=== PATIENT | female | born 1960 | race Caucasian/White ===

== ENCOUNTER 2017-07-04 14:28 | Emergency (ER) | payer BC, SELFPAY ==
[2017-07-04 14:28] VITALS: BP 122/91; PULSE 66; RESP 18; TEMP 36.6; O2SAT 97; BMI 48.4
--- NOTE | 2017-07-04 14:33 | RAD_ITS ---
STUDY: X-RAY - RIGHT SHOULDER REASON FOR EXAM: Female, 56 years old. Pain. No known injury. TECHNIQUE: 4 view(s) of the shoulder. COMPARISON: None. FINDINGS: Normal glenohumeral articulation. There is hypertrophic osteoarthrosis of the acromioclavicular joint with inferior osseous spur formation. Normal acromion. Normal humeral head and visualized proximal humerus. The soft tissue structures are unremarkable. Normal visualized pulmonary apex. RAD/Shoulder min 2 Views IMPRESSION: Degenerative changes of the acromioclavicular joint. Electronically Signed: Mars Negrete MD at 15:58 EDT Tel [phone], Service support ,
--- NOTE | 2017-07-04 15:38 | ED.VISSUMM ---
- ER Visit Summary Date of Service: 07/04/17 Chief Complaint: Right shoulder pain History of Present Illness: The patient is a [address] Clement Mccray. She reports she has right shoulder pain began approximately 1 month ago. Is worsened over the course the past 1-2 weeks. It is a constant stabbing pain that is 9 out of 10 at worst and a 10 currently. Is worsened by laying on it or abduction. She relieved by rest and Tylenol. She reports that she has paresthesias in her right deltoid that are constant. She reports that all of the finger on her right hand go numb at times. This last approximately 2 minutes. She denies any neck pain. She is right-hand dominant. No recent trauma. No fall, MVA, or change in activity. Physical Examination: Vitals: Stable. Afebrile. General: Well-nourished and well-developed. Head: Normocephalic atraumatic. Neck: Supple, no lymphadenopathy. No JVD. Nontender. Cardiovascular: Regular rate and rhythm. No murmurs. Respiratory: No respiratory distress. Clear to auscultation bilaterally. Abdominal: Soft, nontender, nondistended, normal bowel sounds. No guarding, rebound, or peritoneal signs. Back: Nontender. Extremities: Mild sinus palpation is diffuse over her deltoid. Moderate tenderness palpation the right trapezius muscle. Mild tenderness palpation in the right rhomboid muscles. She has normal median/ulnar/radial nerve function and motor distributions. She reports that she has paresthesias in her left hand and the C5-T1 distribution. This includes all fingers and her forearm. She has a 2+ radial pulse. She has 2+ biceps and triceps reflexes.. Skin: Normal color, no rash. Neurologic: Alert and oriented ?3. Cranial nerves II through XII are intact. Normal strength and sensation. Psych: Normal affect. Test Results: X-ray is negative. Emergency Department Course and Treatment: An [facility] report was obtained which shows had 12 prescriptions for opiates in the past year. She is treated with oxycodone here. Pain is reproducible. She has no overlying erythema to suggest a septic joint. I do not think that this is an aortic dissection. She has had pain for 1 month. Treatment Plan: She will be discharged with a short course of oxycodone instructed to follow-up with Dr. Clement Mccray in 1 week if not improving. Disposition: To home in improved and stable condition. Impression: 1. Right shoulder pain, acute. This note was generated with [employer] dictation software. It may contain incorrect words, spelling, and punctuation that were not noted in review of the chart prior to signing ED Disposition - Plan for ED Patient: Disposition: Home or Assisted Living Chief Complaint: Upper Extremity Injury Instructions: ED Shoulder Pain [facility] Prescriptions: Oxycodone HCl/Acetaminophen [Percocet 5/325] 1 tablet PO Q6H PRN PRN 5 Days #20 tablet PRN Reason: Pain Referrals: Clement Mccray MD [Primary Care Provider] - 3-5 Days if not improving
[2017-07-04] MEDS: oxyCODONE 5 MG Tablet 10 MG PO (16:07)
== END 2017-07-04 16:09 | disposition home or self-care (01) ==
PROVIDERS: Emergency Provider Emergency Medicine; Family Provider Family Medicine; PCP Family Medicine
DX: M25.511 Pain in right shoulder (principal); R20.2 Paresthesia of skin; J45.909 Unspecified asthma, uncomplicated; I10 Essential (primary) hypertension; M19.90 Unspecified osteoarthritis, unspecified site; Z79.899 Other long term (current) drug therapy
CPT/HCPCS: 73030; 99283

== ENCOUNTER 2017-08-16 20:20 | Emergency (ER) | payer BC, SELFPAY ==
[2017-08-16 20:22] VITALS: BP 157/80; PULSE 71; RESP 22; TEMP 36.6; O2SAT 96; BMI 50.1
--- NOTE | 2017-08-16 21:10 | US_ITS ---
STUDY: VENOUS DOPPLER ULTRASOUND - BILATERAL LOWER EXTREMITIES REASON FOR EXAM: Female, 56 years old. Bilateral swelling lower extremities TECHNIQUE: Ultrasound evaluation of the deep vein system to include moreira-scale imaging and compression was performed. Moreira-scale imaging and Doppler sonographic evaluation, including duplex spectral analysis and qualitative color flow sonography, was performed. COMPARISON: None. FINDINGS: RIGHT LEG Common Femoral Vein: Normal compression, spontaneity and augmentation. Normal color Doppler. Common Femoral Vein/Greater Saphenous Junction: Normal compression, spontaneity and augmentation. Normal color Doppler. Deep Femoral Vein: Normal compression, spontaneity and augmentation. Normal color Doppler. Femoral Proximal: Normal compression, spontaneity and augmentation. Normal color Doppler. Femoral Middle: Normal compression, spontaneity and augmentation. Normal color Doppler. Femoral Distal: Normal compression, spontaneity and augmentation. Normal color Doppler. Popliteal Vein: Normal compression, spontaneity and augmentation. Normal color Doppler. Posterior Tibial Vein: Normal compression, spontaneity and augmentation. Normal color Doppler. Peroneal Vein: Normal compression, spontaneity and augmentation. Normal color Doppler. LEFT LEG Common Femoral Vein: Normal compression, spontaneity and augmentation. Normal color Doppler. Common Femoral Vein/Greater Saphenous Junction: Normal compression, spontaneity and augmentation. Normal color Doppler. Deep Femoral Vein: Normal compression, spontaneity and augmentation. Normal color Doppler. Femoral Proximal: Normal compression, spontaneity and augmentation. Normal color Doppler. Femoral Middle: Normal compression, spontaneity and augmentation. Normal color Doppler. Femoral Distal: Normal compression, spontaneity and augmentation. Normal color Doppler. Popliteal Vein: Normal compression, spontaneity and augmentation. Normal color Doppler. Posterior Tibial Vein: Normal compression, spontaneity and augmentation. Normal color Doppler. Peroneal Vein: Normal compression, spontaneity and augmentation. Normal color Doppler. US/Venous Duplex Imag/Servando Extrem IMPRESSION: Normal venous Doppler ultrasound of the bilateral lower extremities. Electronically Signed: Jorge Iverson MD at 22:15 EDT , Service support ,
[2017-08-16 21:31] LABS: Absolute Lymphocyte Count 2.29 X10^3/ul (0.83-4.51); Absolute Neutrophil Count 3.7 X10^3/uL (2.0-7.7); Basophil# 0.02 X10^3/uL; Basophil% 0.3 % (0-1); Eosinophil# 0.32 X10^3/uL; Eosinophils% 4.5 % (0-5); Hematocrit 33.2 % (37-47); Hemoglobin 10.6 g/dl (12.0-15.0); Lymphocyte # 2.29 X10^3/ul (4.0); Lymphocyte % 32.5 % (19-41); Mean Corp Hgb Conc 31.9 g/gl (32-36); Mean Corpuscular Hgb 30.8 pg (27.0-32.0); Mean Corpuscular Volume 96.5 fL (81-99); Monocyte# 0.71 X10^3/uL; Monocyte% 10.1 % (0-10); Neutrophil # 3.66 X10^3/uL (2.7-7.7); Platelet Count 208 K/mm3 (150-450); RBC Distribution Width CV 14.6 % (11.6-14.6); RBC Distribution Width SD 49.3 fl (35.1-43.9); Red Blood Count 3.44 M/mm3 (4.2-5.4)
[2017-08-16 21:32] LABS: POSITIVE COUNT NO; POSITIVE DIFFERENTIAL NO; POSITIVE MORPHOLOGY NO
[2017-08-16 21:52] LABS: Anion Gap 6 (5-15); BUN 17 mg/dL (7-18); BUN/Creat Ratio 14.9 RATIO (10-20); Calcium,Total 8.5 mg/dL (8.5-10.1); Chloride 107 mmol/L (98-107); Creatinine, Serum 1.14 mg/dL (0.55-1.02); EST Glomerular Filtration Rate 52 mL/min (>60); Est Glom Filt Rate - Afr Amer 64 mL/min (>60); Estimated Creatinine Clearance 56.25 ml/min; Glucose 101 mg/dL (74-106); Potassium 3.8 mmol/L (3.5-5.1); Sodium Level 143 mmol/L (136-145)
--- NOTE | 2017-08-16 22:30 | ED.DCSUM_ITS ---
- ER Visit Summary Date of Service: 08/16/17 Chief Complaint: [Leg swelling and redness] History of Present Illness: The patient is a 56 F [presents the emergency department with complaint of 2 day history of swelling in her legs and redness. Patient states that typically she gets swelling in her legs that usually resolves at night and then gets worse again throughout the day. Patient states over last 2 days the swelling is has not been going away. Patient is noticed some redness to both lower extremities as well. Patient states that it is possible she may have bumped the right leg on something but she does not recall any direct trauma. Patient has no history of congestive heart failure or kidney disease. She does have a history of hypertension. No travel history or recent surgery. Patient's last surgery was in February of this year. Patient denies any chest pain or shortness of breath.] Physical Examination: [HEENT-PERRLA, EOMI. Cranial nerves II through XII grossly intact. TMs clear. Mucous membranes moist. No adenopathy. Cardiovascular-regular rate and rhythm without murmur or ectopy Lungs-clear to auscultation, chest wall stable without crepitus or subcu emphysema Abdomen-normoactive bowel sounds, soft, nontender, no rebound or rigidity, no peritoneal signs. Extremities-intact ?4, normal range of motion, normal pulses. Patient has +3 edema both lower extremities from below the knee to the feet. Patient has faint erythema and cellulitis of both lower extremities noted. No ropes or cords palpated. Patient has normal dorsal pedal and posterior tibial pulses bilaterally. Patient has normal popliteal and femoral pulses bilaterally. Test Results: [Venous Dopplers of both lower extremities were obtained and were negative for DVT. CBC with differential obtained showed a white blood cell count of 7.0, hemoglobin 10.6, hematocrit 33, platelets 208. Chemistries unremarkable. BUN was 17 and creatinine was 1.14.] Emergency Department Course and Treatment: [Patient was given 3 g of Unasyn IV] Treatment Plan: [Patient will be started on Keflex and will be discharged home with instructions to follow-up with her primary care physician within next 3-5 days. Patient to return if increased redness, fever, chills, or condition should worsen in any way.] Disposition: [Discharged home in stable condition] Impression: [Bilateral lower extremity cellulitis Bilateral lower extremity edema] This note was generated with [employer] dictation software. It may contain incorrect words, spelling, and punctuation that were not noted in review of the chart prior to signing ED Disposition - Plan for ED Patient: Chief Complaint: Edema Referrals: Clement Mccray MD [Primary Care Provider] -
--- NOTE | 2017-08-16 22:30 | ED.DEP ---
ED Disposition - Plan for ED Patient: Chief Complaint: Edema Instructions: ED Leg Swelling Bilateral, ED Infec Skin Cellulitis Prescriptions: Cephalexin [Keflex] 500 mg PO Q6 #40 cap Referrals: Clement Mccray MD [Primary Care Provider] - 3-5 Days
[2017-08-16] MEDS: HYDROcodone Bitartrate/Apap 5/325 Tablet PO (22:50)
[2017-08-16 22:52] VITALS: BP 150/68; PULSE 79; RESP 18; O2SAT 96
== END 2017-08-16 22:53 | disposition home or self-care (01) ==
LOC: ED 21:59
PROVIDERS: Emergency Provider Emergency Medicine; Family Provider Family Medicine; PCP Family Medicine
DX: L03.116 Cellulitis of left lower limb (principal); L03.115 Cellulitis of right lower limb; R60.0 Localized edema; I10 Essential (primary) hypertension; Z96.653 Presence of artificial knee joint, bilateral
CPT/HCPCS: 80048; 85025; 93970; 96365; 99284; J0295

== ENCOUNTER → 2017-09-13 12:38 | Outpatient (CLI) | payer BC, SELFPAY ==
--- NOTE | 2017-09-13 12:42 | ECHOD_ITS ---
Reason For Study: SOB Procedure This was a 2D Doppler, Color Flow transthoracic echocardiogram. The exam was of poor technical quality due to body habitus. The study was technically difficult. Contrast injection was performed. Exam performed in department. Left Ventricle Normal LV size. Left ventricular systolic function is normal. The estimated ejection fraction is 55 %. Normal diastology for age. No regional wall motion abnormalities noted. Right Ventricle Normal RV size. Normal systolic function. Atria The left atrium is mildly enlarged. Normal right atrium. No doppler evidence for ASD. Mitral Valve There is no mitral annular calcification. Normal mitral valve. Mild (1+) mitral valve insufficiency. Tricuspid Valve Normal tricuspid valve. Trivial tricuspid valve insufficiency. Right ventricular systolic pressure estimated to be 27 mmHg. Aortic Valve The aortic valve is not well visualized. Pulmonic Valve The pulmonic valve is not well visualized. Great Vessels Normal sized aortic root. Pericardium/Pleural No pericardial effusion. Medication 22 gauge I.V. with prn adaptor inserted into right arm. Diluted definity 7.0ml given slow IV push to enhance endocardial definition. MMode/2D Measurements & Calculations LVIDd: 4.2 cm IVSd: 1.4 cm Ao root diam: 3.0 cm LVIDs: 3.0 cm LVPWd: 1.4 cm LA dimension: 4.8 cm RVDd: 2.9 cm FS: 28.9 % LAV(MOD-bp): 69.3 ml LA A4 area: 20.7 cm2 RA A4 area: 14.4 cm2 LAV(MOD-bp) Indexed: 27.9 ml/m2 LAV(MOD-sp2): 72.5 ml LAV(MOD-sp4): 62.8 ml Doppler Measurements & Calculations MV E max agustin: 102.7 cm/sec Lat Peak E' Agustin: 12.1 cm/sec Med Peak E' Agustin: 7.2 cm/sec MV A max agustin: 72.3 cm/sec E/E' lat: 8.5 E/E' med: 14.2 MV E/A: 1.4 Ao V2 max: 141.4 cm/sec LV V1 max: 114.7 cm/sec PA V2 max: 86.8 cm/sec Ao max P.0 mmHg LV V1 max P.3 mmHg TR max agustin: 240.7 cm/sec TR max P.5 mmHg Interpretation Summary The study was technically difficult. Contrast injection was performed. Left ventricular systolic function is normal. The estimated ejection fraction is 55 %. The left atrium is mildly enlarged. Mild (1+) mitral valve insufficiency. Trivial tricuspid valve insufficiency. Right ventricular systolic pressure estimated to be 27 mmHg. Normal diastology for age. Ordering Physician: Clement Mccray Referring Physician: Clement Mccray Performed By: Brianda De La Cruz RDCS, RVT
== END ==
LOC: CVS 12:39
PROVIDERS: Family Provider Family Medicine; PCP Family Medicine; Visit Provider Family Medicine
DX: R06.02 Shortness of breath (principal); R60.9 Edema, unspecified
CPT/HCPCS: 93306; Q9957; A4216; C8929

== ENCOUNTER → 2017-10-31 11:18 | Outpatient (CLI) | payer BC, SELFPAY ==
[2017-10-31 15:52] LABS: Anion Gap 6 (5-15); BUN 21 mg/dL (7-18); BUN/Creat Ratio 16.9 RATIO (10-20); Calcium,Total 8.7 mg/dL (8.5-10.1); Chloride 104 mmol/L (98-107); Creatinine, Serum 1.24 mg/dL (0.55-1.02); EST Glomerular Filtration Rate 48 mL/min (>60); Est Glom Filt Rate - Afr Amer 58 mL/min (>60); Glucose 107 mg/dL (74-106); Potassium 4.1 mmol/L (3.5-5.1); Sodium Level 139 mmol/L (136-145)
== END ==
PROVIDERS: Family Provider Family Medicine; PCP Family Medicine; Visit Provider Family Medicine
DX: R60.9 Edema, unspecified (principal)
CPT/HCPCS: 36415; 80048

== ENCOUNTER → 2019-11-13 | Outpatient (CLI) | payer BC, SELFPAY ==
[2019-11-13 14:16] VITALS: BMI 50.1
== END | disposition home or self-care (01) ==
LOC: LABSPEC 15:59
PROVIDERS: PCP Family Medicine; Referring Provider Surgery; Visit Provider Surgery
DX: L02.11 Cutaneous abscess of neck (principal)
CPT/HCPCS: 87070; 87075; 87077; 87186; 87205

== ENCOUNTER 2019-12-18 11:52 | Day surgery (SDC) | payer BC, SELFPAY ==
--- NOTE | 2019-12-18 08:43 | HP_ITS ---
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 And Finishing Required: No Is patient in pain?: No Allergies No Known Allergies Allergy (Verified 11/27/19 13:15) Medications Atenolol 50 mg PO BID 09/15/16 [History Confirmed 11/27/19] Ibuprofen [Motrin] 800 mg PO TID PRN PRN #20 tab 09/15/16 [Rx Confirmed 11/27/19] Ropinirole HCl [Requip] 0.5 mg PO QHS 09/15/16 [History Confirmed 11/27/19] Meloxicam [Mobic] 15 mg PO DAILY 08/16/17 [History Confirmed 11/27/19] Multivitamin [Daily Multiple Vitamin] 1 ea PO DAILY 08/16/17 [History Confirmed 11/27/19] gabapentin 300 mg capsule ea PO 06/18/19 [History Confirmed 11/27/19] albuterol sulfate 90 mcg/actuation aerosol inhaler g INHALATION 11/13/19 [History Confirmed 11/27/19] Is last menstrual period known: No Post menopausal: Yes Patient : No PFSH Medical History Anemia (Acute) Asthma (Acute) Back pain (Acute) Depression (Acute) Morbid obesity (Acute) Restless leg (Acute) Arthritis (Chronic) HTN (hypertension) (Chronic) Surgical History History of section (Acute) History of total hip replacement (Acute) History of total knee replacement (TKR) (Acute) History of carpal tunnel release (Resolved) Family History Mother Asthma Father Kidney disease Sleep apnea Heart disease Brother Hypertension Cancer brain Sleep apnea Social History (Updated 11/27/19 @ 13:[address] Lg Gunn MD) Smoking Status: Former smoker HPI HPI HPI: COLT CLANCY, is a 59 F who presents to the office today for HPI HPI Surgical H&P: Yes HPI: COLT CLANCY, is a 59 F who presents to the office today for Excision of neck cyst ROS General General: No weight change or fatigue Cardio Cardiovascular: No murmur, pacemaker, heart disease, atrial fibrillation, high blood pressure, heart attack, heart stent, palpitations, shortness of breat with exertion or chest pain Psych Psychiatric: No depression or anxiety Resp Respiratory: No shortness of breath, No sleep apnea, No cough, No COPD, No asthma, No emphysema, No wheezing Gastro Gastrointestinal: No abdominal pain, No nausea or vomiting, No diarrhea, No constipation, No blood in stool, No acid reflux, No hemorrhoids, No ulcers, No gallbladder problem, No black,tarry stools Ottoniel Hematologic: No blood thinners Exam Const General: cooperative Orientation: alert, oriented x3 Resp Effort & Inspection: normal respiratory effort Auscultation: clear to auscultation bilaterally Cardio Rate: regular rate Rhythm: regular rhythm Heart Sounds: no murmurs GI Inspection: non-distended Palpation: soft, nontender Skin Other: Erythematous area over the posterior neck Office Procedures Incision and Drainage Provider Documentation Provider Documentation: The posterior neck was prepped and draped in usual sterile fashion. An area of the skin was anesthetized and a skin incision was made over the prior incision. This was deepened to the cavity of the sebaceous cyst. The patient still had purulent material as well as sebaceous material in the cyst. This was cleaned out and irrigated. The tissue surrounding the cyst was still very inflamed. At this time I was unable to remove the cyst wall. The cyst was packed with half-inch gauze. Alert Sherri Alert Billing: Yes Incision and Drainage 89542 Complex/Multiple Assessment & Plan Problems 1. Infected sebaceous cyst L72.3; L08.9 Plan The patient had I&D of infected sebaceous cyst of the posterior neck about a week ago. She was doing well after drainage and came in today for excision of the cyst. The cyst was still inflamed with purulent material. It was drained more extensively and all of the sebaceous material was removed from the cyst. It was irrigated and packed with half-inch gauze. Due to the inflammation around the cyst I was unable to remove the cyst wall. I will have her follow-up in 2 to 3 weeks for excision of the posterior neck cyst in the operating room. I discussed with her the risks of bleeding and infection and the patient would like to proceed with that plan. Lg Gunn MD Pager: [facility] [address] [place] [address], [address] [place] [id number] Office: Orders Orders: Incision and Drainage Today L08.9, L72.3 Coding Level of Care Code Attention Sherri Diagnoses Infected sebaceous cyst L72.3; L08.9 Additional Codes Incision and Drainage - I&D: 57270 Complex/Multiple (43430) I have re-examined the patient. There are no clinical changes since date of exam.
[2019-12-18 12:22] VITALS: BP 144/90; PULSE 55; RESP 16; TEMP 36.6; O2SAT 96; BMI 50.9
[2019-12-18] MEDS: Lactated Ringers 1,000 ML 100 ML IV (12:48)
[2019-12-18] MEDS: Cefazolin 2 GM in 0.9% Normal Saline 100 ML IV (13:14)
[2019-12-18 13:50] VITALS: BP 136/113; BP 144/90; PULSE 56; RESP 16; TEMP 36.3; O2SAT 99
[2019-12-18 13:55] VITALS: BP 144/90; BP 152/73; PULSE 55; RESP 16; O2SAT 96
--- NOTE | 2019-12-18 13:57 | PCM.OPRPT ---
Problem List (1) Infected sebaceous cyst Status: Acute Report of Operation Date of Procedure: 12/18/19 Pre-Operative Diagnosis: Infected sebaceous cyst of the posterior neck Post-Operative Diagnosis: Same Surgery/Procedure Performed:: Excision of infected sebaceous cyst, posterior neck Description of Procedure: Patient was brought back to the operating room and placed in a left lateral decubitus position. The posterior neck was prepped and draped in usual sterile fashion and MAC anesthesia was induced. The area surrounding the cyst was injected with local anesthetic and an elliptical incision was made and the skin was excised overlying the cyst. The deeper tissue was sharply excised as well and the cyst was fully removed. Electrocautery was used to maintain hemostasis. The cyst cavity was approximately 1.5 cm. The skin was closed with 3 interrupted 3-0 nylon sutures very loosely and bandage. Patient tolerated the procedure well. - Admit VTE Documentation VTE Mechan Device Prophylaxis: SCD's
[2019-12-18 14:00] VITALS: BP 144/90; BP 160/75; PULSE 53; RESP 16; O2SAT 97
--- NOTE | 2019-12-18 14:04 | DCINST_ITS ---
- Discharge Diagnoses Current Active Problems: Current Active and Chronic Problems (Last Reviewed 11/27/19 @ 13:15 by Anisa Guillermo) Infected sebaceous cyst (Acute) You will use the following diet at home:: Regular Discharge Activity: Return to Normal Activity Call your doctor if your incision/area has: Continuous Slow Oozing, Sudden Increased Bleeding, Increased Pain/ Swelling, Increased Redness, Foul Smelling Discharge, Swelling at the incision site Call your doctor if you observe: Fever of 101 or Higher Remove Dressing in (days):: 1 Cleanse incision/area with: Soap & Water Allergies/Adverse Reactions: Allergies No Known Allergies Allergy (Verified 12/11/19 08:40) Medications to take at Discharge Atenolol 50 mg PO BID 09/15/16 Ropinirole HCl [Requip] 0.5 mg PO QHS 09/15/16 Meloxicam [Mobic] 15 mg PO DAILY 08/16/17 Multivitamin [Daily Multiple Vitamin] 1 ea PO DAILY 08/16/17 gabapentin 300 mg capsule 300 mg PO BID 06/18/19 albuterol sulfate 90 mcg/actuation aerosol inhaler 1 puff INHALATION PRN PRN 11/13/19 Furosemide [Lasix] 40 mg PO DAILY 12/11/19 Potassium Chloride [Klor-Con] 20 meq PO DAILY 12/11/19 Test Results: Test results from this visit will be discussed in further detail at your follow- up appointment, if applicable. Please Follow Up With: Lg Gnun MD When: Please call to schedule 1 week follow up appointment. [phone]
[2019-12-18 14:05] VITALS: BP 144/90; BP 152/73; PULSE 53; RESP 16; TEMP 36.2; O2SAT 99
[2019-12-18 14:47] VITALS: BP 144/90
== END 2019-12-18 14:54 | disposition home or self-care (01) ==
LOC: SDC 11:53 → AC 11:55
PROVIDERS: PCP Family Medicine; Referring Provider Family Medicine; Visit Provider Surgery
PROC: (CPT 11422; principal; 2019-12-18 13:15)
DX: L72.3 Sebaceous cyst (principal); L08.9 Local infection of the skin and subcutaneous tissue, unspecified; Z20.828 Contact with and (suspected) exposure to other viral communicable diseases; I10 Essential (primary) hypertension; J45.909 Unspecified asthma, uncomplicated; G25.81 Restless legs syndrome; E66.01 Morbid (severe) obesity due to excess calories; Z79.1 Long term (current) use of non-steroidal anti-inflammatories (NSAID); Z79.899 Other long term (current) drug therapy; Z78.0 Asymptomatic menopausal state; Z87.891 Personal history of nicotine dependence
CPT/HCPCS: 11422; 87426; C9803; J7120

== ENCOUNTER 2019-12-28 14:44 | Emergency (ER) | payer BC, SELFPAY ==
[2019-12-28 14:46] VITALS: BP 151/85; PULSE 61; RESP 16; TEMP 36; O2SAT 96; BMI 49.4
--- NOTE | 2019-12-28 14:58 | RAD_ITS ---
STUDY: X-RAY - LEFT FOOT CLINICAL: Female, 59 years old. Left heel pain for several weeks. TECHNIQUE: 3 view(s) of the foot. COMPARISON: None. FINDINGS: There is a plantar calcaneal spur. Degenerative narrowing with dorsal spur formation of the tarsal-metatarsal articulations. There are deformities of the second through fifth metatarsal suggesting sequela of prior healed fracture. Normal metatarsophalangeal joint of the great toe. Normal tibial and fibular sesamoid bones. Normal interphalangeal joint of the great toe. Normal phalanges of the great toe. Normal second through fifth metatarsophalangeal joints. Normal interphalangeal joints and phalanges of the lesser toes. The soft tissue structures are unremarkable. RAD/Foot min 3 Views IMPRESSION: No acute fracture. Calcaneal spur. Degenerative changes of the midfoot. Old metatarsal fractures. Electronically Signed: Bhupendra Chatman MD ([place]) at 15:19 EST , Service support ,
--- NOTE | 2019-12-28 14:58 | ED.VIS.GEN ---
History of Present Illness Chief Complaint: Lower Extremity Injury Informant: Patient Onset: Month(s) - 1 month or more Context: Gradual Onset Timing: Waxes and wanes Current Severity: Mild Maximum Severity: Moderate Narrative: She presents with left foot pain. She states is been bothering her for a month or more but seems to be getting worse and having more difficulty ambulating. She points to the plantar surface of the foot near the calcaneus as well as along the medial aspect of the first MTP joint. No open wounds or erythema. Patient states she is been taking Tylenol without significant provement. - Past Medical History (1) Asthma Status: Chronic (2) Back pain Status: Chronic (3) Depression Status: Chronic (4) Arthritis Status: Chronic (5) HTN (hypertension) Status: Chronic Past Medical History - Allergies and Home Meds Allergies/Adverse Reactions: Allergies No Known Allergies Allergy (Verified 12/28/19 14:46) Primary Care Physician: Clement Mccray MD [Primary Care Provider] - Prior records reviewed: Yes Smoking Status: Former smoker Review of Systems General: Denies: Chills, Fever Eyes: Denies: Visual changes - bilaterally ENT: Denies: Bilateral ear pain Cardiovascular: Denies: Chest pain Respiratory: Denies: Dyspnea, Cough Gastrointestinal: Denies: Abdominal pain Musculoskeletal: Reports: Extremity Pain Skin: Denies: Rash, Wounds Neurological: Denies: Headache Hematologic: Denies: Easy bruising, Easy bleeding Allergy: Denies: Uticaria Physical Exam Vital Signs/Narrative: Vital Signs Temp Pulse Resp BP Pulse Ox 12/28/19 14:46 96.8 F L 61 16 151/85 H 96 Inital Vital Signs reviewed: Yes General: Well nourished, Well developed Head: Normocephalic ENT: Moist mucous membranes Neck: Supple Cardiovascular: Regular rate, Regular rhythm Respiratory: No distress, CTA bilaterally Abdomen: Soft, Nontender Extremities: - - Tenderness palpation on the plantar surface of the foot near the calcaneus. Patient also has tenderness on the medial foot at the MTP joint. No erythema or edema. Good distal pulses. No open wounds. Neurological: Alert, Oriented x3, Normal Strength, Normal Sensation Psychological: Normal affect Diagnostic/Tx/Re-eval Left foot x-ray per my interpretation reveals arthritic changes. She does have significant calcaneal heel spur. - Medical Decision Making Patient was given naproxen. Fredis wrap was applied to the left foot and x-rays are reviewed with her. Patient will follow up with her educational consultant in [place]. I will write her work restrictions as she does state she is on her feet all day at work. ED Disposition - Plan for ED Patient: Disposition: Home or Assisted Living Diagnosis: Plantar fasciitis Instructions: ED Heel Spur, ED Plantar Fasciitis Prescriptions: Naproxen [Naprosyn] 500 mg PO BID PRN PRN #20 tab PRN Reason: Pain Score 4-10 Transmission Status: Pending to [id number] Referrals: Clement Mccray MD [Primary Care Provider] - Maico Chopra DPM [STAFF PHYSICIAN] - As soon as possible
[2019-12-28] MEDS: Naproxen 500 MG Tablet PO (15:14)
== END 2019-12-28 15:24 | disposition home or self-care (01) ==
PROVIDERS: Emergency Provider Emergency Medicine; PCP Family Medicine
DX: M72.2 Plantar fascial fibromatosis (principal); M77.32 Calcaneal spur, left foot; I10 Essential (primary) hypertension; J45.909 Unspecified asthma, uncomplicated; M19.90 Unspecified osteoarthritis, unspecified site; F32.9 Major depressive disorder, single episode, unspecified; Z79.899 Other long term (current) drug therapy; Z87.891 Personal history of nicotine dependence
CPT/HCPCS: 73630; 99282

== ENCOUNTER → 2021-10-12 | Outpatient (CLI) | payer BC, SELFPAY ==
--- NOTE | 2021-10-12 13:03 | NEURO ---
NCS and/or EMG Patient Report Ordering Doctor: Clement Mccray DATE OF SERVICE: 10/12/21 Maritza presents for electrodiagnostic testing of the left upper limb. She reports numbness and tingling in the left hand. Electrodiagnostic findings: Left median motor nerve demonstrates prolonged distal latency with normal amplitude and reduced conduction velocity. Normal left ulnar motor response. Difficult to obtain a response above the left elbow secondary to the patient's body habitus. Left median F wave is prolonged. Normal left ulnar F-wave. Prolonged left median sensory latency at the wrist. On needle EMG, all muscles tested in the left upper limb showed no evidence of denervation with normal motor unit action potentials Electrodiagnostic impression: This is an abnormal study in the left upper limb 1. Electrodiagnostic findings demonstrate left-sided median mononeuropathy. This is consistent with a moderate left carpal tunnel syndrome.
== END | disposition home or self-care (01) ==
PROVIDERS: PCP Family Medicine; Referring Provider Family Medicine; Visit Provider Family Medicine
DX: G56.02 Carpal tunnel syndrome, left upper limb (principal)
CPT/HCPCS: 95886; 95910

== ENCOUNTER → 2022-10-11 | Outpatient (CLI) | payer BC, SELFPAY | END | disposition home or self-care (01) | LOC: CVS 09:02 | PROVIDERS: PCP Family Medicine; Referring Provider Family Medicine; Visit Provider Family Medicine | DX: M79.89 Other specified soft tissue disorders (principal) | CPT/HCPCS: 93306 ==

== ENCOUNTER → 2023-01-17 | Outpatient (CLI) | payer BC, SELFPAY ==
--- NOTE | 2023-01-17 08:18 | CT_ITS ---
STUDY: CT CHEST WITHOUT CONTRAST REASON FOR EXAM: Female, 62 years old. SOB COUGH RADIATION DOSAGE (If Supplied By Facility): CTDIvol = ( 28.09 ) mGy, DLP = ( 970.02 ) mGycm TECHNIQUE: Transaxial imaging was performed without the administration of intravenous contrast material. Individualized dose optimization techniques were used for this CT. COMPARISON: No relevant priors. FINDINGS: CHEST Benign-appearing bilateral axillary lymph nodes. The lungs are normal. There is no demonstrated pleural abnormality. There are calcifications of the coronary arteries. Normal mediastinum. Calcified left hilar lymph nodes. Normal unenhanced pulmonary arteries. Normal aorta arch and descending thoracic aorta. There are degenerative changes of the thoracic spine. Scattered calcified splenic granulomas. CT/Chest without Contrast IMPRESSION: No pulmonary abnormality is seen. Electronically Signed: Mars Negrete MD at 13:23 EST ,
== END | disposition home or self-care (01) ==
LOC: CT 08:16
PROVIDERS: PCP Family Medicine; Referring Provider Internal Medicine Pulmonary Disease; Visit Provider Internal Medicine Pulmonary Disease
DX: R06.02 Shortness of breath (principal); R05.9 Cough, unspecified
CPT/HCPCS: 71250

== ENCOUNTER → 2023-03-28 | Outpatient (CLI) | payer BC, SELFPAY ==
--- OUTSIDE RECORDS SUMMARY | 2023-03-28 11:30 | XMS RPT_ITS | CCD ---
Author Name Unknown Address [address] [place] [address] Organization [facility] Care Team Providers Care Cutting Supervisor Name Role Phone LISSETH HONAG Unavailable Unavailable LISSETH HOANG Unavailable Unavailable BENITO KING Unavailable Unavailable SHELL TELLEZ ([employer]) Unavailable Unavailable SHELL TELLEZ ([facility]) Unavailable Unavailable Promise Mccray MD Primary Care Provider [phone] PROMISE MCCRAY Primary Care Unavailable FLY DELUNA Referring Unavailable PROMISE MCCRAY Primary Care Unavailable FLY DELUNA Attending Unavailable PROMISE MCCRAY Primary Care Unavailable PROMISE MCCRAY Primary Care Unavailable Medications Completed/Discontinued Medications Medication Drug Class(es) Dates Sig (Normalized) Sig (Original) acetaminophen 500 mg oral tablet (5 sources) Start: 01-23-2017 take 2 tablets by mouth every eight hours acetaminophen (TYLENOL EXTRA STRENGTH) 500 mg tablet Take 2 tablets by mouth every 8 hours. 60 tablet 3 01/23/2017 Active Problems Active Problems Problem Classification Problem Date Documented Da te Episodic/Chronic Asthma (1 source) Mild intermittent asthma, uncomplicated; Translations: [Asthma, mild intermittent, poorly controlled] Onset: 11-01-2022 Chronic Deficiency and other anemia (5 sources) Anemia; Translations: [Anemia, unspecified] 05-30-2012 Episodic Disorders of lipid metabolism (5 sources) Hyperlipidemia; Translations: [Hyperlipidemia, unspecified] Onset: 04-07-2009 2009 Chronic Essential hypertension (5 sources) Benign essential hypertension; Translations: [Essential (primary) hypertension] 2009 Chronic Osteoarthritis (16 sources) Unilateral primary osteoarthritis, left hip; Translations: [Degenerative joint disease involving multiple joints] Onset: 08-25-2011 2009 Chronic Other connective tissue disease (5 sources) History of bilateral total knee replacement; Translations: [Presence of artificial knee joint, bilateral] Onset: 10-26-2016 10-26-2016 Chronic Other connective tissue disease (5 sources) History of total hip arthroplasty; Translations: [Presence of left artificial hip joint] Onset: 10-26-2016 01-24-2017 Chronic Other hereditary and degenerative nervous system conditions (1 source) Restless legs syndrome; Translations: [Restless legs syndrome (RLS)] Onset: 11-01-2022 Chronic Other nutritional; endocrine; and metabolic disorders (5 sources) Obesity; Translations: [Obesity, unspecified] 01-04-2017 Chronic Other nutritional; endocrine; and metabolic disorders (5 sources) Body mass index 40+ - severely obese; Translations: [Morbid (severe) obesity due to excess calories] Onset: 01-22-2017 01-24-2017 Chronic Other screening for suspected conditions (not mental disorders or infectious disease) (9 sources) Patient encounter status; Translations: [Encounter for screening mammogram for malignant neoplasm of breast] Onset: 05-30-2012 08-17-2022 Episodic Spondylosis; intervertebral disc disorders; other back problems (5 sources) Lumbosacral spondylosis without myelopathy; Translations: [Spondylosis without myelopathy or radiculopathy, lumbosacral region] Onset: 08-30-2016 08-30-2016 Chronic Unclassified (1 source) Unknown / UNK(Unknown) Onset: 01-16-2017 Past or Other Problems Problem Classification Problem Date Documented Da te Episodic/Chronic Diabetes mellitus without complication (5 sources) Impaired fasting glycemia; Translations: [Impaired fasting glucose] Onset: 04-07-2009 2009 Episodic Other non-traumatic joint disorders (5 sources) Hip pain; Translations: [Pain in unspecified hip] Onset: 03-27-2011 03-27-2011 Episodic Spondylosis; intervertebral disc disorders; other back problems (10 sources) Low back pain; Translations: [Lumbago] Onset: 05-28-2008 2009 Episodic Results Test Name Value Interpretation Reference Range Facil ity Vital Signs Date Time Vital Sign Value Performing Clinician Leif velasco 09-20-2022 11:18-0400 Body height 172.7 cm Fly Deluna MD Work Phone: [facility] 09-20-2022 11:18-0400 Body weight 162.84 kg Fly Deluna MD Work Phone: [facility] 09-20-2022 11:18-0400 Diastolic blood pressure 88 mm[Hg] Fly Deluna MD Work Phone: [facility] 09-20-2022 11:18-0400 Systolic blood pressure 142 mm[Hg] Fly Deluna MD Work Phone: [facility] Encounters Encounter Date Encounter Type Care Provider Facility Start: 11-01-2022 End: 11-02-2022 ambulatory PROMISE MCCRAY Facility:[facility] Start: 09-28-2022 Documentation procedure Mammog darien Coordinator [facility] Start: 09-28-2022 Letter encounter Mammography Coordinator [facility] Department Start: 09-27-2022 End: 09-27-2022 ambulatory FLY DELUNA Facility:[facility] Start: 09-27-2022 End: 09-27-2022 Subsequent hospital visit by physician Screen Mammo [facility] Mammogram Procedures Date Procedure Procedure Detail Performing Clinician Start: 09-27-2022 End: 09-27-2022 Mammography Fly Deluna MD Work Phone: Start: 03-31-2022 Radiologic exam ches t 2 views [facility] Provider Start: 03-23-2021 Mammography Fly palmer MD Work Phone: Start: 05-29-2012 Lipid 1996 panel - Serum or Plasma Screen [facility] Start: 12-12-2007 H/O: artificial joint KNEE JOINT REP LACEMENT Fly Deluna MD Work Phone: Plan of Treatment Date Care Activity Detail Author Start: 03-23-2026 HPV TESTING HPV TESTING [facility] Start: 03-23-2026 PAP TESTING PAP TESTING [facility] Start: 09-28-2023 Mammography [facility] Start: 10-06-2022 Covid-19 Vaccine () Covid-19 Vaccine () [facility] Start: 10-06-2022 Influenza vaccination [facility] Start: 05-28-2022 DIABETES SCREEN DIABETES SCREEN [facility] Start: 05-28-2022 Diabetes Screening Diabetes Screening [facility] Start: 03-23-2022 Mammography MAMMOGRAM [facility] Start: 02-05-2022 DEPRESSION ASSESSMENT DEPRESSION ASSESSMENT [facility] Start: 2021 RSV Vaccine (1 - 1-dose 60+ series) RSV Vaccine (1 - 1-dose 60+ series) [facility] Start: 11-23-2020 COVID-19 VACCINE (3 - Pfizer series) COVID-19 VACCINE (3 - Pfizer series) [facility] Start: 05-29-2017 Lipid 1996 panel - Serum or Plasma Lipid Screening [facility] Start: 05-29-2017 LIPID SCREEN LIPID SCREEN [facility] Start: 01-20-2014 Urine microalbumin profile [facility] Start: 10-22-2011 SHINGRIX VACCINE (1 of 2) SHINGRIX VACCINE (1 of 2) [facility] Start: 2006 COLOGUARD (FIT-DNA) COLOGUARD (FIT-DNA) [facility] Start: 2006 Colonoscopy COLONOSCOPY [facility] Start: 2006 COLORECTAL CANCER SCREENING COLORECTAL CANCER SCREENING [facility] Start: [address] COLONOGRAPHY [facility] Start: 2006 FECAL OCCULT BLOOD FECAL OCCULT BLOOD [facility] Start: 2006 SIGMOIDOSCOPY SIGMOIDOSCOPY [facility] Start: 10-22-1979 ANNUAL PCP TEAM CHRONIC DISEASE VISIT ANNUAL PCP TEAM CHRONIC DISEASE VISIT [facility] Start: 10-22-1979 BP CONTROLLED (<130/80) BP CONTROLLED (<130/80) [facility] Start: 10-22-1979 HEPATITIS C SCREENING HEPATITIS C SCREENING [facility] Start: 10-22-1979 HIV SCREENING HIV SCREENING [facility] End: 09-16-2023 CARLIN SCREENING CARLIN SCREENING Radiology Routine Encounter for screening mammogram for malignant neoplasm of breast 1 Occurrences starting 08/18/2022 until 09/16/2023 [facility] Work Phone: Immunizations Immunization Date Immunization Notes Care Provider Jing moseley 01-07-2020 influenza, injectabl e, quadrivalent, contains preservative Fly Deluna MD Work Phone: [facility] 01-07-2020 influenza virus vacc ine, unspecified formulation Screen Wstr [facility] 01-23-2017 influenza, injectabl e, quadrivalent, preservative free Fly Deluna MD Work Phone: [facility] 01-23-2017 pneumococcal polysaccharide vaccine, 23 valent Fly Deluna MD Work Phone: [facility] 02-24-2011 influenza virus vacc ine, unspecified formulation Fly Deluna MD Work Phone: [facility] 02-24-2011 pneumococcal polysaccharide vaccine, 23 valent Fly Deluna MD Work Phone: [facility] 12-08-2004 influenza virus vacc ine, unspecified formulation Fly Deluna MD Work Phone: [facility] Work Phone: 01-21-2004 tetanus and diphther ia toxoids, adsorbed, preservative free, for adult use (2 Lf of tetanus toxoid and 2 Lf of diphtheria toxoid) Fly Deluna MD Work Phone: [facility] Work Phone: 02-05-2003 diphtheria, tetanus toxoids and acellular pertussis vaccine, unspecified formulation Fly Deluna MD Work Phone: [facility] Work Phone: Payers Date Payer Category Payer Unknown [employer] PPO OOS [id number] 2012-Present [phone] [address] [place] [address] PPO [id number] 2012 Unknown [id number] Social History Date Type Detail Facility Start: 05-22-2012 End: 09-20-2022 Tobacco smoking status NHIS Ex-smoker [facility] Work Phone: End: 12-07-1994 History of tobacco use Current smoker [facility] Work Phone: End: 12-07-1994 History of tobacco use Cigarette Smoker [facility] Work Phone: Start: 05-22-2012 End: 01-13-2020 Cigarettes smoked current (pack per day) - Reported 1 [facility] Start: 05-22-2012 End: 09-20-2022 Tobacco use and exposure Smokeless tobacco non-user [facility] Work Phone: Start: 03-23-2021 End: 09-20-2022 Alcohol intake Current non-drinker of alcohol (finding) [facility] Start: 01-13-2020 End: 03-23-2021 Tobacco use panel [facility] National Score (1-10 0), lower number is lower risk Not on file [facility] Start: 05-22-2012 Alcohol Comment rarely [facility] Start: 1960 Sex Assigned At Not on file C [facility] Medical Equipment Procedure Code Equipment Code Equipment Origin al Text Equipment Identifier Dates Head Fem -2mm 36mm Hip M - [id number] Start: 02-23-2011 Head Articul/Andreas 36mm +5mm 01/18 Metal Femoral M-Spec Hip - [id number] Start: 01-23-2017 Clinical Notes 01-23-2017 to 09-28-2022 Letter - Coordinator, Mammography - 09/28/2022 4:41 PM Fly Dawn MD - 09/20/2022 11:09 AM EDTTelephone Encounter - Kari Hanks LPN - 08/18/2022 10:35 AM EDT Note Date & Type Note Facility 09-28-2022 Miscellaneous Notes September 29, 2022 PID: [id number] Maritza Mir [address] [place] [address] Dear Ms. Mir, We are pleased to inform you that the results of your recent breast imaging exam on 09/27/2022 are normal. Early detection of cancer is very important. We also understand recommendations regarding breast cancer screening are controversial. Please discuss with your primary care provider which strategy is best for you and whether a mammogram is right for you. Your imaging studies and report will be kept on file at [facility] as part of your permanent medical record and are available for your continuing care. Thank you for allowing us to help in meeting your health care needs. Sincerely, Dr. Teague Interpreting Radiologist [facility] (Normal over 40) documented in this encounter [facility] 09-20-2022 Note HNO ID: [id number] Author: Fly Deluna MD Service: ? Author Type: Physician Type: Progress Notes Filed: 09/20/2022 11:49 AM Note Text: Maritza is a 61 year old who presents for an annual gynecologic exam with c/o urinary leaking. Urgency at times. Leaks when she stands up at times. Doesn't usually get up at night. Drinks water and iced tea throughout the day. Postmenopausal: yes HRT use: No. Last Pap: 03/29/2021 normal HPV: 03/25/2021 negative History of abnormal pap: No Last mammogram: 2022 normal History of abnormal mammogram: No Sexually active: not often OB History T0 L3 SAB0 IAB0 Ectopic0 Multiple0 Live Births4 Docket Clerk History LMP: 11/17/2009, Ablation Age at Menarche: Age at First : Age at Menopause: Docket Clerk History Comments: Sexual Activity: Yes; Male Contraception: Tubal Ligation PAST MEDICAL HISTORY Diagnosis Date Anemia Asthma Back pain Depression Essential hypertension, benign Generalized osteoarthrosis, unspecified site Dr Hoang-davis Headache(784.0) Hyperlipidemia Impaired fasting glucose Nocturnal leg cramps spasms controlled with requip Obesity, unspecified Snoring PAST SURGICAL HISTORY Procedure Laterality Date ARTHRP ACETBLR/PROX FEM PROSTC AGRFT/ALGRFT 02/24/2011 right hip ARTHRP ACETBLR/PROX FEM PROSTC AGRFT/ALGRFT Left 01/2017 ARTHRP KNE CONDYLEANDPLATU MEDIALANDLAT COMPARTMENTS 11/12 left knee replacement ARTHRP KNE CONDYLEANDPLATU MEDIALANDLAT COMPARTMENTS 03/17/09 right [facility], [facility] , low cervical CYST/MOLE REMOVAL 12/2019 LIG/TRNSXJ FLP TUBE ABDL/VAG APPR UNI/BI 1998 Tubal ligation NEUROPLASTY AND/TRANSPOS MEDIAN NRV CARPAL TUNNE 2004 Carpal tunnel decomp RIGHT PAST SURGICAL HISTORY OF December 14, 2009 Diagnostic Hysteroscopy, Uterine Dilation and Curettage PAST SURGICAL HISTORY OF December 14, 2009 Novasure Endometrial Ablation UNSPECIFIED ORAL SURGERY PROCEDURE, BY REPORT 1980 jaw reconstruction FAMILY HISTORY Problem Relation Age of Onset Asthma Mother other (Fibromyalgia) Mother Emphysema Father Hypertension Father Coronary Artery Disease Father stent placement (late in life) other (sleep apnea) Father Hypertension Brother other (sleep apnea) Brother Cancer Son brain Colon Cancer No Family History SOCIAL HISTORY Social History Tobacco Use Smoking status: Former Packs/day: 1.00 Years: 15.00 Additional pack years: 0.00 Total pack years: 15.00 Types: Cigarettes Quit date: 12/07/1994 Years since quittin.8 Smokeless tobacco: Never Vaping Use Vaping Use: Never used Substance Use Topics Alcohol use: No Comment: rarely Drug use: No REVIEW OF SYSTEMS Abdomen: No abdominal pain, nausea, vomiting, diarrhea, or constipation. No bloating, early satiety, indigestion, or increased flatulence. Bladder: No dysuria, gross hematuria, urinary frequency, urinary urgency, or incontinence Breast: No breast lumps, nipple d/c, overlying skin changes, redness or skin retraction Allergies and current medication updated:Yes EXAM: BP 142/88 Ht 5' 8 (1.73m) Wt 359 lb (162.8kg) LMP 11/17/2009 BMI 54.60 kg/(m2). GENERAL: pleasant, female in no apparent distress HEENT: Normocephalic, atraumatic, mucus membranes moist, and no lesions NECK: Supple, full range of motion, no adenopathy, and thyroid normal DERMATOLOGY: Normal, without lesions, non-icteric, and non-hirsute BREAST: soft, non-tender, symmetric, no dominant mass, normal nipple-areolar complex, no lymphadenopathy, and no nipple discharge CHEST: Normal inspiratory effort ABDOMEN: soft, non-tender, and no masses, large pannus PELVIC: external genitalia normal, normal Bartholin's glands, urethra, [place]'s glands, no vulvar lesions, no cervical lesions, good vaginal support, physiologic discharge present, normal appearing perineal body and perianal region BIMANUAL: uterus normal size, shape and consistency, no adnexal masses, and non-tender RECTOVAGINAL: deferred. NEURO: alert and oriented x3,exam grossly non-focal EXTREMITIES: normal ASSESSMENT/PLAN: 1) Health maintenance: Pap/HPV up to date. Mammogram ordered mixed incontinence, d/w her would likely benefit from wt loss offered wt management appointment, has struggeled w/ wt usp 2) Follow up one year or sooner as needed Fly Deluna MD [facility] 09-20-2022 History of Present illness Narrative Maritza is a 61 year old who presents for an annual gynecologic exam with c/o urinary leaking. Urgency at times. Leaks when she stands up at times. Doesn't usually get up at night. Drinks water and iced tea throughout the day. Postmenopausal: yes HRT use: No. Last Pap: 03/29/2021 normal HPV: 03/25/2021 negative History of abnormal pap: No Last mammogram: 2022 normal History of abnormal mammogram: No Sexually active: not often OB History T0 L3 SAB0 IAB0 Ectopic0 Multiple0 Live Births4 Docket Clerk History LMP: 11/17/2009, Ablation Age at Menarche: Age at First : Age at Menopause: Docket Clerk History Comments: Sexual Activity: Yes; Male Contraception: Tubal Ligation PAST MEDICAL HISTORY Diagnosis Date Anemia Asthma Back pain Depression Essential hypertension, benign Generalized osteoarthrosis, unspecified site Dr Hoang-davis Headache(784.0) Hyperlipidemia Impaired fasting glucose Nocturnal leg cramps spasms controlled with requip Obesity, unspecified Snoring PAST SURGICAL HISTORY Procedure Laterality Date ARTHRP ACETBLR/PROX FEM PROSTC AGRFT/ALGRFT 02/24/2011 right hip ARTHRP ACETBLR/PROX FEM PROSTC AGRFT/ALGRFT Left 01/2017 ARTHRP KNE CONDYLE&PLATU MEDIAL&LAT COMPARTMENTS 11/12 left knee replacement ARTHRP KNE CONDYLE&PLATU MEDIAL&LAT COMPARTMENTS 03/17/09 right Knee replacement[facility] 1998,1994 , low cervical CYST/MOLE REMOVAL 12/2019 LIG/TRNSXJ FLP TUBE ABDL/VAG APPR UNI/BI 1998 Tubal ligation NEUROPLASTY &/TRANSPOS MEDIAN NRV CARPAL TUNNE 2004 Carpal tunnel decomp RIGHT PAST SURGICAL HISTORY OF December 14, 2009 Diagnostic Hysteroscopy, Uterine Dilation and Curettage PAST SURGICAL HISTORY OF December 14, 2009 Novasure Endometrial Ablation UNSPECIFIED ORAL SURGERY PROCEDURE, BY REPORT 1979 jaw reconstruction FAMILY HISTORY Problem Relation Age of Onset Asthma Mother other (Fibromyalgia) Mother Emphysema Father Hypertension Father Coronary Artery Disease Father stent placement (late in life) other (sleep apnea) Father Hypertension Brother other (sleep apnea) Brother Cancer Son brain Colon Cancer No Family History SOCIAL HISTORY Social History Tobacco Use Smoking status: Former Packs/day: 1.00 Years: 15.00 Additional pack years: 0.00 Total pack years: 15.00 Types: Cigarettes Quit date: 12/07/1994 Years since quittin.8 Smokeless tobacco: Never Vaping Use Vaping Use: Never used Substance Use Topics Alcohol use: No Comment: rarely Drug use: No REVIEW OF SYSTEMS Abdomen: No abdominal pain, nausea, vomiting, diarrhea, or constipation. No bloating, early satiety, indigestion, or increased flatulence. Bladder: No dysuria, gross hematuria, urinary frequency, urinary urgency, or incontinence Breast: No breast lumps, nipple d/c, overlying skin changes, redness or skin retraction Allergies and current medication updated:Yes EXAM: BP 142/88 Ht 5' 8 (1.73m) Wt 359 lb (162.8kg) LMP 11/17/2009 BMI 54.60 kg/(m^2). GENERAL: pleasant, female in no apparent distress HEENT: Normocephalic, atraumatic, mucus membranes moist, and no lesions NECK: Supple, full range of motion, no adenopathy, and thyroid normal DERMATOLOGY: Normal, without lesions, non-icteric, and non-hirsute BREAST: soft, non-tender, symmetric, no dominant mass, normal nipple-areolar complex, no lymphadenopathy, and no nipple discharge CHEST: Normal inspiratory effort ABDOMEN: soft, non-tender, and no masses, large pannus PELVIC: external genitalia normal, normal Bartholin's glands, urethra, [place]'s glands, no vulvar lesions, no cervical lesions, good vaginal support, physiologic discharge present, normal appearing perineal body and perianal region BIMANUAL: uterus normal size, shape and consistency, no adnexal masses, and non-tender RECTOVAGINAL: deferred. NEURO: alert and oriented x3,exam grossly non-focal EXTREMITIES: normal ASSESSMENT/PLAN: 1) Health maintenance: Pap/HPV up to date. 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 Kari Hanks LPN Please schedule. Fly Deluna MD See pended order below and pt will then be assisted to schedule appointment. Kari Hanks LPN Patient called requesting a carlin screening to be placed,can be reached at [phone] Marta Us documented in this encounter [facility] 03-31-2022 Note HNO ID: [id number] Author: RT Memo(R) Service: ? Author Type: Technologist Type: Progress Notes Filed: 03/31/2022 11:07 AM Note Text: Radiology Service Progress Note PATIENT NAME: Maritza Mir DATE OF SERVICE: March 31, 2022 TIME: 11:07 AM PATIENT IDENTITY VERIFICATION COMPLETED USING TWO (2) IDENTIFIERS: Name and Date of confirmed by patient verbally. FALL SCREENING: Has the patient had 2 falls in the last year or 1 fall with injury or currently using an Ambulatory Assistive Device (Walker, Cane, Wheelchair, Crutches, etc.)? No PATIENT GENDER DATA: Female. status: : No status: NO. PATIENT RELEVANT IMPLANT DATA REVIEWED: Not Applicable RADIOLOGY DEPARTMENT: General X-ray: Exam(s) Completed: Chest X-Ray PERIPHERAL IV DATA: Not applicable SIGNED BY: RT Memo(R) March 31, 2022 11:[address] [facility] 03-31-2022 History of Present illness Narrative Radiology Service Progress Note PATIENT NAME: Maritza Mir DATE OF SERVICE: March 31, 2022 TIME: 11:07 AM PATIENT IDENTITY VERIFICATION COMPLETED USING TWO (2) IDENTIFIERS: Name and Date of confirmed by patient verbally. FALL SCREENING: Has the patient had 2 falls in the last year or 1 fall with injury or currently using an Ambulatory Assistive Device (Walker, Cane, Wheelchair, Crutches, etc.)? No PATIENT GENDER DATA: Female. status: : No status: NO. PATIENT RELEVANT IMPLANT DATA REVIEWED: Not Applicable RADIOLOGY DEPARTMENT: General X-ray: Exam(s) Completed: Chest X-Ray PERIPHERAL IV DATA: Not applicable SIGNED BY: RT Memo(R) March 31, 2022 11:07 AM documented in this encounter [facility] documented as of this encounter (statuses as of 08/18/2022) [facility]12-19-2017 History of Past illness Narrative* Problem Noted Date Diagnosed Date Resolved Date OA (osteoarthritis) 01/23/2017 01/25/20 17 Osteoarthritis of hip 01/23/20172016 Overview: S/p LTHR 01/23/17 documented as of this encounter (statuses as of 09/21/2022) [facility]12-19-2017 History of Past illness Narrative* Problem Noted Date Diagnosed Date Resolved Date OA (osteoarthritis) 01/23/2017 01/25/20 17 Osteoarthritis of hip 01/23/20172016 Overview: S/p LTHR 01/23/17 documented as of this encounter (statuses as of 09/30/2022) [facility] History of Past illness Narrative* Problem Noted Date Diagnosed Date Resolved Date OA (osteoarthritis) 01/23/2017 01/25/20 17 Osteoarthritis of hip 01/23/20172016 Overview: S/p LTHR 01/23/17 documented as of this encounter (statuses as of 12/10/2022) [facility] History of Past illness Narrative* Problem Noted Date Diagnosed Date Resolved Date OA (osteoarthritis) 01/23/2017 01/25/20 Osteoarthritis of hip 01/23/20172016 Overview: S/p LTHR 01/23/17 documented as of this encounter (statuses as of 12/10/2022) [facility] Diagnosis Encounter for screening mammogram for malignant neoplasm of breast- Primary Other screening mammogram documented in this encounter [facility] note* Diagnosis Encounter for gynecological examination (general) (routine) without abnormal findings- Primary Encounter for screening mammogram for breast cancer documented in this encounter [facility] note* Diagnosis Encounter for screening mammogram for malignant neoplasm of breast Other screening mammogram documented in this encounter [facility] for referral (narrative)* Diagnostic Procedure Only (Routine) - Pending Review Specialty Diagnoses / Procedures Referred By Nathalie bojorquez Referred To Contact [facility] Diagnoses Encounter for screening mammogram for malignant neoplasm of breast Procedures CARLIN SCREENING SCREENING MAMMOGRAPHY BI 2-VIEW BREAST INC Fly Damon MD [address] [place] [address] [facility] [address] [place] [address] Referral ID Status Reason Start Date Expiration Date Visits Requested Visits Authorized [id number] Pending Review Auto-Generat ed Referral 08/18/2022 09/16/2023 1 1 [facility] for referral (narrative)* Diagnostic Procedure Only (Routine) - Pending Review Specialty Diagnoses / Procedures Referred By Nathalie bojorquez Referred To Contact [facility] Diagnoses Encounter for gynecological examination (general) (routine) without abnormal findings Encounter for screening mammogram for breast cancer Procedures CARLIN SCREENING SCREENING MAMMOGRAPHY BI 2-VIEW BREAST INC Fly Damon MD [address] [place] [address] [facility] [address] [place] [address] Referral ID Status Reason Start Date Expiration Date Visits Requested Visits Authorized [id number] Pending Review Auto-Generat ed Referral 09/20/2022 10/20/2023 1 1 T [facility] for referral (narrative)* Diagnostic Procedure Only (Routine) - Closed Specialty Diagnoses / Procedures Referred By Contac t Referred To Contact [facility] Diagnoses Encounter for screening mammogram for malignant neoplasm of breast Procedures CARLIN SCREENING SCREENING MAMMOGRAPHY BI 2-VIEW BREAST INC Fly Damon MD [address] [place] [address] [facility] [address] [place] [address] Referral ID Status Reason Start Date Expiration Date V isits Requested Visits Authorized [id number] Closed Auto-Generate d Referral 08/18/2022 09/16/2023 1 1 [facility] for visit Narrative* Diagnostic Procedure Only (Routine) - Closed Specialty Diagnoses / Procedures Referred By Nathalie bojorquez Referred To Contact [facility] Diagnoses Encounter for screening mammogram for malignant neoplasm of breast Procedures CARLIN SCREENING SCREENING MAMMOGRAPHY BI 2-VIEW BREAST INC Fly Damon MD [address] [place] [address] [facility] [address] [place] [id number] Referral ID Status Reason Start Date Expiration Date V isits Requested Visits Authorized [id number] Closed Auto-Generate d Referral 08/18/2022 09/16/2023 1 1 [facility] Summary Purpose Family History No Family History Records FoundNo Family History Records Found Advance Directives No Advanced Directives Records FoundNo Advanced Directives Records Found Additional Source Comments INFORMATION SOURCE (unrecogn ized section and content) DATE CREATED AUTHOR AUTHOR'S ORGANIZ ATION 11/09/2022 [facility] Source Comments (unrecognize d section and content) In the event this informatio n is protected by the Federal Confidentiality of Alcohol and Drug Abuse Patient Records regulations: The Federal rules restrict any use of the information to criminally investigate or prosecute any alcohol or drug abuse patient.[facility] the event this information is protected by the Federal Confidentiality of Alcohol and Drug Abuse Patient Records regulations: The Federal rules restrict any use of the information to criminally investigate or prosecute any alcohol or drug abuse patient.[facility] the event this information is protected by the Federal Confidentiality of Alcohol and Drug Abuse Patient Records regulations: The Federal rules restrict any use of the information to criminally investigate or prosecute any alcohol or drug abuse patient.[facility] the event this information is protected by the Federal Confidentiality of Alcohol and Drug Abuse Patient Records regulations: The Federal rules restrict any use of the information to criminally investigate or prosecute any alcohol or drug abuse patient.[facility] the event this information is protected by the Federal Confidentiality of Alcohol and Drug Abuse Patient Records regulations: The Federal rules restrict any use of the information to criminally investigate or prosecute any alcohol or drug abuse patient.[facility] Reason for Visit (unrecogniz ed section and content) Reason Comments Yearly Exam Care Teams (unrecognized sec tion and content) Cutting Supervisor Relationship Specialty Start Date End Date Promise Mccray MD PCP - General Family Medicine 09/08/16 Cutting Supervisor Relationship Specialty Start Date End Date Promise Mccray MD PCP - General Family Medicine 09/08/16 Cutting Supervisor Relationship Specialty Start Date End Date Promise Mccray MD PCP - General Family Medicine 09/08/16 FOR RECORDS PERTAINING TO PATIENTS WHO ARE OR HAVE BEEN ENROLLED IN A CHEMICAL DEPENDENCY/SUBSTANCEABUSE PROGRAM, SOME INFORMATION MAY BE OMITTED. This clinical summary was aggregated from multiple sources. Caution should be exercised in using it in the provision of clinical care. This summary normalizes information from multiple sources, and as a consequence, information in this document may materially change the coding, format and clinical context of patient data. In addition, data may be omitted in some cases. CLINICAL DECISIONS SHOULD BE BASED ON THE PRIMARY CLINICAL RECORDS. [facility]. provides no warranty or guarantee of the accuracy or completeness of information in this document.
[2023-03-28 12:38] LABS: Hematocrit 31.4 % (37-47); Hemoglobin 9.5 g/dL (12.0-15.0); Mean Corp Hgb Conc 30.3 g/dL (32-36); Mean Corpuscular Hgb 26.6 pg (27.0-32.0); Mean Platelet Vol. 11.2 fl (6.2-12.0); Platelet Count 217 K/mm3 (150-450); RBC Distribution Width CV 15.2 % (11.6-14.6); RBC Distribution Width SD 48.9 fl (35.1-43.9); Red Blood Count 3.57 M/mm3 (4.2-5.4); White Blood Count 5.1 K/mm3 (4.4-11.0)
[2023-03-28 13:01] LABS: Hemoglobin A1c 6.5 % (3.8-5.6)
[2023-03-28 13:43] LABS: ALB/GLOB Ratio 1.1 RATIO (0.9-2.4); AST(SGOT) 17 U/L (15-37); Alanine Aminotransfer ALT/SGPT 17 U/L (13-56); Albumin, Serum 3.7 g/dL (3.2-5.0); Alkaline Phosphatase 68 U/L (45-117); Anion Gap 3 (5-15); BUN 26 mg/dL (7-18); BUN/Creat Ratio 16.7 RATIO (10-20); Chloride 106 mmol/L (98-107); Cholesterol 207 mg/dL (200); Creatinine, Serum 1.56 mg/dL (0.55-1.02); EST Glomerular Filtration Rate 36 mL/min (>60); Est Glom Filt Rate - Afr Amer 43 mL/min (>60); Globulin 3.5 g/dL (2.2-4.2); Glucose 105 mg/dL (74-106); High Density Lipoprotein 63 mg/dL; Potassium 4.3 mmol/L (3.5-5.1); Protein, Total 7.2 g/dL (6.4-8.2); Sodium Level 138 mmol/L (136-145); Triglycerides 94 mg/dL; Very Low Density Lipoprotein 19 mg/dL (5-40)
== END | disposition home or self-care (01) ==
LOC: MFPLAB 11:07
PROVIDERS: Nurse Practitioner Family; PCP Family Medicine; Visit Provider Family Medicine
DX: I10 Essential (primary) hypertension (principal); R73.01 Impaired fasting glucose
CPT/HCPCS: 36415; 80053; 80061; 83036; 85027

== ENCOUNTER → 2023-04-06 | Outpatient (CLI) | payer BC, SELFPAY ==
[2023-04-06 17:44] LABS: Absolute Neutrophil Count 5.5 X10^3/uL (2.0-7.7); Basophil# 0.05 X10^3/uL; Basophil% 0.6 % (0-1); Eosinophil# 0.25 X10^3/uL; Eosinophils% 2.9 % (0-5); Hematocrit 32.3 % (37-47); Lymphocyte % 22.9 % (19-41); Mean Corpuscular Hgb 27.2 pg (27.0-32.0); Mean Platelet Vol. 10.8 fl (6.2-12.0); Monocyte% 10.3 % (0-10); NRBC Flagged by Analyzer 0 % (0-5); Neutrophil # 5.47 X10^3/uL (2.7-7.7); Neutrophil % 62.7 % (47-70); Platelet Count 262 K/mm3 (150-450); RBC Distribution Width CV 15.4 % (11.6-14.6); RBC Distribution Width SD 49.7 fl (35.1-43.9); Red Blood Count 3.67 M/mm3 (4.2-5.4); White Blood Count 8.7 K/mm3 (4.4-11.0)
[2023-04-06 17:56] LABS: Vitamin B12 409 pg/mL (211-911)
[2023-04-06 18:02] LABS: Hemoglobin A1c 6.2 % (3.8-5.6)
[2023-04-06 18:12] LABS: AST(SGOT) 16 U/L (15-37); Alanine Aminotransfer ALT/SGPT 21 U/L (13-56); Albumin, Serum 3.8 g/dL (3.2-5.0); Alkaline Phosphatase 73 U/L (45-117); Anion Gap 5 (5-15); BUN 26 mg/dL (7-18); Calcium,Total 9.3 mg/dL (8.5-10.1); Chloride 104 mmol/L (98-107); Cholesterol 219 mg/dL (200); Creatinine, Serum 1.53 mg/dL (0.55-1.02); EST Glomerular Filtration Rate 37 mL/min (>60); Est Glom Filt Rate - Afr Amer 44 mL/min (>60); Ferritin 90 ng/mL (8-252); Globulin 3.7 g/dL (2.2-4.2); Glucose 91 mg/dL (74-106); High Density Lipoprotein 62 mg/dL; Iron 56 ug/dL (50-170); Iron Binding Capacity,Total 283 ug/dL (250-450); PERCENT IRON SATURATION 19.8 % (15.0-55.0); Potassium 4.7 mmol/L (3.5-5.1); Protein, Total 7.5 g/dL (6.4-8.2); Sodium Level 138 mmol/L (136-145); Thyroid Stim Hormone (TSH) 3.81 uIU/mL (0.358-3.74); Triglycerides 240 mg/dL; Very Low Density Lipoprotein 48 mg/dL (5-40)
[2023-04-06 18:24] LABS: Microalbumin,Random Urine 22.7 mg/L (NO RANGE EST.); Microalbumin:Creatinine Ratio 23.6 mg/g CRE (<30 mg/g CRE)
== END | disposition home or self-care (01) ==
LOC: MTLAB 16:27
PROVIDERS: PCP Family Medicine; Referring Provider Family Medicine; Visit Provider Family Medicine
DX: M79.89 Other specified soft tissue disorders (principal); D64.9 Anemia, unspecified; R73.01 Impaired fasting glucose; I10 Essential (primary) hypertension
CPT/HCPCS: 36415; 80053; 80061; 82043; 82570; 82607; 82728; 83036; 83540; 83550; 84443; 85025

== ENCOUNTER → 2023-05-09 | Outpatient (CLI) | payer BC, SELFPAY ==
[2023-05-09 16:05] LABS: Albumin, Serum 3.8 g/dL (3.2-5.0); BUN 24 mg/dL (7-18); BUN/Creat Ratio 17.4 RATIO (10-20); Calcium,Total 9.2 mg/dL (8.5-10.1); Chloride 108 mmol/L (98-107); Creatinine, Serum 1.38 mg/dL (0.55-1.02); EST Glomerular Filtration Rate 41 mL/min (>60); Est Glom Filt Rate - Afr Amer 50 mL/min (>60); Free T3 2.5 pg/mL (2.18-3.98); Glucose 91 mg/dL (74-106); Phosphorus 3.9 mg/dL (2.5-4.9); Potassium 4.7 mmol/L (3.5-5.1); Sodium Level 139 mmol/L (136-145)
[2023-05-13 04:07] LABS: Thyroglobulin Antibody 23.7 IU/mL (0.0-0.9); Thyroid Peroxidase AB < 9 IU/mL (0-34); Thyroid Stim Immunoglob <0.10 IU/L (0.00-0.55)
== END | disposition home or self-care (01) ==
LOC: MFPLAB 12:20
PROVIDERS: PCP Family Medicine; Visit Provider Family Medicine
DX: R79.89 Other specified abnormal findings of blood chemistry (principal); N18.30 Chronic kidney disease, stage 3 unspecified
CPT/HCPCS: 36415; 80069; 84439; 84445; 84481; 86376; 86800

== ENCOUNTER → 2023-07-16 | Outpatient (CLI) | payer BC, SELFPAY ==
--- NOTE | 2023-07-16 14:40 | RAD_ITS ---
STUDY: X-RAY - ABDOMEN/PELVIS REASON FOR EXAM: Female, 62 years old. Flank pain TECHNIQUE: 4 AP views COMPARISON: None. FINDINGS: Normal visualized lung bases. There is an abundance of fecal material throughout the colon. There is no demonstrated free abdominal air. The visualized liver, spleen and kidneys are grossly normal in size and morphology. Normal soft tissue structures. Bilateral hip replacements demonstrate anatomic alignment RAD/Abdomen Single View IMPRESSION: No acute abnormalities, retained stool Electronically Signed: Javy Mancini MD at 23:12 EDT ,
== END | disposition home or self-care (01) ==
PROVIDERS: PCP Family Medicine; Referring Provider Family Medicine; Visit Provider Family Medicine
DX: N23 Unspecified renal colic (principal)
CPT/HCPCS: 74018

== ENCOUNTER 2023-07-26 18:37 | Inpatient (IN) | payer BC, SELFPAY ==
[2023-07-26] VITALS (9 sets, daily range): BP systolic 125–161; BP diastolic 53–109; PULSE 62–87; RESP 16–20; TEMP 36.3–36.9; O2SAT 94–100; BMI 50.0; BMI 53.1
--- NOTE | 2023-07-26 18:54 | EX.ED.DYSGE1 ---
HPI <RAFFY Sanchez - Last Filed: 07/26/23 19:36> History of Present Illness Chief Complaint: Abd Pain Narrative Narrative: Patient's 62-year-old female with history of morbid obesity, asthma, arthritis, hypertension hyperlipidemia diabetes who presents to the emergency department with greater than 1 week of intermittent abdominal pain. She seen her PCP twice for this. At first they did a KUB which showed some constipation, she then went back and got a CAT scan today, heard of an emergent finding and then was told to come to the emergency department. Patient's primary care group called the emergency department to let the staff know that she is coming. Patient is complaining of abdominal pain, chills, nausea as well as decreased gas and bowel movement. PFS <RAFFY Sanchez - Last Filed: 07/26/23 19:36> [facility] Medical History (Updated 07/26/23 @ 19:[address] Dylan Juarez MD) Influenza A Morbid obesity Depression Restless leg Anemia Back pain Asthma Arthritis HTN (hypertension) Home Medications ?Medication ?Instructions ?Recorded ?Last Taken ?Type atenolol 50 mg tablet 50 mg PO BID 09/15/16 07/26/23 07:00 History ropinirole 0.5 mg tablet 0.5 mg PO QHS 09/15/16 Unknown History meloxicam 15 mg tablet 15 mg PO DAILY 08/16/17 Unknown History multivitamin 1 ea PO DAILY 08/16/17 Unknown History gabapentin 300 mg capsule 300 mg PO BID 06/18/19 Unknown History albuterol sulfate 90 mcg/actuation 1 puff inhalation PRN PRN Sob &/Or 11/13/19 Unknown History aerosol inhaler Wheezing furosemide 40 mg tablet 40 mg PO DAILY 12/11/19 Unknown History potassium chloride 20 mEq oral 20 meq PO DAILY 12/11/19 Unknown History packet dextromethorphan-guaifenesin 10 10 ml PO Q4H PRN cough #500 mL 03/02/23 Unknown Rx mg-100 mg/5 mL oral liquid brimonidine 0.2 % eye drops 1 drp RIGHT EYE BID 07/26/23 Unknown History dapagliflozin propanediol 5 mg 5 mg PO DAILY 07/26/23 Unknown History tablet (Farxiga) fluticasone furoate 200 1 ea inhalation DAILY 07/26/23 Unknown History mcg-vilanterol 25 mcg/dose inhalation powder (Breo Ellipta) latanoprost 0.005 % eye drops 1 drp ophthalmic (eye) DAILY 07/26/23 Unknown History levothyroxine 25 mcg tablet 25 mcg PO DAILY 07/26/23 Unknown History ondansetron HCl 4 mg tablet 4 mg PO TID PRN 07/26/23 Unknown History rosuvastatin 10 mg tablet 10 mg PO DAILY 07/26/23 Unknown History Allergy/AdvReac Type Severity Reaction Status Date / Time No Known Allergies Allergy Verified 07/26/23 18:38 Family History Mother Asthma Father Kidney disease Sleep apnea Heart disease Brother Hypertension Cancer brain Sleep apnea Surgical History Hx of excision of dermoid cyst History of section History of total hip replacement History of total knee replacement (TKR) History of carpal tunnel release Social History Smoking Status: Former smoker ROS <RAFFY Sanchez - Last Filed: 07/26/23 19:36> ROS ED ROS Narrative Constitutional: Negative for fever, chills, weight loss, weakness Eyes: Negative for vision loss, vision change, double vision ENT: Negative for any sore throat, ear pain, congestion Cardiovascular: Negative for any chest pain, tightness, palpitations Respiratory: Negative for any cough, sputum production, hemoptysis, dyspnea, dyspnea on exertion, orthopnea Gastrointestinal: Negative for any vomiting, diarrhea, blood in stool, blood in vomit. Positive for abdominal pain, nausea, constipation : Negative for any urinary frequency, dysuria, retention, blood in urine Muscle skeletal: Negative for any neck pain, back pain Neurological: Negative for any headache, syncope, dizziness Skin: Negative for any rashes, itching, abrasions, lacerations Psychiatric: Negative for any depression, anxiety, stress, suicidal ideation, homicidal ideation Hematologic: Negative for any excessive bruising, easy bleeding EXAM <RAFFY Sanchez - Last Filed: 07/26/23 19:36> Physical Exam Narrative Exam Narrative: Vital signs reviewed. HEET: Head normocephalic atraumatic, TMs clear bilaterally. Posterior pharynx is clear, moist mucous membranes. Nares clear bilaterally. Neck: Supple with no lymphadenopathy or tenderness. No signs of meningismus. Cardiac: Regular rate and rhythm no murmurs gallops or rubs, equal peripheral pulses bilaterally. Respiratory: Lungs clear to auscultation bilaterally. No chest tenderness. Abdomen: Soft,nondistended. No abdominal bruit or pulsatile masses. No hepatosplenomegaly. Patient does have some tenderness to the lower abdomen worse on the left lower abdomen. Hypoactive bowel sounds. No peritoneal signs. Extremities: No peripheral edema, no signs of gross trauma or deformity. Active full range of motion of all extremities. Neuro: Cranial nerves II through XII intact, no focal neurological deficits. Skin: Clean dry and intact with no rash, purpura, petechiae, vesicles or pustules. Backs/flank: No CVA tenderness, no midline spinal tenderness, no deformity. Psych: Normal mood and affect. No SI, HI or acute psychosis. Const Vital Signs: 07/26/23 18:39 07/26/23 19:39 Temperature 98.3 F 98.4 F Temperature Source Temporal Pulse Rate 75 87 Respiratory Rate 20 H 16 Blood Pressure 161/53 H 125/109 H Blood Pressure Mean 89 114 Pulse Ox 97 97 Oxygen Delivery Method Room Air <Dr. Dylan Juarez MD - Last Filed: 07/26/23 19:51> Physical Exam Const Vital Signs: 07/26/23 18:39 07/26/23 19:39 Temperature 98.3 F 98.4 F Temperature Source Temporal Pulse Rate 75 87 Respiratory Rate 20 H 16 Blood Pressure 161/53 H 125/109 H Blood Pressure Mean 89 114 Pulse Ox 97 97 Oxygen Delivery Method Room Air [facility] <RAFFY Sanchez - Last Filed: 07/26/23 19:36> [facility] Lab Data Labs: Laboratory Results - last 24 hr 07/26/23 19:00 WBC 14.2 H RBC 3.87 L Hgb 10.1 L Hct 33.3 L MCV 86.0 MCH 26.1 L MCHC 30.3 L RDW Std Deviation 44.8 H RDW Coeff of Michael 14.4 Plt Count 223 MPV 10.6 Immature Gran % (Auto) 0.400 Neut % (Auto) 80.7 H Lymph % (Auto) 7.9 L [place] % (Auto) 10.1 H Eos % (Auto) 0.6 Baso % (Auto) 0.3 Absolute Neuts (auto) 11.4 H Absolute Lymphs (auto) 1.12 Nucleated RBC % 0 Sodium 135 L Potassium 3.7 Chloride 105 Carbon Dioxide 27.0 Anion Gap 3 L BUN 16 Creatinine 1.29 H Estim Creat Clear Calc 71.01 Est GFR (MDRD) Af Amer 54 L Est GFR (MDRD) Non-Af 45 L BUN/Creatinine Ratio 12.4 Glucose 114 H Calcium 9.0 Total Bilirubin 0.60 AST 16 ALT 13 Alkaline Phosphatase 73 Total Protein 7.4 Albumin 3.5 Globulin 3.9 Albumin/Globulin Ratio 0.9 Lipase 21 Treatment and Re-Evaluation :: Differential diagnosis includes however is not limited to: Bowel obstruction, gastroenteritis, diverticulitis, appendicitis, Patient appears to be in mild discomfort secondary to lower abdominal pain. Patient has a low grade temp, does not look overly toxic. Presenting to the emergency department for abdominal pain for 1 week, with a report of abdominal CT today. The CT scan from today showed that the findings were consistent with a colonic obstruction proximal to the herniation and a large anterior pelvic wall hernia. There is stranding of the fat and fluid in the pelvic cavity raising question of incarceration and early ischemic changes. Cholelithiasis without evidence of cholecystitis. Secondary to this finding, I provided the patient with IV fluids, Zofran, morphine. Laboratory values with CBC CMP lipase as well as lactic acid. I will reach out to surgery to make them aware that the patient is here and for further instruction. Spoke with surgery, patient will go to surgery at this time. Patient's CBC shows a leukocytosis with a white blood count of 14, chemistry shows slight elevation creatinine 1.29 however this is baseline for the patient. Glucose 114, lipase was negative. Patient be started IV Zosyn, spoke with surgery who will take the patient. <Dr. Dylan Juarez MD - Last Filed: 07/26/23 19:51> [facility] Narrative Medical decision making narrative: I have personally performed a face to face assessment of the patient and have reviewed the WILL Note. I performed a substantive portion of the visit including all aspects of the following. My tate findings include: History is progressively worsening pain for couple weeks, nausea but no vomiting, decreased flatus and bowel movements over the course of the day and outpatient CT showing what appears to be a large ventral hernia with some incarcerated large bowel, also sent to ER emergently for surgical evaluation Exam is NAD. Abdominal obesity with tenderness in the pannus, normal bowel sounds present. Medical Decison Making area of tenderness correlates with the incarcerated hernia on CT. Discussed with surgery, taking 2 OR emergently. Other additions or changes: [None] Lab Data Labs: Laboratory Results - last 24 hr 07/26/23 19:00 WBC 14.2 H RBC 3.87 L Hgb 10.1 L Hct 33.3 L MCV 86.0 MCH 26.1 L MCHC 30.3 L RDW Std Deviation 44.8 H RDW Coeff of Michael 14.4 Plt Count 223 MPV 10.6 Immature Gran % (Auto) 0.400 Neut % (Auto) 80.7 H Lymph % (Auto) 7.9 L [place] % (Auto) 10.1 H Eos % (Auto) 0.6 Baso % (Auto) 0.3 Absolute Neuts (auto) 11.4 H Absolute Lymphs (auto) 1.12 Nucleated RBC % 0 Sodium 135 L Potassium 3.7 Chloride 105 Carbon Dioxide 27.0 Anion Gap 3 L BUN 16 Creatinine 1.29 H Estim Creat Clear Calc 71.01 Est GFR (MDRD) Af Amer 54 L Est GFR (MDRD) Non-Af 45 L BUN/Creatinine Ratio 12.4 Glucose 114 H Calcium 9.0 Total Bilirubin 0.60 AST 16 ALT 13 Alkaline Phosphatase 73 Total Protein 7.4 Albumin 3.5 Globulin 3.9 Albumin/Globulin Ratio 0.9 Lipase 21 Management Discussion w/another healthcare provider: Embedded Case Manager (Dr. Gunn surgery) and PCP Discharge Plan Dx/Rx/DC Orders Clinical Impression: Incarcerated hernia, Abdominal pain, Large bowel obstruction Disposition Disposition: Acute Care Hospital [facility] Discharge Date/Time: 07/26/23 19:40
[2023-07-26] MEDS: 0.9% Normal Saline (1000mL) 1,000 ML 999 ML IV (18:57)
[2023-07-26] MEDS: Ondansetron 4 MG/2 ML Vial IV ×2 (18:57→23:28)
[2023-07-26] MEDS: Morphine 4 MG/ML Syringe IV (18:58)
[2023-07-26 19:19] LABS: Absolute Lymphocyte Count 1.12 X10^3/uL (0.83-4.51); Absolute Neutrophil Count 11.4 X10^3/uL (2.0-7.7); Basophil# 0.04 X10^3/uL; Basophil% 0.3 % (0-1); Eosinophil# 0.09 X10^3/uL; Eosinophils% 0.6 % (0-5); Hematocrit 33.3 % (37-47); Hemoglobin 10.1 g/dL (12.0-15.0); Lymphocyte # 1.12 X10^3/ul (0.83-4.51); Lymphocyte % 7.9 % (19-41); Mean Corp Hgb Conc 30.3 g/dL (32-36); Mean Corpuscular Hgb 26.1 pg (27.0-32.0); Mean Platelet Vol. 10.6 fl (6.2-12.0); Monocyte# 1.43 X10^3/uL; Monocyte% 10.1 % (0-10); NRBC Flagged by Analyzer 0 % (0-5); Neutrophil # 11.43 X10^3/uL (2.7-7.7); Neutrophil % 80.7 % (47-70); Platelet Count 223 K/mm3 (150-450); RBC Distribution Width CV 14.4 % (11.6-14.6); RBC Distribution Width SD 44.8 fl (35.1-43.9); Red Blood Count 3.87 M/mm3 (4.2-5.4); White Blood Count 14.2 K/mm3 (4.4-11.0)
--- NOTE | 2023-07-26 19:25 | EKG12_ITS ---
Test Reason : PRE-OP Blood Pressure : / mmHG Vent. Rate : 071 BPM Atrial Rate : 071 BPM P-R Int : 150 ms QRS Dur : 092 ms QT Int : 384 ms P-R-T Axes : 066 061 031 degrees QTc Int : 417 ms Normal sinus rhythm Normal ECG Confirmed by Kiran High ([id number]), publication editor MAY JUNIOR ([id number]) on 07/30/2023 9:00:12 AM Referred By: Confirmed By:Kiran High
[2023-07-26 19:26] LABS: ALB/GLOB Ratio 0.9 RATIO (0.9-2.4); AST(SGOT) 16 U/L (15-37); Alanine Aminotransfer ALT/SGPT 13 U/L (13-56); Albumin, Serum 3.5 g/dL (3.2-5.0); Alkaline Phosphatase 73 U/L (45-117); Anion Gap 3 (5-15); BUN 16 mg/dL (7-18); BUN/Creat Ratio 12.4 RATIO (10-20); Chloride 105 mmol/L (98-107); Creatinine, Serum 1.29 mg/dL (0.55-1.02); EST Glomerular Filtration Rate 45 mL/min (>60); Est Glom Filt Rate - Afr Amer 54 mL/min (>60); Estimated Creatinine Clearance 71.01 ml/min; Globulin 3.9 g/dL (2.2-4.2); Glucose 114 mg/dL (74-106); Lipase 21 U/L (13-75); Potassium 3.7 mmol/L (3.5-5.1); Protein, Total 7.4 g/dL (6.4-8.2); Sodium Level 135 mmol/L (136-145)
[2023-07-26] MEDS: Piperacil/Tazobactam 3.375 GM in 0.9% Normal Saline (50mL MB+) 50 ML IV (19:36)
--- NOTE | 2023-07-26 19:46 | HP.PCM.SX_ITS ---
HPI - General HPI Narrative COLT CLANCY, is a 62 F who presents With worsening abdominal pain. Patient denies nausea or vomiting. Pain is in her lower abdomen. Patient reports that the pain has been especially worse in the last 2 days with more cramping. She has a history of . [facility] Medical History (Updated 07/26/23 @ 19:[address] Dylan Juarez MD) Influenza A Morbid obesity Depression Restless leg Anemia Back pain Asthma Arthritis HTN (hypertension) Home Medications ?Medication ?Instructions ?Recorded ?Last Taken ?Type atenolol 50 mg tablet 50 mg PO BID 09/15/16 07/26/23 07:00 History ropinirole 0.5 mg tablet 0.5 mg PO QHS 09/15/16 Unknown History meloxicam 15 mg tablet 15 mg PO DAILY 08/16/17 Unknown History multivitamin 1 ea PO DAILY 08/16/17 Unknown History gabapentin 300 mg capsule 300 mg PO BID 06/18/19 Unknown History albuterol sulfate 90 mcg/actuation 1 puff inhalation PRN PRN Sob &/Or 11/13/19 Unknown History aerosol inhaler Wheezing furosemide 40 mg tablet 40 mg PO DAILY 12/11/19 Unknown History potassium chloride 20 mEq oral 20 meq PO DAILY 12/11/19 Unknown History packet dextromethorphan-guaifenesin 10 10 ml PO Q4H PRN cough #500 mL 03/02/23 Unknown Rx mg-100 mg/5 mL oral liquid brimonidine 0.2 % eye drops 1 drp RIGHT EYE BID 07/26/23 Unknown History budesonide 0.5 mg/2 mL suspension 1 inhalation BID 07/26/23 Unknown History for nebulization dapagliflozin propanediol 5 mg 5 mg PO DAILY 07/26/23 Unknown History tablet (Farxiga) fluticasone furoate 200 1 ea inhalation DAILY 07/26/23 Unknown History mcg-vilanterol 25 mcg/dose inhalation powder (Breo Ellipta) latanoprost 0.005 % eye drops 1 drp ophthalmic (eye) DAILY 07/26/23 Unknown History levothyroxine 25 mcg tablet 25 mcg PO DAILY 07/26/23 Unknown History ondansetron HCl 4 mg tablet 4 mg PO TID PRN 07/26/23 Unknown History rosuvastatin 10 mg tablet 10 mg PO DAILY 06/20/24 Unknown History Allergy/AdvReac Type Severity Reaction Status Date / Time No Known Allergies Allergy Verified 07/26/23 18:38 Family History Mother Asthma Father Kidney disease Sleep apnea Heart disease Brother Hypertension Cancer brain Sleep apnea Surgical History Hx of excision of dermoid cyst History of section History of total hip replacement History of total knee replacement (TKR) History of carpal tunnel release Social History Smoking Status: Former smoker ROS Constitutional Constitutional: Reports anorexia and fever(s); Denies chills or fatigue Eyes Eyes: Denies blurry vision ENT HEENT: Denies abnormal hearing Cardiovascular Cardiovascular: Denies chest pain Respiratory/Chest Respiratory/Chest: Denies cough or dyspnea Gastrointestinal Gastrointestinal: Reports abdominal pain; Denies constipation, diarrhea, nausea or vomiting Genitourinary Genitourinary: Denies change in urinary stream Musculoskeletal Musculoskeletal: Denies abnormal gait Neurologic Neurologic: Denies abnormal gait Psychiatric Psychiatric: Denies anxiety Endocrine Endocrinology: Denies flushing or heat intolerance Hematologic/Lymphatic Hematologic/Lymphatic: Denies easy bleeding Vital Signs Vital Signs Vital Signs: 07/26/23 18:39 07/26/23 19:39 Temperature 98.3 F 98.4 F Temperature Source Temporal Pulse Rate 75 87 Respiratory Rate 20 H 16 Blood Pressure 161/53 H 125/109 H Blood Pressure Mean 89 114 Pulse Ox 97 97 Oxygen Delivery Method Room Air Weight Weight: 330 lb Body Mass Index (BMI) 50.0 Physical Exam Const oriented x3 and no apparent distress Resp normal respiratory effort Cardio regular rate and regular rhythm GI soft to palpation GI Narrative: Hernia not reducible Palpation: tender periumbilical and suprapubic Extremity normal to inspection Results Lab / Micro Data 07/26/23 19:00 07/26/23 19:00 Labs: Laboratory Results - last 24 hr 07/26/23 19:00: WBC 14.2 H, RBC 3.87 L, Hgb 10.1 L, Hct 33.3 L, MCV 86.0, MCH 26.1 L, MCHC 30.3 L, RDW Std Deviation 44.8 H, RDW Coeff of Michael 14.4, Plt Count 223, MPV 10.6, Immature Gran % (Auto) 0.400, Neut % (Auto) 80.7 H, Lymph % (Auto) 7.9 L, [place] % (Auto) 10.1 H, Eos % (Auto) 0.6, Baso % (Auto) 0.3, A bsolute Neuts (auto) 11.4 H, Absolute Lymphs (auto) 1.12, Nucleated RBC % 0, S odium 135 L, Potassium 3.7, Chloride 105, Carbon Dioxide 27.0, Anion Gap 3 L, BUN 16, Creatinine 1.29 H, Estim Creat Clear Calc 71.01, Est GFR (MDRD) Af Amer 54 L, Est GFR (MDRD) Non-Af 45 L, BUN/Creatinine Ratio 12.4, Glucose 114 H, Calcium 9.0, Total Bilirubin 0.60, AST 16, ALT 13, Alkaline Phosphatase 73, Total Protein 7.4, Albumin 3.5, Globulin 3.9, Albumin/Globulin Ratio 0.9, Lipase 21 Assessment & Plan Assessment/Plan (1) Large bowel obstruction: (2) Incarcerated hernia: PLAN: Plan The patient has been having abdominal pain and outpatient CT was ordered which showed colonic obstruction from a ventral hernia. I discussed the patient's CAT scan with her.I discussed surgery. There is some stranding around the sigmoid colon concerning for ischemia and that she does have obstruction. I discussed that there was concern for ischemia of the colon. I recommended exploratory laparoscopy to evaluate the colon for ischemia and then to try to reduce the contents and close the hernia with suture. I discussed the possibility of converting to open if necessary as well as performing resection if there is ischemia with end colostomy. I discussed the risks of the surgery such as bleeding, infection, injury to other organs, need for further surgery or transfer, need for colostomy. Patient is at high risk due to her weight and BMI. Lg Gunn MD Pager: [facility] [address] [place] [address] [address] [place] [address] Office:
[2023-07-26] MEDS: 0.9% Normal Saline (1000mL) 1,000 ML 15 ML IV (19:55)
--- NOTE | 2023-07-26 19:58 | PCM.PRE.AN2 ---
ASA Classification* ASA Classification ASA Classification: 3 and E Assessment & Plan Anesthesia* Anesthesia Assessment Anesthesia Assessment: Discussed sedation and/or anesthesia options, risks, benefits, and alternatives with patient/parents/legal guardian/POA. Questions invited. The patient/parents/legal guardian/POA seems to understand and agrees to proceed with anesthesia plan. Reviewed the physical assessment, medical history, allergy history and patient home medications list prior to surgery/procedure/anesthetic and documented any changes. Performed airway and anesthesia risk assessments. Anesthesia Type Anesthesia Type: General (see written pre anesthesia record for complete assessment) Pre-Assessment Diagnosis/Proposed Procedure Planned Operative Procedure(s): exp lap Anesthesia History Anesthesia History - testing manager: Anesthesia History - testing manager Hx Hospitalization Yes 12/11/19 08:44 Any Problems With Anesthesia No 12/11/19 08:44 Cholinesterase deficiency No 12/11/19 08:44 You/Your Family Experience No 12/11/19 08:44 fever (hyperthermia) with Relationship Recent Exposure to Contagious No 12/18/19 12:20 Disease Does patient have nerve No 12/11/19 08:44 stimulator Patient instructed to have device shut off --Does patient have Pacemaker or ICD? When Was Last Pacemaker Check QUESTION #4 FULL TEXT: You/Your Family Experience fever (hyperthermia) with Anesthesia Last Oral Intake Last Oral intake: Last Oral Intake NPO since Meds taken in AM with sips of water? Meds patient instructed to take am of surgery PONV PONV - testing manager: PONV - testing manager Female HX of Motion Sickness HX of N/V After Surgery Non-Smoker Duration of Surgery greater than 60 minutes Number of Risk Factors PONV Score Height & Weight Height & Weight: Anesthesia: Height & Weight Height 5 ft 8.11 in 07/26/23 18:39 Weight: 149.685 kg 07/26/23 18:39 Body Mass Index (BMI) 50.0 07/26/23 18:39 Respiratory Assessment Respiratory Assessment - testing manager: Respiratory Tract Infection Hx - testing manager Hx Respiratory Tract Infection No 12/11/19 08:44 STOP Sleep Apnea STOP Sleep Apnea - testing manager: STOP Sleep Apnea - testing manager Hx Hypertension Yes: controlled with med 12/28/19 14:47 Hx Sleep Apnea No 12/28/19 14:47 CPAP BIPAP Do you snore loudly (louder than talking or can be heard Do you often feel tired/ fatigued/ sleepy during daytime? Has anyone observed you stop breathing during sleep? STOP Results QUESTION #5 FULL TEXT : Do you snore loudly (louder than talking or can be heard through closed doors)? 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 Specify any problems Hx of Preganancy in last 3 Months Nurse Filling Out Transfusion & Questions: Date: Time: Patient unable to answer at this time (ie. confused, unrespo /Reproduction History /Reproductive History - testing manager: /Reproductive Hx- testing manager Hx Now Gestational Age (in weeks): EDC: Hx Hx Para Hx Section SAB Active Medications Active Medications: Current Medications Generic Name Dose Route Start Last Admin Trade Name Freq PRN Reason Stop Dose Admin Sodium Chloride 1,000 mls @ 15 mls/hr 07/26/23 19:55 07/26/23 19:55 IV 15 mls/hr .Q48H VEGA Administration Anesthesia Focused Assessment* Temperature: 98.4 F Pulse Rate: 87 Blood Pressure: 125/109 Respiratory Rate: 16 Pulse Ox: 97 Airway Assessment Mouth opens: >3 cm Mallampati Score: III Focused Labs Anesthesia Preop lab: CBC WBC 14.2 K/mm3 (4.4-11.0) H 07/26/23 19:00 RBC 3.87 M/mm3 (4.2-5.4) L 07/26/23 19:00 Hgb 10.1 g/dL (12.0-15.0) L 07/26/23 19:00 Hct 33.3 % (37-47) L 07/26/23 19:00 Plt Count 223 K/mm3 (150-450) 07/26/23 19:00 CHEMISTRY Potassium 3.7 mmol/L (3.5-5.1) 07/26/23 19:00 Sodium 135 mmol/L (136-145) L 07/26/23 19:00 Phosphorus 3.9 mg/dL (2.5-4.9) 05/09/23 12:21 BUN 16 mg/dL (7-18) 07/26/23 19:00 Creatinine 1.29 mg/dL (0.55-1.02) H 07/26/23 19:00 Glucose 114 mg/dL (74-106) H 07/26/23 19:00 TSH 3.81 uIU/mL (0.358-3.74) H 04/06/23 16:30 COAG Review of Systems (Anesthesia) ROS Narrative System reviewed and no additional complaints, except as documented. [facility] Medical History Influenza A Morbid obesity Depression Restless leg Anemia Back pain Asthma Arthritis HTN (hypertension) Home Medications ?Medication ?Instructions ?Recorded ?Last Taken ?Type atenolol 50 mg tablet 50 mg PO BID 09/15/16 07/26/23 07:00 History ropinirole 0.5 mg tablet 0.5 mg PO QHS 09/15/16 Unknown History meloxicam 15 mg tablet 15 mg PO DAILY 08/16/17 Unknown History multivitamin 1 ea PO DAILY 08/16/17 Unknown History gabapentin 300 mg capsule 300 mg PO BID 06/18/19 Unknown History albuterol sulfate 90 mcg/actuation 1 puff inhalation PRN PRN Sob &/Or 11/13/19 Unknown History aerosol inhaler Wheezing furosemide 40 mg tablet 40 mg PO DAILY 12/11/19 Unknown History potassium chloride 20 mEq oral 20 meq PO DAILY 12/11/19 Unknown History packet dextromethorphan-guaifenesin 10 10 ml PO Q4H PRN cough #500 mL 03/02/23 Unknown Rx mg-100 mg/5 mL oral liquid brimonidine 0.2 % eye drops 1 drp RIGHT EYE BID 07/26/23 Unknown History budesonide 0.5 mg/2 mL suspension 1 inhalation BID 07/26/23 Unknown History for nebulization dapagliflozin propanediol 5 mg 5 mg PO DAILY 07/26/23 Unknown History tablet (Farxiga) fluticasone furoate 200 1 ea inhalation DAILY 07/26/23 Unknown History mcg-vilanterol 25 mcg/dose inhalation powder (Breo Ellipta) latanoprost 0.005 % eye drops 1 drp ophthalmic (eye) DAILY 07/26/23 Unknown History levothyroxine 25 mcg tablet 25 mcg PO DAILY 07/26/23 Unknown History ondansetron HCl 4 mg tablet 4 mg PO TID PRN 07/26/23 Unknown History rosuvastatin 10 mg tablet 10 mg PO DAILY 07/26/23 Unknown History Allergy/AdvReac Type Severity Reaction Status Date / Time No Known Allergies Allergy Verified 07/26/23 18:38 Family History Mother Asthma Father Kidney disease Sleep apnea Heart disease Brother Hypertension Cancer brain Sleep apnea Surgical History Hx of excision of dermoid cyst History of section History of total hip replacement History of total knee replacement (TKR) History of carpal tunnel release Social History Smoking Status: Former smoker
[2023-07-26 20:04] LABS: Lactic Acid 0.9 mmol/L (0.4-1.9)
--- NOTE | 2023-07-26 20:20 | HERN_PTH ---
PATIENT: COLT CLANCY LOC: MS3 U#:[id number] AGE/SX: 62/F ROOM: PA323 RE07/26/[address]: Dr. Lg Gunn MD : 1960 BED: 1 DIS: 07/31/2023 SPEC #: [id number] RECD: 07/27/23 08:09 STATUS: DAWNA SAMANIEGOMisty #: [id number] JEANNE: 07/26/23 20:[address]: Lg Gunn DEPT: SURGICAL PATHOLOGY RECD BY: Rossi Prince ENTERED: 07/27/23 10:55 SP TYPE: Hernia OTHR DR: Marianela Sandoval MD Tissues: HERNIA Procedures: Surgery Specimen Level II HEADER OPERATION: Exploratory, laparoscopy, ventral hernia repair PRE-OP DIAGNOSIS: Large bowel obstruction, incarcerated hernia TISSUE SUBMITTED: Hernia sac MICROSCOPIC DIAGNOSIS Hernia sac, ventral hernia repair: Pieces of fibroadipose and fibroconnective tissue, consistent with hernia sac with acute and chronic inflammation, old hemorrhage and reactive changes. / 07/30/2023 MICROSCOPIC DESCRIPTION Slides are reviewed. GROSS DESCRIPTION Received in fixative is one container labeled with the patient's name and designated Hernia sac. The specimen consists of multiple irregular fragments of yellow-ramírez fatty tissue measuring in aggregate 15.0 x 11.0 x 2.5cm. Serial sections do not reveal mass lesions. Search Optimization Analyst sections are submitted in two cassettes. JOSE/ 07/27/2023 TC:5 CPT:01142
[2023-07-26] MEDS: Bupivacaine Mpf 0.5% 30 ML VIAL (21:45)
--- NOTE | 2023-07-26 22:15 | PCM.POSTANE2 ---
Anesthesia Postop Eval I Sum Postop Eval Completion status Anesthesia document: Postop Eval 1 completed: Yes Anesthesia Postop Eval I Summary Anesthesia Postop Eval I Summary: Anesthesia Postop Eval I: Assessment Summary Airway patent y Spontaneous unlabored y respirations Mental status nausea n Vomiting n Anesthesia Postop Eval I: Fluid Summary Crystalloid volume administer 1000 (ml) Colloids volume administered ( ml) Blood Product volume administered (ml) Total IV fluid infused 1000 Anesthesia Postop Eval I: Summary Notes Anesthesia Complication n Anesthesia Complication n Comment: Post-operative progress note Anesthesia: Postop Eval II Evaluation Mental status: Awake Pain Level: 0 nausea: No Vomiting: No
--- NOTE | 2023-07-26 22:17 | PCM.OPRPT ---
Report of Operation Date of Procedure: 07/26/23 Pre-Operative Diagnosis: Incarcerated ventral hernia over 3 cm Post-Operative Diagnosis: Same Surgery/Procedure Performed:: Exploratory laparoscopy converted to open with repair of ventral hernia Type of Anesthesia: General/Regional Specimen's removed: None Estimated Blood Loss (mL): 50 Description of Procedure: Patient was brought back to the operating room and general anesthesia was induced. A Posadas catheter was placed. The abdomen was then prepped and draped in usual sterile fashion. Next an incision was made in the right upper quadrant and Visiport technique was used to enter the abdomen and then it was insufflated to 15 mmHg. The abdomen was then inspected and it appeared to be that the colon was incarcerated and not able to be reduced. Next a midline incision was marked over the hernia in the lower abdomen and then incised. The hernia sac was dissected from the surrounding attachments using electrocautery dissection. I was still unable to manually reduce the hernia. The hernia sac was then opened sharply which revealed some ascites and a viable appearing sigmoid colon. After opening the fascia superiorly I was able to reduce the contents. Next the hernia sac was resected circumferentially. Next the hernia was reapproximated with interrupted 0 Prolene sutures in [id number] fashion. Once the hernia was closed the abdomen was reinsufflated and the camera was placed. In the right lower quadrant a 5 mm port was placed. The bowel was then run and the proximal sigmoid colon was inspected. It appeared to be edematous but there was no sign of ischemia or necrosis. There appeared to be a lot of stool backed up. There was no bleeding and there was good hemostasis. The abdomen was irrigated and suctioned dry. The camera and the ports were removed and the abdomen was allowed to desufflate. Next a 15 [place] round drain was placed through the right lower quadrant port site and into the subcutaneous tissue and into the hernia cavity. It was sutured to the skin using 3-0 nylon suture. Next the subcutaneous cavity was irrigated and suctioned dry. After the drain was in place the dermis was closed with interrupted 3-0 Vicryl sutures. Next the skin was stapled closed. Dressings were applied and the drain was placed to bulb suction. Patient was awoken and taken to PACU in stable condition. Grafts/Implants Used: No mesh used Admit VTE Documentation VTE Mechan Device Prophylaxis: SCD's
--- NOTE | 2023-07-26 22:17 | PCM.POST.ANE ---
Anesthesia: Postop Eval I Current Vital Signs Temperature: 98 F Pulse Rate: 68 Blood Pressure: 139/54 Respiratory Rate: 17 Pulse Ox: 100 Oxygen Delivery Method: Simple Mask (8sfm) Assessment Airway patent: Yes Spontaneous unlabored respirations: Yes Mental status: Awake nausea: No Vomiting: No Anesthesia Complication: No Fluid Hydration Crystalloid volume administer (ml): 1,000 Total IV fluid infused: 1,000 Progress Note Anesthesia document: Postop Eval 1 completed: Yes
[2023-07-26] MEDS: 0.9% Normal Saline (1000mL) 1,000 ML 100 ML IV (22:57)
--- NOTE | 2023-07-26 23:08 | POSTOPAN2_ITS ---
Anesthesia Postop Eval I Sum Postop Eval Completion status Anesthesia document: Postop Eval 1 completed: Yes Anesthesia Postop Eval I Summary Anesthesia Postop Eval I Summary: Anesthesia Postop Eval I: Assessment Summary Airway patent Yes 07/26/23 22:19 THERMOSTAT MACHINE TENDER.[email or web address] Spontaneous unlabored Yes 07/26/23 22:19 THERMOSTAT MACHINE TENDER.[email or web address] respirations Mental status Awake 07/26/23 22:19 THERMOSTAT MACHINE TENDER.[email or web address] nausea No 07/26/23 22:19 THERMOSTAT MACHINE TENDER.JCOTE Vomiting No 07/26/23 22:19 THERMOSTAT MACHINE TENDER.[email or web address] Anesthesia Postop Eval I: Fluid Summary Crystalloid volume administer 1,000 07/26/23 22:19 THERMOSTAT MACHINE TENDER.JCOTE (ml) Colloids volume administered ( ml) Blood Product volume administered (ml) Total IV fluid infused 1,000 07/26/23 22:19 THERMOSTAT MACHINE TENDER.[email or web address] Anesthesia Postop Eval I: Summary Notes Anesthesia Complication No 07/26/23 22:19 THERMOSTAT MACHINE TENDER.JCOTE Anesthesia Complication Comment: Post-operative progress note Anesthesia: Postop Eval II Evaluation Mental status: Awake Pain Level: 0 nausea: No Vomiting: No Complications Anesthesia Complication: No
--- NOTE | 2023-07-26 23:08 | PCM.POSTANE2 ---
Anesthesia Postop Eval I Sum Postop Eval Completion status Anesthesia document: Postop Eval 1 completed: Yes Anesthesia Postop Eval I Summary Anesthesia Postop Eval I Summary: Anesthesia Postop Eval I: Assessment Summary Airway patent Yes 07/26/23 22:19 REFRIGERATOR [email or web address] Spontaneous unlabored Yes 07/26/23 22:19 REFRIGERATOR GLAZIER.[email or web address] respirations Mental status Awake 07/26/23 22:19 REFRIGERATOR [email or web address].[email or web address] nausea No 07/26/23 22:19 REFRIGERATOR GLAZIER.JCOTE Vomiting No 07/26/23 22:19 REFRIGERATOR GLAZIER.[email or web address] Anesthesia Postop Eval I: Fluid Summary Crystalloid volume administer 1,000 07/26/23 22:19 REFRIGERATOR GLAZIER.[email or web address] (ml) Colloids volume administered ( ml) Blood Product volume administered (ml) Total IV fluid infused 1,000 07/26/23 22:19 REFRIGERATOR GLAZIER.JCOTE Anesthesia Postop Eval I: Summary Notes Anesthesia Complication No 07/26/23 22:19 REFRIGERATOR [email or web address].[email or web address] Anesthesia Complication Comment: Post-operative progress note Anesthesia: Postop Eval II Evaluation Mental status: Awake Pain Level: 0 nausea: No Vomiting: No Complications Anesthesia Complication: No
[2023-07-26] MEDS: Morphine 2 MG/ML Syringe IV (23:28)
[2023-07-27] VITALS (14 sets, daily range): BP systolic 117–145; BP diastolic 58–74; PULSE 65–85; RESP 16–20; TEMP 36.6–37.9; O2SAT 88–100
[2023-07-27] MEDS: oxyCODONE 5 MG Tablet PO ×4 (03:06→19:56)
[2023-07-27] MEDS: Levothyroxine 25 MCG TABLET PO (06:35)
[2023-07-27] MEDS: Piperacil/Tazobactam 3.375 GM in 0.9% Normal Saline (50mL MB+) 50 ML IV ×3 (06:35→21:59)
[2023-07-27] MEDS: Albuterol 2.5 MG/3 ML VIAL.NEB. INHALATION ×3 (07:14→19:15)
[2023-07-27] MEDS: Budesonide Respules 0.5 MG/2 ML AMPUL.NEB. INHALATION ×2 (07:14→19:15)
[2023-07-27 07:40] LABS: Absolute Neutrophil Count 10.3 X10^3/uL (2.0-7.7); Basophil# 0.03 X10^3/uL; Basophil% 0.2 % (0-1); Eosinophil# 0.01 X10^3/uL; Eosinophils% 0.1 % (0-5); Hematocrit 29.9 % (37-47); Hemoglobin 9.1 g/dL (12.0-15.0); Lymphocyte % 11.3 % (19-41); Mean Corp Hgb Conc 30.4 g/dL (32-36); Mean Corpuscular Hgb 26.7 pg (27.0-32.0); Mean Corpuscular Volume 87.7 fL (81-99); Mean Platelet Vol. 10.8 fl (6.2-12.0); Monocyte# 1.41 X10^3/uL; Monocyte% 10.6 % (0-10); NRBC Flagged by Analyzer 0 % (0-5); Neutrophil # 10.32 X10^3/uL (2.7-7.7); Neutrophil % 77.4 % (47-70); Platelet Count 215 K/mm3 (150-450); RBC Distribution Width CV 14.5 % (11.6-14.6); RBC Distribution Width SD 45.8 fl (35.1-43.9); Red Blood Count 3.41 M/mm3 (4.2-5.4); White Blood Count 13.3 K/mm3 (4.4-11.0)
[2023-07-27 07:58] LABS: Anion Gap 6 (5-15); BUN 15 mg/dL (7-18); BUN/Creat Ratio 10.9 RATIO (10-20); Calcium,Total 8.2 mg/dL (8.5-10.1); Chloride 106 mmol/L (98-107); Creatinine, Serum 1.37 mg/dL (0.55-1.02); EST Glomerular Filtration Rate 42 mL/min (>60); Est Glom Filt Rate - Afr Amer 50 mL/min (>60); Estimated Creatinine Clearance 69.29 ml/min; Glucose 107 mg/dL (74-106); Sodium Level 137 mmol/L (136-145)
--- NOTE | 2023-07-27 08:55 | PN.SURG_ITS ---
Subjective Subjective Patient reports she is comfortable this morning. She is not passing flatus yet. Objective Data Objective Data Vital Signs: Vital Signs Temp Pulse Resp BP Pulse Ox O2 Del Method O2 Flow Rate 99.5 F H 81 16 145/65 H 98 Room Air 2 07/27/23 08:16 07/27/23 08:16 07/27/23 08:16 07/27/23 08:16 07/27/23 08:16 07/27/23 08:16 07/27/23 06:31 Oxygen Flow Rate (L/min) 2 Oxygen Delivery Method Room Air Weight: 349 lb 10.45 oz Body Mass Index (BMI) 53.1 Intake & Output: Intake and Output for Last 24 Hours 07/25/23 07/26/23 07/27/23 23:59 23:59 23:59 Intake Total 1098.75 / 1098.75 100 / 100 Output Total 358 / 358 490 / 490 Balance 740.75 / 740.75 -390 / -390 Lab / Micro Data 07/27/23 07:16 07/27/23 07:16 Labs: Laboratory Results - last 24 hr 07/26/23 19:00: WBC 14.2 H, RBC 3.87 L, Hgb 10.1 L, Hct 33.3 L, MCV 86.0, MCH 26.1 L, MCHC 30.3 L, RDW Std Deviation 44.8 H, RDW Coeff of Michael 14.4, Plt Count 223, MPV 10.6, Immature Gran % (Auto) 0.400, Neut % (Auto) 80.7 H, Lymph % (Auto) 7.9 L, [place] % (Auto) 10.1 H, Eos % (Auto) 0.6, Baso % (Auto) 0.3, A bsolute Neuts (auto) 11.4 H, Absolute Lymphs (auto) 1.12, Nucleated RBC % 0, S odium 135 L, Potassium 3.7, Chloride 105, Carbon Dioxide 27.0, Anion Gap 3 L, BUN 16, Creatinine 1.29 H, Estim Creat Clear Calc 71.01, Est GFR (MDRD) Af Amer 54 L, Est GFR (MDRD) Non-Af 45 L, BUN/Creatinine Ratio 12.4, Glucose 114 H, Lactic Acid 0.9, Calcium 9.0, Total Bilirubin 0.60, AST 16, ALT 13, Alkaline Phosphatase 73, Total Protein 7.4, Albumin 3.5, Globulin 3.9, Albumin/Globulin Ratio 0.9, Lipase 21 07/27/23 07:16: WBC 13.3 H, RBC 3.41 L, Hgb 9.1 L, Hct 29.9 L, MCV 87.7, MCH 26.7 L, MCHC 30.4 L, RDW Std Deviation 45.8 H, RDW Coeff of Michael 14.5, Plt Count 215, MPV 10.8, Immature Gran % (Auto) 0.400, Neut % (Auto) 77.4 H, Lymph % (Auto) 11.3 L, [place] % (Auto) 10.6 H, Eos % (Auto) 0.1, Baso % (Auto) 0.2, A bsolute Neuts (auto) 10.3 H, Absolute Lymphs (auto) 1.50, Nucleated RBC % 0, Sodium 137, Potassium 4.0, Chloride 106, Carbon Dioxide 25.0, Anion Gap 6, BUN 15, Creatinine 1.37 H, Estim Creat Clear Calc 69.29, Est GFR (MDRD) Af Amer 50 L , Est GFR (MDRD) Non-Af 42 L, BUN/Creatinine Ratio 10.9, Glucose 107 H, Calcium 8.2 L Physical Exam Const oriented x3 and no apparent distress Resp normal respiratory effort GI soft to palpation Palpation: tender Extremity normal to inspection Assessment & Plan Assessment/Plan (1) Large bowel obstruction: (2) Incarcerated hernia: PLAN: Plan Patient had sigmoid obstruction due to incarcerated ventral hernia. I was able to reduce the hernia and close it and evaluate the colon. Patient still has a large fecal load that needs the past. She is not passing any gas yet. Continue IV fluids and antibiotics for now. Encouraged ambulation and incentive spirometer. Start Lovenox tomorrow. Lg Gunn MD Pager: [facility] [address] [place] [address], [address] [place] [phone] Office:
[2023-07-27] MEDS: Gabapentin 300 MG Capsule PO ×2 (08:56→21:59)
[2023-07-27] MEDS: Potassium Chloride Oral Tablet 20 MEQ PO (08:56)
[2023-07-27] MEDS: Empagliflozin 10 MG Tablet PO (08:57)
[2023-07-27] MEDS: Latanoprost 0.005% 1 Bottle 1 DRP OPHTHALMIC (08:57)
[2023-07-27] MEDS: Furosemide 40 MG Tablet PO (08:57)
[2023-07-27] MEDS: Atenolol 50 MG Tablet PO ×2 (08:57→21:59)
[2023-07-27] MEDS: BRIMONIDINE 0.2% 5ML BOTTLE 1 DRP RIGHT EYE ×2 (08:59→22:00)
[2023-07-27] MEDS: 0.9% Normal Saline (1000mL) 1,000 ML 100 ML IV ×2 (10:16→19:59)
--- NOTE | 2023-07-27 11:56 | CASEMGMT ---
ALDA STEWART Assessment Face to Face with patient for initial transition planning/care coordination assessment. ALDA STEWART introduced self and role at [facility], pt voices understanding. Pt is A&Ox4 and is resting comfortably in the chair and is calm. Care providers, pharmacy, and demographics verified. Admitting dx: Large bowel obstruction, hernia PCP: Marianela Sandoval Specialists: denies Preferred Pharmacy: [facility] Insurance: [employer] Prescription Benefit: Yes LNOK: French Mir (H), Belen Scott (Daughter) Living Arrangements: Pt lives with her and 2 kids (ages 25 & 28) in a two story home with a FFSU ADLs/IADLs: Ind Transportation: Self, DME: CPAP with no additional oxygen. Cane, BP Cuff, FWW. HHC/SNF: Denies SNF history or needs. States HHC x 6 years ago but cannot recall the name of the agency Pt?s goal: Home Plan: 6-Click is 24. No therapy ordered. Pt denies the need for HHC. Pt states that she may be interested in OP therapy if Dr. Gunn recommends this. CM to follow for potential OP Tx Rx and possible home oxygen. Michi Deleon RN, CM
[2023-07-27] MEDS: Acetaminophen 325 MG Tablet 650 MG PO ×2 (15:03→22:04)
--- NOTE | 2023-07-27 15:12 | CASEMGMT ---
Email to Dior at [employer] who states pt insurance is accepted by [employer] and pt receives her pap supplies through them.
[2023-07-27] MEDS: Atorvastatin Calcium 20 MG Tablet PO (21:59)
[2023-07-27] MEDS: Pramipexole Di-HCl 0.25 MG Tablet PO (21:59)
[2023-07-27] MEDS: Ondansetron 4 MG/2 ML Vial IV (23:29)
[2023-07-28] VITALS (7 sets, daily range): BP systolic 114–149; BP diastolic 62–73; PULSE 68–75; RESP 16–20; TEMP 36.5–36.8; O2SAT 93–98
[2023-07-28] MEDS: 0.9% Normal Saline (1000mL) 1,000 ML 100 ML IV (05:19)
[2023-07-28] MEDS: Levothyroxine 25 MCG TABLET PO (05:19)
[2023-07-28] MEDS: Piperacil/Tazobactam 3.375 GM in 0.9% Normal Saline (50mL MB+) 50 ML IV ×3 (05:19→22:31)
[2023-07-28] MEDS: oxyCODONE 5 MG Tablet PO ×3 (05:27→21:07)
[2023-07-28] MEDS: Budesonide Respules 0.5 MG/2 ML AMPUL.NEB. INHALATION ×2 (07:24→19:21)
[2023-07-28] MEDS: Albuterol 2.5 MG/3 ML VIAL.NEB. INHALATION ×3 (07:24→19:21)
--- NOTE | 2023-07-28 07:30 | PN.SURG_ITS ---
Subjective Subjective Patient seen and examined during AM rounds. She is found resting in bed. She states that she has had some ice chips but has not recovered a significant appetite. She denies any return of bowel function and states that she has been belching. She complains of some uncontrolled pain and shares that her pain remains about a 5 out of 10 in intensity. She is not ambulating much. Objective Data Objective Data Vital Signs: Vital Signs Temp Pulse Resp BP Pulse Ox O2 Del Method O2 Flow Rate 97.7 F L 69 20 H 149/73 H 98 Nasal Cannula 2 07/28/23 05:32 07/28/23 05:32 07/28/23 05:32 07/28/23 05:32 07/28/23 05:32 07/28/23 05:32 07/28/23 05:32 Oxygen Flow Rate (L/min) 2 Oxygen Delivery Method Nasal Cannula Weight: 349 lb 10.45 oz Body Mass Index (BMI) 53.1 Intake & Output: Intake and Output for Last 24 Hours 07/26/23 07/27/23 07/28/23 23:59 23:59 23:59 Intake Total 1098.75 / 1098.75 2273.34 / 2273.34 1043.33 / 1043.33 Output Total 358 / 358 850 / 850 Balance 740.75 / 740.75 1423.34 / 1423.34 1023.33 / 1023.33 Lab / Micro Data 07/28/23 07:58 07/28/23 07:58 Labs: Laboratory Results - last 24 hr 07/27/23 07:16: WBC 13.3 H, RBC 3.41 L, Hgb 9.1 L, Hct 29.9 L, MCV 87.7, MCH 26.7 L, MCHC 30.4 L, RDW Std Deviation 45.8 H, RDW Coeff of Michael 14.5, Plt Count 215, MPV 10.8, Immature Gran % (Auto) 0.400, Neut % (Auto) 77.4 H, Lymph % (Auto) 11.3 L, [place] % (Auto) 10.6 H, Eos % (Auto) 0.1, Baso % (Auto) 0.2, A bsolute Neuts (auto) 10.3 H, Absolute Lymphs (auto) 1.50, Nucleated RBC % 0, Sodium 137, Potassium 4.0, Chloride 106, Carbon Dioxide 25.0, Anion Gap 6, BUN 15, Creatinine 1.37 H, Estim Creat Clear Calc 69.29, Est GFR (MDRD) Af Amer 50 L , Est GFR (MDRD) Non-Af 42 L, BUN/Creatinine Ratio 10.9, Glucose 107 H, Calcium 8.2 L Physical Exam Const oriented x3 and no apparent distress Resp normal respiratory effort GI GI Narrative: Operative dressings intact, abdomen is distended and mildly firm. Patient denies significant tenderness with palpation Assessment & Plan Assessment/Plan (1) Large bowel obstruction: (2) Incarcerated hernia: PLAN: Plan Patient had sigmoid obstruction due to incarcerated ventral hernia. She is now postoperative day 2 from emergent ventral hernia repair. Overall she is recovering as expected but some uncontrolled pain. Will try to change up her narcotics to see if we can improve this pain control and enable her to do more walking so that hopefully this translates to return of bowel function. Additionally, we will try to obtain a abdominal binder so patient feels secure while ambulating. Will hold off the diet advancement until this time. ?Follow-up a.m. labs Kiran Lozada MD General Surgery Endocrine Surgery Pager: [facility] [address] [place] [address], [facility], [address] [place] [address] Office: [phone] Charges/Coding Visit Charges Inpatient E&M: 45489 Subs Hosp L2
[2023-07-28 08:06] LABS: Absolute Neutrophil Count 9.3 X10^3/uL (2.0-7.7); Basophil# 0.05 X10^3/uL; Basophil% 0.4 % (0-1); Eosinophil# 0.21 X10^3/uL; Eosinophils% 1.7 % (0-5); Hematocrit 29.1 % (37-47); Hemoglobin 8.9 g/dL (12.0-15.0); Lymphocyte % 11.2 % (19-41); Mean Corp Hgb Conc 30.6 g/dL (32-36); Mean Corpuscular Hgb 27.3 pg (27.0-32.0); Mean Corpuscular Volume 89.3 fL (81-99); Mean Platelet Vol. 10.2 fl (6.2-12.0); Monocyte# 1.44 X10^3/uL; Monocyte% 11.5 % (0-10); NRBC Flagged by Analyzer 0 % (0-5); Neutrophil # 9.34 X10^3/uL (2.7-7.7); Neutrophil % 74.6 % (47-70); Platelet Count 203 K/mm3 (150-450); RBC Distribution Width CV 14.4 % (11.6-14.6); RBC Distribution Width SD 46.8 fl (35.1-43.9); Red Blood Count 3.26 M/mm3 (4.2-5.4); White Blood Count 12.5 K/mm3 (4.4-11.0)
[2023-07-28 08:33] LABS: Anion Gap 6 (5-15); BUN 25 mg/dL (7-18); BUN/Creat Ratio 12.9 RATIO (10-20); Calcium,Total 7.8 mg/dL (8.5-10.1); Chloride 106 mmol/L (98-107); Creatinine, Serum 1.94 mg/dL (0.55-1.02); EST Glomerular Filtration Rate 28 mL/min (>60); Est Glom Filt Rate - Afr Amer 34 mL/min (>60); Estimated Creatinine Clearance 48.93 ml/min; Glucose 81 mg/dL (74-106); Phosphorus 3.5 mg/dL (2.5-4.9); Potassium 4.2 mmol/L (3.5-5.1); Sodium Level 136 mmol/L (136-145)
[2023-07-28 09:29] LABS: Bedside Glucose 77 mg/dL (74-106)
[2023-07-28] MEDS: Acetaminophen 325 MG Tablet 650 MG PO ×2 (09:32→16:07)
[2023-07-28] MEDS: Gabapentin 300 MG Capsule PO ×2 (09:32→21:07)
[2023-07-28] MEDS: Atenolol 50 MG Tablet PO ×2 (09:34→21:07)
[2023-07-28] MEDS: Potassium Chloride Oral Tablet 20 MEQ PO (09:34)
[2023-07-28] MEDS: Furosemide 40 MG Tablet PO (09:34)
[2023-07-28] MEDS: BRIMONIDINE 0.2% 5ML BOTTLE 1 DRP RIGHT EYE ×2 (09:35→21:08)
[2023-07-28] MEDS: Latanoprost 0.005% 1 Bottle 1 DRP OPHTHALMIC (09:35)
[2023-07-28] MEDS: 0.9% Normal Saline (1000mL) 1,000 ML 125 ML IV ×2 (14:14→22:31)
[2023-07-28] MEDS: Atorvastatin Calcium 20 MG Tablet PO (21:07)
[2023-07-28] MEDS: Pramipexole Di-HCl 0.25 MG Tablet PO (21:08)
[2023-07-28] MEDS: Heparin Injection (Vial) 5,000 UNIT/ML VIAL 5000 UNIT SC (21:09)
[2023-07-29] VITALS (9 sets, daily range): BP systolic 106–123; BP diastolic 54–69; PULSE 63–78; RESP 16–20; TEMP 36.7–37.1; O2SAT 92–98
[2023-07-29] MEDS: Albuterol 2.5 MG/3 ML VIAL.NEB. INHALATION ×4 (04:04→19:19)
[2023-07-29] MEDS: Levothyroxine 25 MCG TABLET PO (05:27)
[2023-07-29] MEDS: Heparin Injection (Vial) 5,000 UNIT/ML VIAL 5000 UNIT SC ×3 (05:27→20:59)
[2023-07-29] MEDS: Piperacil/Tazobactam 3.375 GM in 0.9% Normal Saline (50mL MB+) 50 ML IV ×3 (05:28→20:55)
[2023-07-29] MEDS: 0.9% Normal Saline (1000mL) 1,000 ML 125 ML IV ×2 (05:30→13:28)
[2023-07-29 06:32] LABS: Absolute Lymphocyte Count 0.63 X10^3/uL (0.83-4.51); Absolute Neutrophil Count 8.1 X10^3/uL (2.0-7.7); Basophil# 0.05 X10^3/uL; Basophil% 0.5 % (0-1); Eosinophil# 0.39 X10^3/uL; Eosinophils% 3.8 % (0-5); Hematocrit 27.5 % (37-47); Hemoglobin 8.2 g/dL (12.0-15.0); Lymphocyte # 0.63 X10^3/ul (0.83-4.51); Lymphocyte % 6.2 % (19-41); Mean Corp Hgb Conc 29.8 g/dL (32-36); Mean Corpuscular Hgb 26.4 pg (27.0-32.0); Mean Corpuscular Volume 88.4 fL (81-99); Mean Platelet Vol. 10.6 fl (6.2-12.0); Monocyte# 0.98 X10^3/uL; Monocyte% 9.6 % (0-10); NRBC Flagged by Analyzer 0 % (0-5); Neutrophil # 8.05 X10^3/uL (2.7-7.7); Neutrophil % 79.3 % (47-70); Platelet Count 215 K/mm3 (150-450); RBC Distribution Width CV 14.1 % (11.6-14.6); RBC Distribution Width SD 45.4 fl (35.1-43.9); Red Blood Count 3.11 M/mm3 (4.2-5.4); White Blood Count 10.2 K/mm3 (4.4-11.0)
[2023-07-29 07:02] LABS: Anion Gap 6 (5-15); BUN 22 mg/dL (7-18); BUN/Creat Ratio 12.6 RATIO (10-20); Calcium,Total 7.8 mg/dL (8.5-10.1); Chloride 104 mmol/L (98-107); Creatinine, Serum 1.74 mg/dL (0.55-1.02); EST Glomerular Filtration Rate 32 mL/min (>60); Est Glom Filt Rate - Afr Amer 38 mL/min (>60); Estimated Creatinine Clearance 54.55 ml/min; Glucose 105 mg/dL (74-106); Potassium 3.8 mmol/L (3.5-5.1); Sodium Level 133 mmol/L (136-145)
[2023-07-29] MEDS: Budesonide Respules 0.5 MG/2 ML AMPUL.NEB. INHALATION ×2 (07:15→19:19)
--- NOTE | 2023-07-29 07:32 | PN.SURG_ITS ---
Subjective Subjective Patient seen and examined during AM rounds. She is found getting up out of bed to a chair. She reports that her legs are somewhat weak this morning but overall her pain is better controlled. She also reports consistent passage of flatus and return of her appetite. Objective Data Objective Data Vital Signs: Vital Signs Temp Pulse Resp BP Pulse Ox O2 Del Method O2 Flow Rate 98.8 F 68 20 H 118/69 98 Nasal Cannula 2 07/29/23 05:30 07/29/23 05:30 07/29/23 05:30 07/29/23 05:30 07/29/23 05:30 07/29/23 05:30 07/29/23 05:30 Oxygen Flow Rate (L/min) 2 Oxygen Delivery Method Nasal Cannula Weight: 349 lb 10.45 oz Body Mass Index (BMI) 53.1 Intake & Output: Intake and Output for Last 24 Hours 07/27/23 07/28/23 07/29/23 23:59 23:59 23:59 Intake Total 2273.34 / 2273.34 2970.41 / 2970.41 922.92 / 922.92 Output Total 850 / 850 660 / 660 Balance 1423.34 / 1423.34 2310.41 / 2310.41 922.92 / 922.92 Lab / Micro Data 07/29/23 05:55 07/29/23 05:55 Labs: Laboratory Results - last 24 hr 07/28/23 07:58: WBC 12.5 H, RBC 3.26 L, Hgb 8.9 L, Hct 29.1 L, MCV 89.3, MCH 27.3, MCHC 30.6 L, RDW Std Deviation 46.8 H, RDW Coeff of Michael 14.4, Plt Count 203, MPV 10.2, Immature Gran % (Auto) 0.600, Neut % (Auto) 74.6 H, Lymph % (Auto) 11.2 L, Ellis % (Auto) 11.5 H, Eos % (Auto) 1.7, Baso % (Auto) 0.4, A bsolute Neuts (auto) 9.3 H, Absolute Lymphs (auto) 1.40, Nucleated RBC % 0, Sodium 136, Potassium 4.2, Chloride 106, Carbon Dioxide 24.0, Anion Gap 6, BUN 25 H, Creatinine 1.94 H, Estim Creat Clear Calc 48.93, Est GFR (MDRD) Af Amer 34 L, Est GFR (MDRD) Non-Af 28 L, BUN/Creatinine Ratio 12.9, Glucose 81, Calcium 7.8 L, Phosphorus 3.5, Magnesium 2.0 07/28/23 09:10: POC Glucose 77 07/29/23 05:55: WBC 10.2, RBC 3.11 L, Hgb 8.2 L, Hct 27.5 L, MCV 88.4, MCH 26.4 L, MCHC 29.8 L, RDW Std Deviation 45.4 H, RDW Coeff of Michael 14.1, Plt Count 215, MPV 10.6, Immature Gran % (Auto) 0.600, Neut % (Auto) 79.3 H, Lymph % (Auto) 6.2 L, Ellis % (Auto) 9.6, Eos % (Auto) 3.8, Baso % (Auto) 0.5, Absolute Neuts (auto) 8.1 H, Absolute Lymphs (auto) 0.63 L, Nucleated RBC % 0, Sodium 133 L, Potassium 3.8, Chloride 104, Carbon Dioxide 23.0, Anion Gap 6, BUN 22 H, Creatinine 1.74 H , Estim Creat Clear Calc 54.55, Est GFR (MDRD) Af Amer 38 L, Est GFR (MDRD) Non- Af 32 L, BUN/Creatinine Ratio 12.6, Glucose 105, Calcium 7.8 L Physical Exam Const oriented x3 and no apparent distress GI GI Narrative: Abdominal binder in place, patient's abdomen is less distended, softer, less tender to palpation Assessment & Plan Assessment/Plan (1) Large bowel obstruction: (2) Incarcerated hernia: PLAN: Plan Patient had sigmoid obstruction due to incarcerated ventral hernia. She is now postoperative day 3 from emergent ventral hernia repair. Her pain control is improved and she has had more consistent bowel function since yesterday. She also reports tolerance of her diet advancement to clear liquid yesterday so I will further advance this today. I will provide a gentle stool softener to try to assist her with a bowel movement following her surgery. Peripheral to her surgery patient had a slight elevation of her creatinine yesterday so her Lasix was held. This appears to be downtrending today with increase in her IV fluids and this hold, however, will continue to hold today and follow for tomorrow's labs before reinstituting. With patient's decreased mobility postop and stability of her hemoglobin she was also started on DVT prophylaxis with subcu heparin 3 times daily. Will continue to monitor her CBC. Kiran Lozada MD General Surgery Endocrine Surgery Pager: [facility] [address] [place] [address], [facility], [address] [place] [id number] Office: [phone] Charges/Coding Visit Charges Inpatient E&M: 41205 Subs Hosp L2
[2023-07-29] MEDS: Potassium Chloride Oral Tablet 20 MEQ PO (08:16)
[2023-07-29] MEDS: BRIMONIDINE 0.2% 5ML BOTTLE 1 DRP RIGHT EYE ×2 (08:16→20:59)
[2023-07-29] MEDS: Atenolol 50 MG Tablet PO ×2 (08:17→20:58)
[2023-07-29] MEDS: Latanoprost 0.005% 1 Bottle 1 DRP OPHTHALMIC (08:18)
[2023-07-29] MEDS: Gabapentin 300 MG Capsule PO ×2 (08:20→20:55)
[2023-07-29] MEDS: Acetaminophen 325 MG Tablet 650 MG PO ×2 (08:26→17:46)
[2023-07-29] MEDS: oxyCODONE 5 MG Tablet PO ×2 (08:27→17:46)
[2023-07-29] MEDS: Senna/Docusate Sodium 1 Tablet PO (10:00)
[2023-07-29] MEDS: Calcium Carbonate 500 MG Tablet PO ×2 (16:58→20:55)
[2023-07-29] MEDS: Atorvastatin Calcium 20 MG Tablet PO (20:59)
[2023-07-29] MEDS: Pramipexole Di-HCl 0.25 MG Tablet PO (20:59)
[2023-07-30] VITALS (7 sets, daily range): BP systolic 115–134; BP diastolic 57–63; PULSE 59–83; RESP 14–18; TEMP 36.6–36.7; O2SAT 95–100
[2023-07-30] MEDS: 0.9% Normal Saline (1000mL) 1,000 ML 75 ML IV ×2 (00:31→13:51)
[2023-07-30] MEDS: Levothyroxine 25 MCG TABLET PO (05:57)
[2023-07-30] MEDS: oxyCODONE 5 MG Tablet PO ×3 (05:57→20:57)
[2023-07-30] MEDS: Acetaminophen 325 MG Tablet 650 MG PO ×3 (05:57→20:58)
[2023-07-30] MEDS: Piperacil/Tazobactam 3.375 GM in 0.9% Normal Saline (50mL MB+) 50 ML IV (06:01)
[2023-07-30] MEDS: Heparin Injection (Vial) 5,000 UNIT/ML VIAL 5000 UNIT SC ×3 (06:01→20:59)
[2023-07-30 06:57] LABS: Absolute Lymphocyte Count 1.25 X10^3/uL (0.83-4.51); Absolute Neutrophil Count 3.9 X10^3/uL (2.0-7.7); Basophil# 0.04 X10^3/uL; Basophil% 0.6 % (0-1); Eosinophil# 0.58 X10^3/uL; Eosinophils% 8.9 % (0-5); Hematocrit 27.2 % (37-47); Hemoglobin 8.1 g/dL (12.0-15.0); Lymphocyte # 1.25 X10^3/ul (0.83-4.51); Lymphocyte % 19.1 % (19-41); Mean Corp Hgb Conc 29.8 g/dL (32-36); Mean Corpuscular Volume 87.5 fL (81-99); Mean Platelet Vol. 9.8 fl (6.2-12.0); Monocyte# 0.71 X10^3/uL; Monocyte% 10.9 % (0-10); NRBC Flagged by Analyzer 0 % (0-5); Neutrophil # 3.91 X10^3/uL (2.7-7.7); Neutrophil % 59.9 % (47-70); Platelet Count 231 K/mm3 (150-450); RBC Distribution Width SD 44.3 fl (35.1-43.9); Red Blood Count 3.11 M/mm3 (4.2-5.4); White Blood Count 6.5 K/mm3 (4.4-11.0)
[2023-07-30] MEDS: Albuterol 2.5 MG/3 ML VIAL.NEB. INHALATION ×3 (07:19→19:22)
[2023-07-30] MEDS: Budesonide Respules 0.5 MG/2 ML AMPUL.NEB. INHALATION ×2 (07:19→19:23)
[2023-07-30 07:35] LABS: Anion Gap 5 (5-15); BUN 12 mg/dL (7-18); Calcium,Total 8.5 mg/dL (8.5-10.1); Chloride 107 mmol/L (98-107); Creatinine, Serum 1.33 mg/dL (0.55-1.02); EST Glomerular Filtration Rate 43 mL/min (>60); Est Glom Filt Rate - Afr Amer 52 mL/min (>60); Estimated Creatinine Clearance 71.37 ml/min; Glucose 112 mg/dL (74-106); Potassium 3.9 mmol/L (3.5-5.1); Sodium Level 138 mmol/L (136-145)
--- NOTE | 2023-07-30 07:38 | PN.SURG_ITS ---
Subjective Subjective Patient reports she is comfortable. She is tolerating full liquids. She is passing flatus but has not had a bowel movement since surgery. Objective Data Objective Data Vital Signs: Vital Signs Temp Pulse Resp BP Pulse Ox O2 Del Method O2 Flow Rate 97.9 F 59 L 16 122/58 H 100 Nasal Cannula 2 07/30/23 06:00 07/30/23 06:00 07/30/23 06:00 07/30/23 06:00 07/30/23 06:00 07/30/23 06:00 07/30/23 06:00 Oxygen Flow Rate (L/min) 2 Oxygen Delivery Method Nasal Cannula Weight: 349 lb 10.45 oz Body Mass Index (BMI) 53.1 Intake & Output: Intake and Output for Last 24 Hours 07/28/23 07/29/23 07/30/23 23:59 23:59 23:59 Intake Total 2970.41 / 2970.41 3206.25 / 3206.25 612.5 / 612.5 Output Total 660 / 660 80 / 80 25 / 25 Balance 2310.41 / 2310.41 3126.25 / 3126.25 587.5 / 587.5 Lab / Micro Data 07/30/23 06:44 07/30/23 06:44 Labs: Laboratory Results - last 24 hr 07/30/23 06:44: WBC 6.5, RBC 3.11 L, Hgb 8.1 L, Hct 27.2 L, MCV 87.5, MCH 26.0 L , MCHC 29.8 L, RDW Std Deviation 44.3 H, RDW Coeff of Michael 14.0, Plt Count 231, MPV 9.8, Immature Gran % (Auto) 0.600, Neut % (Auto) 59.9, Lymph % (Auto) 19.1, [place] % (Auto) 10.9 H, Eos % (Auto) 8.9 H, Baso % (Auto) 0.6, Absolute Neuts (auto) 3.9, Absolute Lymphs (auto) 1.25, Nucleated RBC % 0, Sodium 138, Potassium 3.9, Chloride 107, Carbon Dioxide 26.0, Anion Gap 5, BUN 12, C reatinine 1.33 H, Estim Creat Clear Calc 71.37, Est GFR (MDRD) Af Amer 52 L, Est GFR (MDRD) Non-Af 43 L, BUN/Creatinine Ratio 9.0 L, Glucose 112 H, Calcium 8.5 Physical Exam Const oriented x3 and no apparent distress Resp normal respiratory effort GI soft to palpation and non-tender Assessment & Plan Assessment/Plan (1) Large bowel obstruction: (2) Incarcerated hernia: PLAN: Plan The patient has still not had a bowel movement and there was stool proximal to the obstruction. She is passing flatus. I will order MiraLAX today and she is on stool softeners. If this does not produce results I will try an enema. Drain is serosanguineous. Incision is clean dry and intact. Lg Gunn MD Pager: [facility] [address] [place] [address], [address] [place] [address] Office:
[2023-07-30] MEDS: Potassium Chloride Oral Tablet 20 MEQ PO (07:42)
[2023-07-30] MEDS: Senna/Docusate Sodium 1 Tablet PO (07:43)
[2023-07-30] MEDS: Atenolol 50 MG Tablet PO ×2 (07:43→21:00)
[2023-07-30] MEDS: Empagliflozin 10 MG Tablet PO (07:43)
[2023-07-30] MEDS: Gabapentin 300 MG Capsule PO ×2 (07:43→20:57)
[2023-07-30] MEDS: Latanoprost 0.005% 1 Bottle 1 DRP OPHTHALMIC (07:43)
[2023-07-30] MEDS: BRIMONIDINE 0.2% 5ML BOTTLE 1 DRP RIGHT EYE ×2 (07:44→20:59)
[2023-07-30] MEDS: Polyethylene Glycol 3350 17 GM PACKET 34 GM PO (07:48)
[2023-07-30] MEDS: Pantoprazole Sodium 40 MG in 0.9% Normal Saline (100mL MB+) 100 ML 330 MG IV (09:42)
[2023-07-30] MEDS: Calcium Carbonate 500 MG Tablet PO (09:42)
--- NOTE | 2023-07-30 19:24 | NURSING ---
1700-fleets not given as pt wanted to wait and see if she could have a bm on her own
[2023-07-30] MEDS: Atorvastatin Calcium 20 MG Tablet PO (20:59)
[2023-07-30] MEDS: Pramipexole Di-HCl 0.25 MG Tablet PO (21:00)
[2023-07-31 03:00] VITALS: BP 136/65; PULSE 59; RESP 18; TEMP 36.5; O2SAT 100
[2023-07-31] MEDS: 0.9% Normal Saline (1000mL) 1,000 ML 75 ML IV (03:12)
[2023-07-31] MEDS: Levothyroxine 25 MCG TABLET PO (05:50)
[2023-07-31] MEDS: Heparin Injection (Vial) 5,000 UNIT/ML VIAL 5000 UNIT SC ×2 (05:50→14:05)
[2023-07-31 06:55] VITALS: PULSE 55; RESP 14; O2SAT 94
[2023-07-31] MEDS: Budesonide Respules 0.5 MG/2 ML AMPUL.NEB. INHALATION (06:55)
[2023-07-31] MEDS: Albuterol 2.5 MG/3 ML VIAL.NEB. INHALATION (06:55)
--- NOTE | 2023-07-31 07:14 | CT_ITS ---
STUDY: CT ABDOMEN AND PELVIS WITH CONTRAST REASON FOR EXAM: Female, 62 years old. Large bowel obstruction -- PO and IV contrast RADIATION DOSAGE (If Supplied By Facility): CTDIvol = ( 21.87 ) mGy, DLP = ( 1874.06 ) mGycm TECHNIQUE: Transaxial images were obtained from the dome of the diaphragm to the symphysis pubis with oral contrast. Oral and amp; IV Gastrografin and amp; 100mL Isovue-300 was administered. Sagittal and coronal images were reconstructed. Individualized dose optimization techniques were used for this CT. COMPARISON: Comparison is made with prior study dated July 26, 2023. FINDINGS: Mild degree of bibasilar atelectasis. The visualized portions of the heart are within normal limits. Normal liver. There are multiple small gallstones. There are multiple benign calcified granulomata of the spleen. Normal pancreas. Normal bilateral adrenal glands. Normal right kidney. Normal left kidney. Normal visualized stomach. Normal small intestine. Normal colon. The appendix is visualized and appears normal. There is scattered atherosclerotic calcification of the abdominal aorta, without a demonstrated aneurysm. Normal inferior vena cava. There is evidence of increased soft tissue density within the mesenteric fat in the right lower quadrant most likely at the site of the prior bowel obstruction and postoperative changes. No evidence of abscess or fluid collection is seen. Normal urinary bladder. The previously seen lower anterior abnormal hernia as been repaired. A drainage catheter is seen within the subcutaneous tissue. Mild residual increased markings are seen in the subcutaneous fat most likely postsurgical in nature. Status post bilateral hip replacement. Grade 1 spondylolisthesis of L4 on L5. CT/Abdomen/Pelvis WITH Contrast IMPRESSION: There is been repair of the lower anterior abdominal wall hernia with postoperative changes in the subcutaneous fat. A drainage catheter seen within it. Stranding in the peritoneal fat in the right lower quadrant. Electronically Signed: Mars Negrete MD at 10:05 EDT ,
--- NOTE | 2023-07-31 07:48 | PN.SURG_ITS ---
Subjective Subjective Patient had 2 scoops of MiraLAX yesterday. She refused fleets enema. She still has not had a bowel movement she is passing gas. She reports she is not in any pain. Objective Data Objective Data Vital Signs: Vital Signs Temp Pulse Resp BP Pulse Ox O2 Del Method O2 Flow Rate 98.0 F 66 18 115/61 97 Room Air 2 07/30/23 21:26 07/30/23 21:26 07/30/23 21:26 07/30/23 21:26 07/30/23 21:26 07/30/23 21:26 07/30/23 06:00 Oxygen Flow Rate (L/min) 2 Oxygen Delivery Method Room Air Weight: 349 lb 10.45 oz Body Mass Index (BMI) 53.1 Intake & Output: Intake and Output for Last 24 Hours 07/29/23 07/30/23 07/31/23 23:59 23:59 23:59 Intake Total 3206.25 / 3206.25 1772.5 / 1772.5 1000 / 1000 Output Total 80 / 80 45 / 45 Balance 3126.25 / 3126.25 1727.5 / 1727.5 1000 / 1000 Lab / Micro Data 07/30/23 06:44 07/30/23 06:44 Physical Exam Const oriented x3 and no apparent distress Resp normal respiratory effort GI soft to palpation and non-tender Assessment & Plan Assessment/Plan (1) Large bowel obstruction: PLAN: The patient's abdomen is soft and nontender but she is still only passing flatus with no bowel movement since a week ago. I am ordering a CT scan with oral and IV contrast to evaluate the colon. It is possible that the area became ischemic and stenotic and she may still require resection. Drain is serous and incision is clean dry and intact with no sign of infection. Lg Gunn MD Pager: [facility] [address] [place] [address], [address] [place] [address] Office:
[2023-07-31 08:00] VITALS: BP 138/64; PULSE 57; RESP 16; TEMP 36.3; O2SAT 100
--- NOTE | 2023-07-31 10:12 | PCM.DC.SUM ---
Providers Date of Admission: 07/26/23 Primary Care Physician: Marianela Sandoval MD Reason For Visit: LARGE BOWEL OBSTRUCTION, HRNIA Diagnosis Discharge Diagnosis (1) Large bowel obstruction: Status: Acute Code(s): K56.609 - Unspecified intestinal obstruction, unspecified as to partial versus complete obstruction Plan: The patient's abdomen is soft and nontender but she is still only passing flatus with no bowel movement since a week ago. I am ordering a CT scan with oral and IV contrast to evaluate the colon. It is possible that the area became ischemic and stenotic and she may still require resection. Drain is serous and incision is clean dry and intact with no sign of infection. Lg Gunn MD Pager: [facility] [address] [place] [address], [address] [place] [phone] Office: Medications at Discharge Home Medications atenolol 50 mg tablet 50 mg PO BID 09/15/16 ropinirole 0.5 mg tablet 0.5 mg PO QHS 09/15/16 meloxicam 15 mg tablet 15 mg PO DAILY 08/16/17 multivitamin 1 ea PO DAILY 08/16/17 gabapentin 300 mg capsule 300 mg PO BID 06/18/19 albuterol sulfate 90 mcg/actuation aerosol inhaler 1 puff inhalation PRN PRN Sob &/Or Wheezing 11/13/19 furosemide 40 mg tablet 40 mg PO DAILY 12/11/19 potassium chloride 20 mEq oral packet 20 meq PO DAILY 12/11/19 brimonidine 0.2 % eye drops 1 drp RIGHT EYE BID 07/26/23 budesonide 0.5 mg/2 mL suspension for nebulization 0.5 mg inhalation BID sob 07/26/23 dapagliflozin propanediol 5 mg tablet (Farxiga) 5 mg PO DAILY 07/26/23 fluticasone furoate 200 mcg-vilanterol 25 mcg/dose inhalation powder (Breo Ellipta) 1 ea inhalation DAILY 07/26/23 latanoprost 0.005 % eye drops 1 drp ophthalmic (eye) DAILY 07/26/23 levothyroxine 25 mcg tablet 25 mcg PO DAILY 07/26/23 ondansetron HCl 4 mg tablet 4 mg PO TID PRN 07/26/23 rosuvastatin 10 mg tablet 10 mg PO DAILY 07/26/23 acetaminophen 325 mg tablet 650 mg (2 x 325 mg) PO Q6H PRN PRN Pain 1-10 Or Fever #0 tabs 07/31/23 oxycodone 5 mg tablet 5 - 10 mg (1 - 2 x 5 mg) PO Q4H PRN PRN Pain Score 4-10 5 days #20 tabs 07/31/23 Hospital Course Operations herniorrhaphy Summary of Care Provided Hospital Course: Patient presented to the emergency room with incarcerated sigmoid colon and a ventral hernia causing bowel obstruction. The patient was taken immediately to surgery and the bowel was reduced and the hernia was repaired with a drain in the subcutaneous tissue. This morning she was still not having bowel movements. Postoperatively the patient had ileus and it took her several days to have a bowel movement. She had a CT scan done that did not show any obstruction and she is given an enema. When she has a bowel movement she will be discharged home. She will keep the drain in place until next week and I will remove it. Weight / BMI Weight Weight: 349 lb 10.45 oz Body Mass Index (BMI) 53.1 ABG / Lab / Microbiology Data 07/30/23 06:44 07/30/23 06:44 Radiography Diagnostic Testing: Radiology Impression Abdomen/Pelvis CT 07/31/23 07:14 IMPRESSION: There is been repair of the lower anterior abdominal wall hernia with postoperative changes in the subcutaneous fat. A drainage catheter seen within it. Stranding in the peritoneal fat in the right lower quadrant. Electronically Signed: Mars Negrete MD at 10:05 EDT , D/C Instructions Discharge Diet: No restrictions Discharge Activity: May Shower Lifting Restrictions: No lifting over 15 pounds for 6 weeks Additional Activity Instructions: Alternate ibuprofen and Tylenol for pain, oxycodone for breakthrough pain. Call your doctor if your incision/area has: Continuous Slow Oozing, Sudden Increased Bleeding, Increased Pain/ Swelling, Increased Redness, Foul Smelling Discharge and Swelling at the incision site Call your doctor if you observe: Fever of 101 or Higher Cleanse incision/area with: Soap & Water Drain: Suction Additional Dressing/Incision Instructions: Keep drain to suction and record daily output Please Follow Up With: Lg Gunn MD When: Please call to schedule 1 week follow up appointment. [phone] Meaningful Use Info Meaningful Use Meaningful Use Diagnoses (Choose all that apply): None applicable Ischemic Stroke Statin Dosing Therapy Reference: STATIN DOSE THERAPY REFERENCE: * Patients > 75 years receive moderate or high dose statin therapy. * Patients 75 years or YOUNGER should receive HIGH intensity statin dose unless contraindicated. You will be required to document reason for non-treatment if statin daily dose does not meet guidelines. HIGH DOSE STATIN THERAPY DAILY Atorvastatin > than or = to 40 mg Rosuvastatin > than or = to 20 mg Amlodipine + Atorvastatin > than or = to 2.5/40 mg Ezetimibe + Simvastatin 10/80 mg Simvastatin 80mg Discharge Plan Admission Admit Date/Time: 07/26/23 22:20 Attending Provider: Lg Gunn Primary Care Provider: Marianela Sandoval Discharge Orders/Prescriptions Prescriptions: New acetaminophen 325 mg Tablet 650 mg PO Q6H PRN PRN (Reason: Pain 1-10 Or Fever) Qty: 0 0RF oxycodone 5 mg Tablet 5 - 10 mg PO Q4H PRN PRN (Reason: Pain Score 4-10) 5 Days Qty: 20 0RF Continued gabapentin 300 mg capsule 300 mg PO BID Patient Comments: TAKE 1 CAPSULE BY MOUTH TWICE DAILY albuterol sulfate 90 mcg/actuation HFA aerosol inhaler 1 puff INHALATION PRN PRN (Reason: Sob &/Or Wheezing) Patient Comments: INHALE 1 TO 2 PUFFS BY MOUTH EVERY 4 TO 6 HOURS NEEDED ropinirole 0.5 MG tablet 0.5 mg PO QHS atenolol 50 MG tablet 50 mg PO BID multivitamin 1 EACH tablet 1 ea PO DAILY meloxicam 15 MG tablet 15 mg PO DAILY furosemide 40 MG tablet 40 mg PO DAILY potassium chloride 20 MEQ packet 20 meq PO DAILY latanoprost 0.005 % drops 1 drp ophthalmic (eye) DAILY ondansetron HCl 4 mg tablet 4 mg PO TID PRN levothyroxine 25 mcg tablet 25 mcg PO DAILY brimonidine 0.2 % drops 1 drp RIGHT EYE BID dapagliflozin propanediol [Farxiga] 5 mg tablet 5 mg PO DAILY fluticasone furoate-vilanterol [Breo Ellipta] 200-25 mcg/dose blister with device 1 ea INHALATION DAILY rosuvastatin 10 mg tablet 10 mg PO DAILY budesonide 0.5 mg/2 mL suspension for nebulization 0.5 mg inhalation BID Referrals / Follow Up: Marianela Sandoval MD [Primary Care Provider] - Disposition Disposition (needs filled in before D/C Order can be placed): Home, Self Care
[2023-07-31] MEDS: Gabapentin 300 MG Capsule PO (10:49)
[2023-07-31] MEDS: Senna/Docusate Sodium 1 Tablet PO (10:49)
[2023-07-31] MEDS: Acetaminophen 325 MG Tablet 650 MG PO (10:49)
[2023-07-31] MEDS: oxyCODONE 5 MG Tablet PO ×2 (10:49→15:26)
[2023-07-31] MEDS: Potassium Chloride Oral Tablet 20 MEQ PO (10:50)
[2023-07-31] MEDS: Latanoprost 0.005% 1 Bottle 1 DRP OPHTHALMIC (10:50)
[2023-07-31] MEDS: Empagliflozin 10 MG Tablet PO (10:50)
[2023-07-31] MEDS: Fleet Enema 133 ML RC (10:51)
[2023-07-31] MEDS: BRIMONIDINE 0.2% 5ML BOTTLE 1 DRP RIGHT EYE (10:51)
[2023-07-31 15:20] VITALS: BP 146/74; PULSE 63; RESP 14; TEMP 36.4; O2SAT 97
--- NOTE | 2023-07-31 16:07 | CASEMGMT ---
RN CM into pt room, pt states she has been educated on the MARCOS drain and feels comfortable to go home. Pt denies any further homegoing needs at this time. Per nurse, pt does not need oxygen at home. Pt up indep in room.
== END 2023-07-31 16:13 | disposition home or self-care (01) | DRG 354 ==
LOC: ED 18:52 → SDC 19:34 → MS3 19:52 → SDC 22:59 → MS3 22:59
PROVIDERS: Nurse Practitioner; Surgery; Admitting Provider Surgery; Emergency Provider Emergency Medicine; PCP Family Medicine; Visit Provider Surgery
PROC: 0WQF0ZZ Repair Abdominal Wall, Open Approach (ICD-10-PCS; CPT 44202; principal; 2023-07-26 20:00)
DX: K43.6 Other and unspecified ventral hernia with obstruction, without gangrene (principal); K56.609 Unspecified intestinal obstruction, unspecified as to partial versus complete obstruction; N17.9 Acute kidney failure, unspecified; Z68.43 Body mass index [BMI] 50.0-59.9, adult; E66.01 Morbid (severe) obesity due to excess calories; I10 Essential (primary) hypertension; J45.909 Unspecified asthma, uncomplicated; Z53.39 Other specified procedure converted to open procedure; Z79.51 Long term (current) use of inhaled steroids; Z79.890 Hormone replacement therapy; Z79.899 Other long term (current) drug therapy; Z87.891 Personal history of nicotine dependence
CPT/HCPCS: 36415; 74177; 80048; 80053; 82962; 83605; 83690; 83735; 84100; 85025; 88302; 93005; 94640; 94668; 99283; A4648; J7030; Q9967; A4216; J2405

== ENCOUNTER → 2023-07-26 | Outpatient (CLI) | payer BC, SELFPAY ==
--- NOTE | 2023-07-26 16:44 | CT_ITS ---
We are attempting to reach an attending provider to discuss findings. An addendum with communication details will be sent when the communication is complete. STUDY: CT ABDOMEN AND PELVIS WITH CONTRAST REASON FOR EXAM: Female, 62 years old. KIDNEY PAIN RADIATION DOSAGE (If Supplied By Facility): CTDIvol = ( 16.40 ) mGy, DLP = ( 1507.51 ) mGycm TECHNIQUE: Transaxial images were obtained from the dome of the diaphragm to the symphysis pubis without oral contrast. IV 100mL Isovue-300 was administered. Sagittal and coronal images were reconstructed. Individualized dose optimization techniques were used for this CT. COMPARISON: None. FINDINGS: The visualized lung bases are unremarkable. The visualized portions of the heart are within normal limits. Normal liver. Outside gallstones are noted without pericholecystic edema.. Normal spleen. Normal pancreas. Normal bilateral adrenal glands. Normal right kidney. Normal left kidney. Normal visualized stomach. Normal small intestine. There is diffusely distended fecal filled ascending, transverse and descending colon proximal to the herniated portion of the colon extending into a large anterior pelvic wall hernia. The colon decreases in size within and distal to the hernia consistent with obstruction. There is associated stranding in the pericolonic fat proximal to the herniated segment as well as a small amount of fluid in the pelvis.. No evidence for acute appendicitis. Minor atherosclerotic changes of the aorta without evidence for aneurysm. Normal inferior vena cava. Normal retroperitoneum. Normal urinary bladder. Lumbar spine demonstrates degenerative changes. Grade 1 spondylolisthesis at L4-5 Bilateral hip prostheses are observed. CT/Abdomen/Pelvis WITH Contrast IMPRESSION: Findings consistent with colonic obstruction proximal to herniation into a large anterior pelvic wall hernia There is stranding in the fat and fluid in the pelvic cavity raising question of incarceration and early ischemic changes. Clinical correlation recommended Cholelithiasis without evidence for acute cholecystitis Electronically Signed: Jp Rodrigues MD at 17:41 EDT ,
[2023-07-26 17:12] LABS: CREATININE FINGERSTICK 1.1 mg/dL (0.55-1.02)
== END | disposition home or self-care (01) ==
PROVIDERS: PCP Family Medicine; Referring Provider Family Medicine; Visit Provider Family Medicine
DX: N23 Unspecified renal colic (principal)
CPT/HCPCS: 74177; Q9967

== ENCOUNTER → 2023-08-20 | Outpatient (CLI) | payer BC, SELFPAY | END | disposition home or self-care (01) | LOC: LABSPEC 11:30 | PROVIDERS: PCP Family Medicine; Referring Provider Physician Assistant; Visit Provider Physician Assistant | DX: T81.49XA Infection following a procedure, other surgical site, initial encounter (principal); X58.XXXA Exposure to other specified factors, initial encounter | CPT/HCPCS: 87070; 87075; 87186; 87205 ==

== ENCOUNTER → 2023-08-23 | Outpatient (CLI) | payer BC, SELFPAY | END | disposition home or self-care (01) | LOC: MFPLAB 10:53 | PROVIDERS: PCP Family Medicine; Visit Provider Family Medicine | DX: E03.9 Hypothyroidism, unspecified (principal) | CPT/HCPCS: 36415; 84443 ==

== ENCOUNTER → 2024-03-13 | Outpatient (CLI) | payer BC, SELFPAY | END | disposition home or self-care (01) | LOC: MFPLAB 10:04 | PROVIDERS: PCP Family Medicine; Referring Provider Family Medicine; Visit Provider Family Medicine | DX: E03.9 Hypothyroidism, unspecified (principal) | CPT/HCPCS: 36415; 84443 ==

== ENCOUNTER 2024-11-19 08:51 | Outpatient (CLI) | payer BC, SELFPAY ==
[2024-11-19 11:03] LABS: AST(SGOT) 21 U/L (<=31); Alanine Aminotransfer ALT/SGPT 9 U/L (<=34); Albumin, Serum 4.1 g/dL (3.4-4.8); Alkaline Phosphatase 71 U/L (35-104); Anion Gap 9 (5-15); BUN 21 mg/dL (4-19); BUN/Creat Ratio 16.3 RATIO (10-20); Calcium,Total 9.4 mg/dL (7.6-11.0); Carbon Dioxide 26.6 mmol/L (21.0-32.0); Chloride 102 mmol/L (98-108); Cholesterol 129 mg/dL (<=200); Globulin 3.3 g/dL (2.2-4.2); Glucose 115 mg/dL (70-99); Low Density Lipoprotein Calc. 34 mg/dL; Potassium 4.5 mmol/L (3.3-5.1); Triglycerides 127 mg/dL; Very Low Density Lipoprotein 25 mg/dL (5-40); cholesterol:hdl ratio screen 1.86
[2024-11-19 11:44] LABS: Vitamin D,25 Hydroxy 40.7 ng/mL (30-100)
== END 2024-11-19 23:59 | disposition home or self-care (01) ==
LOC: MFPLAB 08:53
PROVIDERS: PCP Family Medicine; Visit Provider Family Medicine
DX: I10 Essential (primary) hypertension (principal); E11.9 Type 2 diabetes mellitus without complications; E03.9 Hypothyroidism, unspecified; E78.00 Pure hypercholesterolemia, unspecified
CPT/HCPCS: 36415; 80053; 80061; 82306; 83036; 84443

== ENCOUNTER 2024-12-19 15:41 | Emergency (ER) | payer BC, SELFPAY ==
[2024-12-19 15:42] VITALS: BP 175/79; PULSE 61; RESP 14; TEMP 36.8; O2SAT 99
[2024-12-19 15:52] VITALS: BMI 51.9
--- NOTE | 2024-12-19 16:01 | EDS_ITS ---
HPI History of Present Illness Chief Complaint: Lower Extremity Injury Narrative Narrative: Patient is a 64-year-old female presenting to the emergency department for atraumatic right hip pain. Patient has a past medical history of hypertension, anemia, morbid obesity. Patient had a total hip replacement of the right side done in 2011. She states she intermittently has "issues" with her hip. States that it started Sunday evening. Has been taking Tylenol for pain control. Last dose was this morning. She denies any trauma or falls. Denies any pain going down her right leg. States it all stays in the lateral right hip. Denies any numbness or weakness in her leg. Denies any abdominal pain. Denies fever, chills, nausea, vomiting, otherwise feels well. [facility] Medical History Right shoulder pain Influenza A Morbid obesity Depression Restless leg Anemia Back pain Asthma Arthritis HTN (hypertension) Home Medications Medication Instructions Recorded Last Taken Type atenolol 50 mg tablet 50 mg PO BID 09/15/16 07:00 History ropinirole 0.5 mg tablet 0.5 mg PO QHS 09/15/16 Unkno wn History meloxicam 15 mg tablet 15 mg PO DAILY 08/16/17 Unkn own History multivitamin 1 ea PO DAILY 08/16/17 Unkno wn History albuterol sulfate 90 mcg/actuation 1 puff inhalation P RN PRN Sob &/Or 11/13/19 Unknown History aerosol inhaler Wheezing furosemide 40 mg tablet 40 mg PO DAILY 12/11/19 Unkn own History potassium chloride 20 mEq oral 20 meq PO DAILY 0 Unknown History packet brimonidine 0.2 % eye drops 1 drp RIGHT EYE BID Unknown History budesonide 0.5 mg/2 mL suspension 0.5 mg inhalation BI D sob 07/26/23 Unknown History for nebulization dapagliflozin propanediol 5 mg 5 mg PO DAILY 07/26/23 Unknown History tablet (Farxiga) fluticasone furoate 200 1 ea inhalation DAILY Unknown History mcg-vilanterol 25 mcg/dose inhalation powder (Breo Ellipta) latanoprost 0.005 % eye drops 1 drp ophthalmic (eye) D AILY 07/26/23 Unknown History levothyroxine 25 mcg tablet 25 mcg PO DAILY 07/26/23 U nknown History ondansetron HCl 4 mg tablet 4 mg PO TID PRN 07/26/23 U nknown History rosuvastatin 10 mg tablet 10 mg PO DAILY 07/26/23 Unkn own History nystatin 100,000 unit/gram topical 1 applic topical BI D #30 grams 08/20/23 Unknown Rx powder diclofenac sodium 1 % topical gel 2.25 inch topical TI D #100 grams 12/19/24 Unknown Rx (Voltaren Arthritis Pain) hydrocodone-acetaminophen 5-325mg 1 tab PO Q8H PRN Shaggy n 3 days #10 12/19/24 Unknown Rx 5mg-325mg TABLETS Allergy/AdvReac Type Severity Reaction Status Date / Time No Known Allergies Allergy Verified 12/19/24 15:45 Family History Mother Asthma Breast cancer Father Kidney disease Sleep apnea Heart disease Brother Hypertension Cancer brain Sleep apnea Surgical History S/P repair of ventral hernia S/P exploratory laparotomy Hx of excision of dermoid cyst History of section History of total hip replacement History of total knee replacement (TKR) History of carpal tunnel release Social History housing: house Smoking Status: Former smoker ROS ROS ED ROS Narrative see HPI EXAM Physical Exam Narrative Exam Narrative: Vital signs: Reviewed General: Alert and orientedx3. No acute distress. BMI of 51.9. HEENT: Head is normocephalic and atraumatic, sinuses nontender, pupils equal round and reactive. Nares are patent. Oropharynx and throat exams normal. Neck: Supple without lymphadenopathy nontender Cardiovascular: Regular rate and rhythm, no murmurs. No rubs or gallops. Normal S1 and S2 Respiratory: Clear to auscultation bilaterally. No wheezes, rales, rhonchi Abdominal: Soft and nontender. Normal bowel sounds. No guarding or rebound. Nonsurgical abdomen Extremities: Mild tenderness to palpation of the right lateral hip. No obvious deformity. No bruising, erythema, warmth, swelling. DP and PT pulses intact bilaterally. Sensation intact bilaterally. Patient able to flex and extend at right hip. Able to ambulate. Skin: No rash or redness. Neurological: Cranial nerves II through XII are grossly intact. Normal strength and sensation. Normal cerebellar function The rest of the physical exam is unremarkable Const Vital Signs: 12/19/24 15:42 12/19/24 19:46 Temperature 98.2 F 98 F Temperature Source Oral Pulse Rate 61 88 Respiratory Rate 14 16 Blood Pressure 175/79 H 132/70 H Blood Pressure Mean 111 90 Pulse Ox 99 99 Oxygen Delivery Method Room Air MDM MDM MDM Narrative Medical decision making narrative: Patient is a 64-year-old female presenting to the emergency department for atraumatic right hip pain. Patient was seen and examined. Vitals are stable. Patient resting in bed comfortably in no acute distress. Given toradol for s ymptomatic control. Patient is able to actively flex and extend at the hip without significant pain. She has no systemic symptoms including fever, chills, nausea or vomiting. Does not feel fatigued or unwell otherwise. I do not think the patient has a septic joint. She had a hip replacement on the right side years ago and has flare ups of pain but states it has not been this bad. Hip x-ray was reviewed by myself, no fractures or dislocations. Radiology read in agreement. Patient is able to ambulate without difficulty. On reevaluation of the patient she is sitting in the chair, states that she ambulated and is now having increased pain again. Has been taking Tylenol at home for pain control. Will prescribe the patient a Percocet here in a few days for home. She states that she has a history of gastric ulcers and cannot take NSAIDs. Will be prescribed Voltaren gel as well. Patient discharged from the Emergency Department. I do not feel that the patient's evaluation reveals any acute reason for admission at this time. I instructed them to either follow-up with their primary care physician or promptly return to the Emergency Department for reevaluation should symptoms worsen or new symptoms develop. I explained what symptoms would indicate the need to return to the emergency department. Shared decision making was used. The patient voiced understanding of the treatment plan and is agreeable with it. Clinical impression Right hip pain History & Record Review Discussion w/independent historian: Patient Radiography X-Ray: Right Hip, Read by ED Physician and No Fracture Diagnostic Testing: Clinical Impression(s) from Imaging Studies Hip/Pelvis X-Ray 12/19/24 16:05 IMPRESSION: No acute fractures. Reading Location: [facility] Discharge Plan Triage Chief Complaint: Lower Extremity Injury ED Provider: Brenna Gutierrez Dx/Rx/DC Orders Clinical Impression: Acute pain of right hip Instructions: Medicine for Pain, ED Hip Strain Prescriptions: New hydrocodone-acetaminophen 5-325 mg tablet 1 tab PO Q8H PRN (Reason: Pain) 3 Days Qty: 10 0RF diclofenac sodium [Voltaren Arthritis Pain] 1 % gel 2.25 inch topical TID Qty: 100 0RF No Action albuterol sulfate 90 mcg/actuation HFA aerosol inhaler 1 puff INHALATION PRN PRN (Reason: Sob &/Or Wheezing) Patient Comments: INHALE 1 TO 2 PUFFS BY MOUTH EVERY 4 TO 6 HOURS NEEDED nystatin 100,000 unit/gram powder 1 applic topical BID Qty: 30 1RF ropinirole 0.5 MG tablet 0.5 mg PO QHS atenolol 50 MG tablet 50 mg PO BID multivitamin 1 EACH tablet 1 ea PO DAILY meloxicam 15 MG tablet 15 mg PO DAILY furosemide 40 MG tablet 40 mg PO DAILY potassium chloride 20 MEQ packet 20 meq PO DAILY latanoprost 0.005 % drops 1 drp ophthalmic (eye) DAILY ondansetron HCl 4 mg tablet 4 mg PO TID PRN levothyroxine 25 mcg tablet 25 mcg PO DAILY brimonidine 0.2 % drops 1 drp RIGHT EYE BID dapagliflozin propanediol [Farxiga] 5 mg tablet 5 mg PO DAILY fluticasone furoate-vilanterol [Breo Ellipta] 200-25 mcg/dose blister with device 1 ea INHALATION DAILY rosuvastatin 10 mg tablet 10 mg PO DAILY budesonide 0.5 mg/2 mL suspension for nebulization 0.5 mg inhalation BID Primary Care Provider: Marianela Sandoval Referrals: Marianela Sandoval MD [Primary Care Provider, Family Practice] - As soon as possible Activity Restrictions/Additional Instructions: You can apply the Voltaren gel 3 times daily onto your right hip. Try to rest and ice your hip. You can take the Percocet if needed every 8 hours for pain control. You need to return if your pain is uncontrolled with the measures at home, you develop fever, chills, feeling unwell. Your evaluation in the Emergency Department did not reveal any acute reason for admission. However, I want to emphasize that you may be early in the course of a disease process or illness even if it is not present. For this reason you should follow-up within 24 hours for reevaluation with either your primary care physician or if n ecessary back here in the Emergency Department. You should return to the Emergency Department immediately if your symptoms worsen or new symptoms develop. Print Language: Nigerien Disposition Disposition: Home, Self Care Discharge Date/Time: 12/19/24 20:09
[2024-12-19] MEDS: Ketorolac 30 MG/ML Syringe IM (16:02)
--- NOTE | 2024-12-19 16:05 | RAD_ITS ---
PROCEDURE: HIP, UNI W/ PELVIS 2-3 VIEWS 12/19/2024 REASON FOR EXAM: PAIN, NO TRAUMA TECHNIQUE: Procedure Code: RAD Modality: DX Procedure: HIP, UNI W/ PELVIS 2-3 VIEWS Laterality: Right COMPARISON: None available. FINDINGS: Bones: No acute fractures or dislocations. Joints: Bilateral total hip arthroplasties with no periprosthetic lucency to suggest loosening or infection. Soft tissues: Soft tissues are unremarkable. Other: Extensive osseous remodeling of the right hip. RAD/HIP, UNI W/ Pelvis 2-3 Views IMPRESSION: No acute fractures. [facility]
--- OUTSIDE RECORDS SUMMARY | 2024-12-19 17:52 | XMS RPT_ITS | CCD ---
Author Organization [facility] Providers Care Sorter Lumber Straightener Name Role Phone LISSETH FULLER Unavailable Unavailable LISSETH FULLER Unavailable Unavailable BENITO SEGURA Unavailable Unavailable SHELL TELLEZ (DIRECTOR DIGITAL) Unavailable Unavailable SHELL TELLEZ (DIRECTOR DIGITAL) Unavailable Unavailable Shazia HOLLAND, Clement Sarmiento Primary Care Provider [phone] DO Jennifer Irizarry Primary Care Provider Dr. Cade Rdz Attending Provider 1([facility])-[phone] CLEMENT MCCRAY Primary Care Unavailable FLY DELUNA Referring Unavailable CLEMENT MCCRAY Primary Care Unavailable FLY DELUNA Attending Unavailable CLEMENT MCCRAY Primary Care Unavailable CLEMENT MCCRAY Primary Care Unavailable DO Jenniefr Irizarry Primary Care Provider [phone] DO Jennifer Irizarry Referring Provider [phone] RAFFY Magana Attending Provider DO Jennifer Irizarry Primary Care Provider DO Jennifer Irizarry Referring Provider [phone] RAFFY Magana Attending Provider DO Jennifer Irizarry Primary Care Provider Dr. Cade Rdz Attending Provider REFERRING, PHY Attending Unavailable REFERRING, PHY Primary Care Unavailable Clement Rendon Attending Unavailable Lori, Chalon Referring Unavailable Lori, Chalon Primary Care Unavailable Lori, Chalon Attending Unavailable Lori, Chalon Referring Unavailable Lori, Chalon Primary Care Unavailable Lori, Chalon Attending Unavailable Lori, Chalon Primary Care Unavailable Cade Rdz Attending Unavailable Lori, Chalon Primary Care Unavailable Medications Current Medications Medication Drug Class(es) Dates Sig (Normalized) Sig (Original) [id number] 200 actuat albuterol 0.09 mg/actuat metered dose inhaler (10 sources) beta2-Adrenergic Agonist Start: 11-13-2019 Albuterol Sulfate Active 1 PUFF INHALATION NEEDED November 13, 2019 12:00am Start: 11-14-2012 take 1-2 puff(s) by inhalation four times daily as needed for wheezing albuterol 90 mcg/actuation Aero Inhale 1-2 Puffs as instructed four times daily as needed (for wheezing and shortness of breath). 1 Inhaler 1 11/14/2012 Active Comment on above: Inhale 1-2 Puffs as instructed four times daily as needed (for wheezing and shortness of breath). atenolol 50 mg oral tablet (10 sources) beta-Adrenergic Milana Start: 03-18-19 13 take 50 mg by mouth twice daily Atenolol Active 50 MG PO TWICE A DAY September 14, 2016 11:00pm Comment on above: Take 1 tablet by my twice daily. azithromycin 250 mg oral tablet (11 sources) Macrolide Antimicrobial Start: 02-06-19 End: 03-02-19 24 Azithromycin (Zithromax Z-Benjamin) 250 mg tablet Active 0 PO .COMPLEX 6 April 09, 2022 1:13pm For 250 mg dose pack: take 500 mg today (day 1), then 250 mg for 4 days (days 2-5) PO dextromethorphan hydrobromide 2 mg/ml / guaiFENesin 20 mg/ml oral solution (2 sources) Uncompetitive O-altnon-P-aspartate Receptor Antagonist, Sigma-1 Agonist Start: 03-02-19 24 take 1 mL by mouth every four hours Dextromethorphan-Gu aifenesin Active 10 ML PO Q4H 500 March 02, 2023 1:00am furosemide 40 mg oral tablet (15 sources) Loop Diuretic Start: 12-11-19 take 40 mg by mouth once daily Furosemide Active 40 MG PO DAILY December 11, 2019 1:00am Start: 09-21-2017 End: 11-13-2019 Furosemide Discontinued PO 2019 11:00pm November 13, 2019 1:15pm gabapentin 300 mg oral capsule (10 sources) Anti-epileptic Agent Start: 06-18-2019 take 300 mg by mouth twice daily Gabapentin Active 300 MG PO TWICE A DAY June 18, 2019 12:00am Start: 08-12-2015 take 1 capsule by [facility] three times daily gabapentin (NEURONTIN) 300 mg capsule Take 1 capsule by mouth three times daily. 0 08/12/2015 Active Comment on above: Take 1 capsule by [facility] three times daily. meloxicam 15 mg oral tablet (10 sources) Nonsteroidal Anti-inflammatory Drug Start: 8 take 15 mg by mouth once daily Meloxicam Active 15 MG PO DAILY August 16, 2017 12:00am Multivitamin preparation (5 sources) Start: 8 Multivitamin Active 1 EACH PO DAILY August 15, 2017 11:00pm Start: 08-16-2017 Multivitamin A ctive 1 EACH PO DAILY August 16, 2017 12:00am naproxen 500 mg oral tablet (5 sources) Nonsteroidal Anti-inflammatory Drug Start: 12-28-2019 take 500 mg by mouth twice daily as needed Naproxen Active 500 MG PO TWICE DAILY NEEDED December 28, 2019 4:18pm potassium chloride 20 meq powder for oral solution (15 sources) Start: 12-11-2019 take 20 mEq by mouth once daily Potassium Chloride Active 20 MEQ PO DAILY December 11, 2019 1:00am Start: 06-18-2019 End: 11-13-2019 Potassium Chloride Discontin ued MEQ PO June 18, 2019 12:00am November 13, 2019 2:15pm Start: 09-21-2017 KLOR-CON M20 2 0 mEq tablet rOPINIRole 0.5 mg oral tablet (10 sources) Nonergot Dopamine Agonist Start: 03-04-2013 take 0.5 mg by mouth at bedtime Ropinirole Active 0.5 MG PO AT BEDTIME September 14, 2016 11:00pm Comment on above: Take 1 tablet by my . Take 2 hrs before bed for restless legs. Take 1/2 tab nightly x2 days, then can increase to 1 tab daily. Completed/Discontinued Medications Medication Drug Class(es) Dates Sig (Normalized) Sig (Original) acetaminophen 500 mg oral tablet (5 sources) Start: 01-23-2017 take 2 tablets by mouth every eight hours acetaminophen (TYLENOL EXTRA STRENGTH) 500 mg tablet Take 2 tablets by mouth every 8 hours. 60 tablet 3 01/23/2017 Active Comment on above: Take 2 tablets by [facility] every 8 hours. amoxicillin 500 mg / clavulanate 125 mg oral tablet (5 sources) Penicillin-class Antibacterial Start: 11-13-2019 End: 11-27-2019 take 1 tablet by mouth every twelve hours Amoxicillin-Pot Clavulanate (Augmentin) 500-125 mg tablet Discontinued 1 TABLET PO Q12H November 13, 2019 12:00am November 27, 2019 1:16pm benzonatate 100 mg oral capsule (4 sources) Non-narcotic Antitussive Start: 04-09-2022 End: 04-19-2022 take 100 mg by mouth twice daily Benzonatate Discontinued 100 MG PO TWICE A DAY 24 11April 09, 2022 1:00am April 19, 2022 12:04am brimonidine tartrate 2 mg/ml ophthalmic solution (3 sources) alpha-Adrenergic Agonist Start: 09-17-2022 brimonidine (ALPHAGAN) 0.2 % ophthalmic solution cephalexin 500 mg oral capsule (5 sources) Cephalosporin Antibacterial Start: 08-16-2017 End: 06-18-2019 take 500 mg by mouth every six hours Cephalexin Discontinued 500 MG PO EVERY 6 HOURS August 16, 2017 12:00am June 18, 2019 10:57am fluticasone / salmeterol (3 sources) Corticosteroid, beta2-Adrenergic Agonist Start: 09-18-2022 fluticasone-salmet cady (ADVAIR) 500-50 mcg/dose dsdv latanoprost 0.05 mg/ml ophthalmic solution (5 sources) Prostaglandin Analog Start: 03-09-2021 take 1 drop(s) into the eye(s) once daily at bedtime latanoprost (XALATAN) 0.005 % ophthalmic solution Use 1 Drop in both eyes daily at bedtime. 0 03/09/2021 Active Start: 03-09-2021 take 1 drop(s) into the eye(s) once daily at bedtime latanoprost (XALATAN) 0.005 % ophthalmic solution Use 1 Drop in both eyes daily at bedtime. 0 03/09/2021 Active Comment on above: Use 1 Drop in both e yes daily at bedtime. methocarbamol 500 mg oral tablet (5 sources) Muscle Relaxant Start: 8 methocarbamol (ROBAXIN) 500 mg tablet predniSONE 20 mg oral tablet (15 sources) Start: 4 End: take 60 mg by mouth once daily Prednisone Discontinued 60 MG PO DAILY 15 March 02, 2023 1:00am March 07, 2023 1:04am Start: 01-23-2022 End: 04-09-2022 take 10 mg by mouth twice daily Prednisone Discontinued 10 MG PO TWICE A DAY January 23, 2022 1:00am April 09, 2022 2:13pm Start: 02-06-2021 End: 03-02-2023 Prednisone Active 10 MG PO . COMPLEX April 09, 2022 1:15pm Take 4 pills for 3 days, 3 pills for 3 days, 2 pills for 3 days, take 1 pill for 3 days THERAPEUTIC MULTIVITAMIN ORAL TAB (5 sources) Start: 10-27-2004 take 1 tablet by mouth once daily THERAPEUTIC MULTIVITAMIN ORAL TAB Take one(1) tablet daily. 0 10/27/2004 Active Comment on above: Take one(1) tablet d aily. vitamin b6 100 mg oral tablet (10 sources) Start: 08-16-2017 End: 11-13-2019 take 100 mg by mouth once daily Pyridoxine (Vitamin B6) Discontinued 100 MG PO DAILY August 16, 2017 12:00am November 13, 2019 2:15pm Comment on above: DAILY Problems Active Problems Problem Classification Problem Date Documented Da te Episodic/Chronic Asthma (10 sources) Asthma; Translations: [Unspecified asthma, uncomplicated] Onset: 11-01-2022 12-28-2019 Chronic Chronic obstructive pulmonary disease and bronchiectasis (5 sources) Bronchitis; Translations: [Bronchitis, not specified as acute or chronic] 02-06-2021 Episodic Deficiency and other anemia (10 sources) Anemia; Translations: [Anemia, unspecified] 05-30-2012 Episodic Disorders of lipid metabolism (5 sources) Hyperlipidemia; Translations: [Hyperlipidemia, unspecified] Onset: 04-07-2009 2009 Chronic Essential hypertension (11 sources) Hypertensive disorder; Translations: [Essential (primary) hypertension] Onset: 12-01-2024 2009 Chronic Influenza (4 sources) Influenza due to Influenza A virus; Translations: [Influenza due to other identified influenza virus with other respiratory manifestations] 01-23-2022 Episodic Mood disorders (5 sources) Depressive disorder; Translations: [Depression] 12-28-2019 Chronic Osteoarthritis (20 sources) Unilateral primary osteoarthritis, left hip; Translations: [Arthritis] Onset: 08-25-2011 2009 Chronic Other connective tissue disease (5 sources) History of total knee arthroplasty; Translations: [Presence of unspecified artificial knee joint] 12-25-2019 Chronic Other connective tissue disease (10 sources) History of total hip arthroplasty; Translations: [Presence of unspecified artificial hip joint] Onset: 10-26-2016 01-24-2017 Chronic Other connective tissue disease (5 sources) History of bilateral total knee replacement; Translations: [Presence of artificial knee joint, bilateral] Onset: 10-26-2016 10-26-2016 Chronic Other connective tissue disease (5 sources) Plantar fasciitis; Translations: [Plantar fascial fibromatosis] 12-29-2019 Episodic Other hereditary and degenerative nervous system conditions (5 sources) Restless legs; Translations: [Restless legs syndrome] 12-25-2019 Chronic Other hereditary and degenerative nervous system conditions (1 source) Restless legs syndrome; Translations: [Restless legs syndrome (RLS)] Onset: 11-01-2022 Chronic Other non-traumatic joint disorders (1 source) Pain in right shoulder; Translations: [Pain in right shoulder] Onset: 12-08-2024 Episodic Other nutritional; endocrine; and metabolic disorders (5 sources) Morbid obesity; Translations: [Morbid (severe) obesity due to excess calories] 12-25-2019 Chronic Other nutritional; endocrine; and metabolic disorders [...] neoplasm of breast] Onset: 05-30-2012 08-17-2022 Episodic Other skin disorders (5 sources) Infection of sebaceous cyst; Translations: [Sebaceous cyst] 12-28-2019 Episodic Other upper respiratory infections (6 sources) Upper respiratory infection; Translations: [Acute upper respiratory infection, unspecified] 04-09-2022 Episodic Spondylosis; intervertebral disc disorders; other back problems (5 sources) Lumbosacral spondylosis without myelopathy; Translations: [Spondylosis without myelopathy or radiculopathy, lumbosacral region] Onset: 08-30-2016 08-30-2016 Chronic Spondylosis; intervertebral disc disorders; other back problems (15 sources) Backache; Translations: [Dorsalgia, unspecified] Onset: 05-28-2008 2009 Episodic Thyroid disorders (1 source) Hypothyroidism, unspecified; Translations: [Hypothyroidism, unspecified] Onset: 03-27-2024 Chronic Unclassified (1 source) Unknown / UNK(Unknown) Onset: 01-16-2017 Past or Other Problems Problem Classification Problem Date Documented Da te Episodic/Chronic Diabetes mellitus without complication (5 sources) Impaired fasting glycemia; Translations: [Impaired fasting glucose] Onset: 04-07-2009 2009 Episodic Other non-traumatic joint disorders (5 sources) Hip pain; Translations: [Pain in unspecified hip] Onset: 03-27-2011 03-27-2011 Episodic Results Test Name Value Interpretation Reference Range Facility Orthopedic Visit Reporton Orthopedic Visit Report [facility] [address] [place] [address] OFFICE VISIT Date of Service: 12/08/24 MR#: [id number] Acct: [id number] Name: MARITZA MIR Rep #: [id number] : 1960 Provider: Dr. Clement vanessa MD Age/Sex: 64/F Location: [facility] [place].[facility] Status: Signed with Addenda ADDENDUM by ALBERT Manning on 12/08/24 at 1118 Office Procedure Documentation entered by Kiesha Manning MA 12/08/24 11:18: Ortho Injections Injections Yes Subacromial Injection Right Is this a patient provided medication?: No Details: Obtained consent for injection. Under sterile conditions, injected the patients right shoulder with 2cc Kenalog, and 4cc Bupivacaine. The patient tolerated the injection well without any noted complication. Patient should call our office if redness develops, pain worsens or if they have any concerns. Office Meds Kenalog 40 mg/mL suspension for injection Performing Provider: Clement Rendon MD Performing Location: [facility] Administered by: Clement Rendon MD on 12/08/24 11:11 Dose Route Admin Location Dispensed Lot Number Expiration Date Package NDC NDC Relocation Manager 40 mg intra-articular right shoulder 1 mL [id number] 02/05/26 16210-487-88 [id number] [facility] Date ____ cc: * Signed Intake Vital Signs 07/27/23 11:04 12/08/24 10:30 Height 5 ft 8 in 5 ft 8 in Weight: 345 lb BMI 52.4 Intake Visit Reasons: RIGHT SHOULDER Chief Complaint: Right shoulder pain Accompanied by: Self Is patient in pain?: Yes Pain scale (1-10): 5 Allergies No Known Allergies Allergy (Verified 12/08/24 10:32) Medications ???Medication ???Instructions ???Recorded ???Confirmed ???Type atenolol 50 mg tablet 50 mg PO BID 09/15/16 12/08/24 His tory ropinirole 0.5 mg tablet 0.5 mg PO QHS 09/15/16 12/08/24 Hi story meloxicam 15 mg tablet 15 mg PO DAILY 08/16/17 12/08/24 H istory multivitamin 1 ea PO DAILY 08/16/17 12/08/24 Hi story albuterol sulfate 90 mcg/actuation 1 puff inhalation PRN PRN Sob / Or 11/13/19 12/08/24 History aerosol inhaler Wheezing furosemide 40 mg tablet 40 mg PO DAILY 12/11/19 12/08/24 H istory potassium chloride 20 mEq oral 20 meq PO DAILY 12/11/19 12/08/24 History packet brimonidine 0.2 % eye drops 1 drp RIGHT EYE BID 07/26/2312/08 History budesonide 0.5 mg/2 mL suspension 0.5 mg inhalation BID sob 2 4 12/08/24 History for nebulization dapagliflozin propanediol 5 mg 5 mg PO DAILY 07/26/23 12/08/24 Hi story tablet (Farxiga) fluticasone furoate 200 1 ea inhalation DAILY 07/26/2304/29 History mcg-vilanterol 25 mcg/dose inhalation powder (Breo Ellipta) latanoprost 0.005 % eye drops 1 drp ophthalmic (eye) DAILY 07/2512/08/24 History levothyroxine 25 mcg tablet 25 mcg PO DAILY 07/26/23 12/08/24 History ondansetron HCl 4 mg tablet 4 mg PO TID PRN 07/26/23 12/08/24 History rosuvastatin 10 mg tablet 10 mg PO DAILY 07/26/23 12/08/24 H istory nystatin 100,000 unit/gram topical 1 applic topical BID #30 grams 0 08/20/23 12/08/24 Rx powder Have you fallen in the past year?: No PFSH Medical History Right shoulder pain Influenza A Morbid obesity Depression Restless leg Anemia Back pain Asthma Arthritis HTN (hypertension) Surgical History S/P repair of ventral hernia S/P exploratory laparotomy Hx of excision of dermoid cyst History of section History of total hip replacement History of total knee replacement (TKR) History of carpal tunnel release Family History Mother Asthma Breast cancer Father Kidney disease Sleep apnea Heart disease Brother Hypertension Cancer brain Sleep apnea Social History Smoking Status: Former smoker HPI RIGHT SHOULDER Details: This documentation accurately reflects the service provided and the decisions made by me, Dr. Clement Rendon MD 12/08/24 7273. Part of today???s visit was documented by [ ], acting as scribe. MARITZA MIR is a 64 year old F here today for R shoulder pain. NEED XR. 1 year, worse in 6 months. had cortisone injection 3 years ago, helped rajindery. anterior shoulder pain. worse with lifting, worse at night. RHD. worked at [employer] 29 years, but just retired. No physical therapy. Has tried some activity modifications. Interested in a cortisone injection. no trauma. Supplemental Info R shoulder xr 4 view -moderate AC joint arthritis. Mild signs of glenohum (more content not included)... Normal [facility] Shoulder min 2 Viewson 12-08 Shoulder min 2 Views [facility] Imaging Services [address] [place], [place] [id number] Shoulder min 2 Views MR#: [id number] Acct: [id number] Name: MARITZA MIR Rep #: [id number] : 1960 F 64 From: [place] PCP: Dr. Marianela Sandoval MD Status: DEP AMB Study: Shoulder min 2 Views Date of Exam: 12/08/24 Exam# [id number] Ordering Dr: Clement Rendon MD PROCEDURE: SHOULDER MIN 2 VIEWS 12/08/2024 REASON FOR EXAM: PAIN X 6 MONTHS, NKI TECHNIQUE: Procedure Code: RADSH Modality: DX Procedure: SHOULDER MIN 2 VIEWS Laterality: Right. COMPARISON: None. RAD/Shoulder min 2 Views IMPRESSION: Moderate right acromioclavicular joint degenerative changes are seen, with inferior distal clavicular osteophytosis. Degenerative changes about the right humeral head greater tuberosity further suggest the presence of chronic rotator cuff tear.. The right glenohumeral joint demonstrates minimal degenerative changes, without associated joint narrowing. No acute fracture or dislocation is seen. Reading Location: [place] [address] CC: Dr. Marianela Sandoval MD; Dr. Clement Rendon MD Steel Box Toe Inserter: Signed Normal [facility] Comprehensive Metabolic Prof ilon 11-19-2024 Albumin [Mass/Vol] 4.1 g/dL Normal 3.4-4.8 [facility] Comment on above: Order Comment: Order Date: 11/18/24 Order Info: [id number] - CMP Order Info: [id number] - LIPID Order Info: [id number] - TSH Performed By: #### L 500.4930, L501.9520, L500.4050, L501.9987 #### [facility] [address] [place], [address] Albumin/Globulin [Mass ratio] 1.3 {ratio} Normal 0.9-2.4 [facility] Comment on above: Order Comment: Order Date: 11/18/24 Order Info: [id number] - CMP Order Info: [id number] - LIPID Order Info: 3 - TSH Performed By: #### L 500.4100, L501.9520, L500.4050, L501.9985 #### [facility] [address] [place], [address] ALK PHOS 71 U/L Normal 35-104 [facility] Comment on above: Order Comment: Order Date: 11/18/24 Order Info: [id number] - CMP Order Info: - LIPID Order Info: 3 - TSH Performed By: #### L 500.4100, L501.9520, L500.4050, L501.9985 #### [facility] [address] [place], [address] ALT [Catalytic activity/Vol] 9 U/L Normal <=34 [facility] Comment on above: Order Comment: Order Date: 11/18/24 Order Info: [id number] - CMP Order Info: [id number] - LIPID Order Info: 3 - TSH Performed By: #### L 500.4100, L501.9520, L500.4050, L501.9985 #### [facility] [address] [place], [address] AST [Catalytic activity/Vol] 21 U/L Normal <=31 [facility] Comment on above: Order Comment: Order Date: 11/18/24 Order Info: [id number] - CMP Order Info: [id number] - LIPID Order Info: 3 - TSH Performed By: #### L 500.4100, L501.9520, L500.4050, L501.9985 #### [facility] [address] [place], [address] Bilirubin [Mass/Vol] 0.28 mg/dL Normal 0.00-1.30 [facility] Comment on above: Order Comment: Order Date: 11/18/24 Order Info: [id number] - CMP Order Info: - LIPID Order Info: [id number] - TSH Performed By: #### L 500.4100, L501.9520, L500.4050, L501.9985 #### [facility] [address] [place], [address] BUN/CRE 16.3 RATIO Normal 10-20 [facility] Comment on above: Order Comment: Order Date: 11/18/24 Order Info: [id number] - CMP Order Info: - LIPID Order Info: [id number] - TSH Performed By: #### L 500.4100, L501.9520, L500.4050, L501.9985 #### [facility] [address] [place], [address] Calcium [Mass/Vol] 9.4 mg/dL Normal 7.6-11.0 [facility] Comment on above: Order Comment: Order Date: 11/18/24 Order Info: [id number] - CMP Order Info: - LIPID Order Info: [id number] - TSH Performed By: #### L 500.4100, L501.9520, L500.4050, L501.9985 #### [facility] [address] [place], [address] Chloride [Moles/Vol] 102 mmol/L Normal 98-108 [facility] Comment on above: Order Comment: Order Date: 11/18/24 Order Info: [id number] - CMP Order Info: - LIPID Order Info: [id number] - TSH Performed By: #### L 500.4100, L501.9520, L500.4050, L501.9985 #### [facility] [address] [place], [address] CO2 [Moles/Vol] 26.6 mmol/L Normal 21.0-32.0 [facility] Comment on above: Order Comment: Order Date: 11/18/24 Order Info: [id number]- - CMP Order Info: - LIPID Order Info: [id number] - TSH Performed By: #### L 500.4100, L501.9520, L500.4050, L501.9985 #### [facility] [address] [place], [address] Creatinine [Mass/Vol] 1.26 mg/dL High 0.70-1.20 [facility] Comment on above: Order Comment: Order Date: 11/18/24 Order Info: [id number] - CMP Order Info: - LIPID Order Info: [id number] - TSH Performed By: #### L 500.4100, L501.9520, L500.4050, L501.9985 #### [facility] [address] [place], [address] GAP 9 Normal 5-15 [facility] Comment on above: Order Comment: Order Date: 11/18/24 Order Info: [id number] - CMP Order Info: - LIPID Order Info: [id number] - TSH Performed By: #### L 500.4100, L501.9520, L500.4050, L501.9985 #### [facility] [address] [place], [address] GFR/1.73 sq M.predicted among non-blacks MDRD (S/P/Bld) [Vol rate/Area] 48 mL/min/{1.73_m2} Low >60 [facility] Comment on above: Order Comment: Order Date: 11/18/24 Order Info: [id number] - CMP Order Info: - LIPID Order Info: 3 - TSH Result Comment: mL/m in/1.73m2 CKD-EPI Creatinine Equation (2020) Performed By: #### L 500.4100, L501.9520, L500.4050, L501.9985 #### [facility] [address] [place], [address] Globulin (S) [Mass/Vol] 3.3 g/dL Normal 2.2-4.2 [facility] Comment on above: Order Comment: Order Date: 11/18/24 Order Info: [id number] - CMP Order Info: - LIPID Order Info: 3 - TSH Performed By: #### L 500.4100, L501.9520, L500.4050, L501.9985 #### [facility] [address] [place], [address] Glucose [Mass/Vol] 115 mg/dL High 70-99 [facility] Comment on above: Order Comment: Order Date: 11/18/24 Order Info: [id number] - CMP Order Info: - LIPID Order Info: [id number] - TSH Performed By: #### L 500.4100, L501.9520, L500.4050, L501.9985 #### [facility] [address] [place], [address] Potassium [Moles/Vol] 4.5 mmol/L Normal 3.3-5.1 [facility] Comment on above: Order Comment: Order Date: 11/18/24 Order Info: [id number] - CMP Order Info: - LIPID Order Info: 3 - TSH Performed By: #### L 500.4100, L501.9520, L500.4050, L501.9985 #### [facility] [address] [place], [address] Sodium [Moles/Vol] 138 mmol/L Normal 133-145 [facility] Comment on above: Order Comment: Order Date: 11/18/24 Order Info: 07 - CMP Order Info: - LIPID Order Info: 3 - TSH Performed By: #### L 500.4100, L501.9520, L500.4050, L501.9985 #### [facility] [address] [place], [address] T PROT 7.4 g/dL Normal 5.9-8.4 [facility] Comment on above: Order Comment: Order Date: 11/18/24 Order Info: [id number] - CMP Order Info: [id number] - LIPID Order Info: [id number] - TSH Performed By: #### L 500.4100, L501.9520, L500.4050, L501.9985 #### [facility] [address] [place], [address] Urea nitrogen [Mass/Vol] 21 mg/dL High 4-19 [facility] Comment on above: Order Comment: Order Date: 11/18/24 Order Info: [id number] - CMP Order Info: [id number] - LIPID Order Info: [id number] - TSH Performed By: #### L 500.4100, L501.9520, L500.4050, L501.9985 #### [facility] [address] [place], [address] Hemoglobin A1con 11-19-2024 HbA1c (Bld) [Mass fraction] 6.4 % High <=5.6 [facility] Comment on above: Order Comment: Order Date: 11/18/24 Order Info: [id number] - A1C Result Comment: Norm al < 5.7 % Prediabetic 5.7 - 6.4 % Diabetic >or= 6.5 % Please note range changes. Performed By: #### L 500.4100, L501.9520, L500.4050, L501.9985 #### [facility] [address] [place], [address] Lipid Profileon 11-19-2024 CHOL:HDL 1.86 Normal [facility] Comment on above: Order Comment: Order Date: 11/18/24 Order Info: [id number] - CMP Order Info: [id number] - LIPID Order Info: [id number] - TSH Performed By: #### L 500.4100, L501.9520, L500.4050, L501.9985 #### [facility] [address] [place], [address] Cholesterol [Mass/Vol] 129 mg/dL Normal <=200 [facility] Comment on above: Order Comment: Order Date: 11/18/24 Order Info: [id number] - CMP Order Info: - LIPID Order Info: [id number] - TSH Result Comment: Chol esterol level, Desirable <200 mg/dL Borderline high cholesterol 200-239 mg/dL High cholesterol >=240 mg/dL Recommendations of the NCEP Adult Treatment Panel for the following risk-cutoff thresholds for the [place] population. Performed By: #### L 500.4100, L501.9520, L500.4050, L501.9985 #### [facility] [address] [place], [address] Cholesterol in HDL [Mass/Vol] 70 mg/dL Normal [facility] Comment on above: Order Comment: Order Date: 11/18/24 Order Info: [id number] - CMP Order Info: - LIPID Order Info: [id number] - TSH Result Comment: Christine onal Cholesterol Education Program (NCEP) guidelines: <40 mg/dL: Low HDL-cholesterol (major risk factor for CHD) >= 60 mg/dL: High HDL-cholesterol (negative risk factor for CHD) HDL-cholesterol is affected by a number of factors, e.g. smoking, exercise, hormones, sex and age. Performed By: #### L 500.4100, L501.9520, L500.4050, L501.9985 #### [facility] [address] [place], [address] Cholesterol in LDL [Mass/Vol] 34 mg/dL Normal [facility] Comment on above: Order Comment: Order Date: 11/18/24 Order Info: [id number] - CMP Order Info: - LIPID Order Info: [id number] - TSH Result Comment: Bord fsxguf=572-204 mg/dL Higher Ecww=056 mg/dL or greater Friedwald Equation for LDL-C Performed By: #### L 500.4100, L501.9520, L500.4050, L501.9985 #### [facility] [address] [place], [address] Cholesterol in VLDL [Mass/Vol] 25 mg/dL Normal 5-40 [facility] Comment on above: Order Comment: Order Date: 11/18/24 Order Info: [id number] - CMP Order Info: [id number] - LIPID Order Info: 3 - TSH Performed By: #### L 500.4100, L501.9520, L500.4050, L501.9985 #### [facility] [address] [place], [address] Triglyceride [Mass/Vol] 127 mg/dL Normal [facility] Comment on above: Order Comment: Order Date: 11/18/24 Order Info: [id number] - CMP Order Info: [id number] - LIPID Order Info: [id number] - TSH Result Comment: The drugs N-Acetylcysteine and Metamizole may falsely depress this assay. Normal range: <150 mg/dL Borderline High: 150-199 mg/dL High: 200-499 mg/dL Very High: >500 mg/dL Performed By: #### L 500.4100, L501.9520, L500.4050, L501.9985 #### [facility] [address] [place], [address] Thyroid Stim Hormone (TSH)on 11-19-2024 TSH 2.720 uIU/mL Normal 0.300-4.20 0 [facility] Comment on above: Order Comment: Order Date: 11/18/24 Order Info: [id number] - CMP Order Info: [id number] - LIPID Order Info: [id number] - TSH Performed By: #### L 500.4100, L501.9520, L500.4050, L501.9985 #### [facility] [address] [place], [address] Vitamin D,25 Hydroxyon 11-19 Vitamin D 25-OH 40.7 ng/mL Normal 30-100 [facility] Comment on above: Order Comment: Order Date: 11/18/24 Order Info: [id number] - CMP Order Info: [id number] - LIPID Order Info: [id number] - TSH Result Comment: Piedad min D Status Deficiency: <20 ng/mL (50nmol/L) Insufficiency: 20-30 ng/mL (50-75 nmol/L) Sufficiency: 30-100 ng/mL (75-250 nmol/L) Toxicity: >100 ng/mL (>250 nmol/L) Performed By: #### L 506.1001 #### [facility] [address], [address] XR SPINE LUMBOSACRAL 2 OR 3 VIEWSon 05-26-2024 XR SPINE LUMBOSACRAL 2 OR 3 VIEWS ORIGINAL EXAMINATION: AP and lateral 3 XRAY VIEWS OF THE lumbosacral SPINE05/24/2024 1:36 pm COMPARISON: None HISTORY: ORDERING SYSTEM PROVIDED HISTORY: Reason for Exam: PAIN, lower back pain, arthritis FINDINGS: There are rudimentary T12 ribs. 5 lumbar-type vertebral bodies show normal height with no obvious acute fracture or compression deformity. There is about 11 mm of L4-5 anterolisthesis. Spondylolysis is not excluded at this level. There is moderate disc space narrowing at L4-5 and L5-S1 with endplate spurring and facet arthropathy. Only mild degenerative changes at other levels. No obvious sacral lesion. Symmetric SI joints. IMPRESSION: Lower lumbar degenerative changes with grade 2 L4-5 anterolisthesis. Consider oblique radiographs and flexion and extension views. Interpreted by: Hilton Marr MD Preliminary Report By: Hilton Marr MD Electronically signed By Hilton Marr MD Dictated Date: 05/26/2024 12:29:31 PM Prelim Date: 05/26/2024 12:31:03 PM Sign Date: 05/26/2024 12:31:03 PM Ordering Provider: MARLENY REFERRING Normal [facility] Thyroid Stim Hormone (TSH)on 03-13-2024 TSH 2.900 uIU/mL Normal 0.358-3.74 0 [facility] Comment on above: Performed By: #### L 501.9593 #### [facility] [address] [place], [address] Basophil percentageOrdered B y: Jennifer Irizarry on 05-09-2023 Basophil percentage 3.9 mg/dL 2.5-4.[address] [facility] Chloride [Moles/Vol] 108 mmol/L 98-107 [facility] Glucose [Mass/Vol] 91 mg/dL 74-106 [facility] Potassium [Moles/Vol] 4.7 mmol/L 3.5-5.1 [facility] Sodium [Moles/Vol] 139 mmol/L 136-145 [facility] - Chemistry and C hemistry - challengeOrdered By: Jennifer Irizarry on 05-09-2023 CO2 [Moles/Vol] 27.0 mmol/L 21.0-32.0 [facility] Urea nitrogen/Creatinine [Mass ratio] 17.4 mg/mg 10-20 [facility] No Panel InformationOrdered By: Jennifer Irizarry on 05-09-2023 Estimated GFR (MDRD) Amer 50 mL/min >60 [facility] Comment on above: GFR Calc Estimated GFR (MDRD) Non-Af Amer 41 mL/min >60 [facility] Comment on above: Non- GFR Calc Free Triiodothyronine (T3) pg/dL 2.5 pg/mL 2.18-3.98 [facility] Thyroglobulin Antibody 23.7 IU/mL 0.0-0.9 [facility] Comment on above: Thyroglobulin Antibo dy measured by Paramjit CoulterMethodologyIt should be noted that the presence of thyroglobulinantibodies may not be pathogenic nor diagnostic, especiallyat very low levels. The assay life enrichment manager has found thatfour percent of individuals without evidence of thyroiddisease or autoimmunity will have positive TgAb levels upto 4 IU/mL.Performed at: [address] [id number] Director: Dusty Parker MD, Phone: [phone] at: [facility] [id number] [place], [place] [id number] Director: Danie Conklin PhD, Phone: [phone] Serum or plasma calcium cliff urement (mass/volume)Ordered By: Jennifer Irizarry on 05-09-2023 Calcium [Mass/Vol] 9.2 mg/dL 8.5-10.1 [facility] Serum or plasma creatinine m easurement (mass/volume)Ordered By: Jennifer Irizarry on 05-09-2023 Creatinine [Mass/Vol] 1.38 mg/dL 0.55-1.02 [facility] Comment on above: The validity of the calculated GFR & GFRAA in patients over 70 years has not been determined. Clinical correlation is essential. Serum or plasma thyroperoxid ase antibody assay (units/volume)Ordered By: Jennifer Irizarry on 05-09-2023 TPO Ab Qn [IU]/mL 0-34 [facility] Serum or plasma urea nitroge n measurement (mass/volume)Ordered By: Jennifer Irizarry on 05-09-2023 Urea nitrogen [Mass/Vol] 24 mg/dL 7-18 [facility] Thin prep Papanicolaou smear with manual screeningOrdered By: Jennifer Irizarry on 05-09-2023 Thin prep Papanicolaou smear with manual screening 3.8 g/dL 3.2-5.0 [facility] Thin prep Papanicolaou smear with manual screening 1.00 ng/dL 0.76-1.46 [facility] Thyroid stimulating immunogl obulins detectionOrdered By: Jennifer Irizarry on 05-09-2023 Thyroid stimulating immunoglobulins Ql (S) <0.10 IU/L 0.00-0.55 [facility] Absolute lymphocyte countOrd ered By: Jennifer Irizarry on 04-06-2023 Lymphocytes Auto (Unsp spec) [#/Vol] 2.00 10*3/uL 0.83-4.51 [facility] Automated lymphocyte count a s percentage of total leukocytesOrdered By: Jennifer Irizarry on 04-06-2023 Lymphocytes/100 WBC Auto (Unsp spec) 22.9 % 19-41 [facility] Basophil percentageOrdered B y: Jennifer Irizarry on 04-06-2023 Basophils/100 WBC (Bld) 0.6 % 0-1 [facility] Bilirubin [Mass/Vol] 0.30 mg/dL 0.20-1.00 [facility] Comment on above: For patients on eltr ombopag therapy, use of Dim[place] TBIL is not recommended. Chloride [Moles/Vol] 104 mmol/L 98-107 [facility] Cholesterol [Mass/Vol] 219 mg/dL <200 [facility] Comment on above: <200 mg/dL Desirable 200-240 mg/dL Borderline >240 mg/dL High Risk Eosinophils/100 WBC (Bld) 2.9 % 0-5 [facility] Glucose [Mass/Vol] 91 mg/dL 74-106 [facility] Hemoglobin (Bld) [Mass/Vol] 10.0 g/dL 12.0-15.0 [facility] Monocytes/100 WBC (Bld) 10.3 % 0-10 [facility] Neutrophils (Bld) [#/Vol] 5.5 10*3/uL 2.0-7.7 [facility] Neutrophils/100 WBC (Bld) 62.7 % 47-70 [facility] Potassium [Moles/Vol] 4.7 mmol/L 3.5-5.1 [facility] Protein [Mass/Vol] 7.5 g/dL 6.4-8.2 [facility] Sodium [Moles/Vol] 138 mmol/L 136-145 [facility] Triglyceride [Mass/Vol] 240 mg/dL <199 [facility] Comment on above: The drugs N-Acetylcy steine and Metamizole may falsely depress this assay.Serum Triglycerides Reference Interval Normal <150 mg/dL Borderline high 150 - 199 mg/dL High 200 - 499 mg/dL Very High > or = 500 mg/dL WBC (Bld) [#/Vol] 8.7 10*3/uL 4.4-11.0 [facility] Determination of erythrocyte mean corpuscular volume (MCV)Ordered By: Jennifer Irizarry on 04-06-2023 MCV (RBC) [Entitic vol] 88.0 fL 81-99 [facility] Erythrocyte distribution wid th ratioOrdered By: Jennifer Irizarry on 04-06-2023 Erythrocyte distribution width (RBC) [Ratio] 15.4 % 11.6-14.6 [facility] Erythrocyte distribution wid th standard deviationOrdered By: Jennifer Irizarry on 04-06-2023 Erythrocyte distribution width (RBC) [Entitic vol] 49.7 fL 35.1-43.9 [facility] Hematocrit Auto (Bld) [Volum e fraction]Ordered By: Jennifer Irizarry on 04-06-2023 Hematocrit (Bld) [Volume fraction] 32.3 % 37-47 [facility] Immature granulocytes/100 WB C Auto (Bld)Ordered By: Jennifer Irizarry on 04-06-2023 Immature granulocytes/100 WBC (Bld) 0.600 % 0.0-0.9 [facility] Comment on above: IG% - Immature Granu locytes (promyelocytes, myelocytes and metamyelocytes) > 1% indicates that a LEFT SHIFT is Present. Iron measurement (mass/mass) Ordered By: Jennifer Irizarry on 04-06-2023 Iron (Unsp spec) [Mass/Mass] 56 ug/dL 50-170 [facility] - Chemistry and C hemistry - challengeOrdered By: Jennifer Irizarry on 04-06-2023 Albumin/Globulin [Mass ratio] 1.0 {ratio} 0.9-2.4 [facility] ALP [Catalytic activity/Vol] 73 U/L 45-117 [facility] ALT [Catalytic activity/Vol] 21 U/L 13-56 [facility] Cholesterol in HDL [Mass/Vol] 62 mg/dL >40 [facility] Comment on above: The drugs N-Acetylcy steine and Metamizole may falsely depress this assay. Reference Range HDL <40 mg/dL Low HDL Cholesterol HDL >or= 60 mg/dL High HDL Cholesterol Cholesterol in LDL [Mass/Vol] 109 mg/dL 0-130 [facility] CO2 [Moles/Vol] 29.0 mmol/L 21.0-32.0 [facility] Cobalamin (Vitamin B12) [Mass/Vol] 409 pg/mL 211-911 [facility] Ferritin [Mass/Vol] 90 ng/mL 8-[address] [facility] Globulin (S) [Mass/Vol] 3.7 g/dL 2.2-4.2 [facility] Urea nitrogen/Creatinine [Mass ratio] 17.0 mg/mg 10-20 [facility] - Hematology and Cell countsOrdered By: Jennifer Irizarry on 04-06-2023 MCH (RBC) [Entitic mass] 27.2 pg 27.0-32.0 [facility] MCHC (RBC) [Mass/Vol] 31.0 g/dL 32-36 [facility] Nucleated RBC/100 WBC (Bld) [Ratio] 0 % 0-5 [facility] Platelet mean volume (Bld) [Entitic vol] 10.8 fL 6.2-12.0 [facility] Platelets (Bld) [#/Vol] 262 10*3/uL 150-450 [facility] No Panel InformationOrdered By: Jennifer Irizarry on 04-06-2023 Estimated GFR (MDRD) Amer 44 mL/min >60 [facility] Comment on above: GFR Calc Estimated GFR (MDRD) Non-Af Amer 37 mL/min >60 [facility] Comment on above: Non- GFR Calc Total Iron Binding Capacity 283 ug/dL 250-450 [facility] Urine Microalbumin/Creati nine Ratio 23.6 mg/g CRE <30 [facility] VLDL Cholesterol 48 mg/dL 5-40 [facility] RBC Auto (Bld) [#/Vol]Ordere d By: Jennifer Irizarry on 04-06-2023 RBC (Bld) [#/Vol] 3.67 10*6/uL 4.2-5.[address] [facility] Serum or plasma calcium cliff urement (mass/volume)Ordered By: Jennifer Irizarry on 04-06-2023 Calcium [Mass/Vol] 9.3 mg/dL 8.5-10.1 [facility] Serum or plasma creatinine m easurement (mass/volume)Ordered By: Jennifer Irizarry on 04-06-2023 Creatinine [Mass/Vol] 1.53 mg/dL 0.55-1.02 [facility] Comment on above: The validity of the calculated GFR & GFRAA in patients over 70 years has not been determined. Clinical correlation is essential. Serum or plasma iron saturat ion measurement (mass fraction)Ordered By: Jennifer Irizarry on 04-06-2023 Iron saturation [Mass fraction] 19.8 % 15.0-55.0 [facility] Serum or plasma thyroid stim ulating hormone (TSH) measurement (units/volume)Ordered By: Jennifer Irizarry on 04-06-2023 TSH Qn 3.81 uIU/mL 0.358-3.74 [facility] Serum or plasma urea nitroge n measurement (mass/volume)Ordered By: Jennifer Irizarry on 04-06-2023 Urea nitrogen [Mass/Vol] 26 mg/dL 7-18 [facility] Thin prep Papanicolaou smear with manual screeningOrdered By: Jennifer Irizarry on 04-06-2023 Thin prep Papanicolaou smear with manual screening 3.8 g/dL 3.2-5.0 [facility] Thin prep Papanicolaou smear with manual screening 16 U/L 15-37 [facility] Thin prep Papanicolaou smear with manual screening 5 5-15 [facility] Thin prep Papanicolaou smear with manual screening 22.7 mg/L NO RANGE EST. [facility] Urine creatinine measurement (mass/volume)Ordered By: Jennifer Irizarry on 04-06-2023 Creatinine (U) [Mass/Vol] 96.10 mg/dL NO RANGE EST. [facility] Whole blood hemoglobin A1c/t otal hemoglobin ratio (mass fraction)Ordered By: Jennifer Irizarry on 04-06-2023 HbA1c (Bld) [Mass fraction] 6.2 % 3.8-5.6 [facility] Comment on above: Normal < 5.7 % Predi abetic 5.7 - 6.4 % Diabetic >or= 6.5 % Please note range changes. Basophil percentageOrdered B y: Ellie Stathopoulos on 03-28-2023 Bilirubin [Mass/Vol] 0.30 mg/dL 0.20-1.00 [facility] Comment on above: For patients on eltr ombopag therapy, use of Dim[place] TBIL is not recommended. Chloride [Moles/Vol] 106 mmol/L 98-107 [facility] Cholesterol [Mass/Vol] 207 mg/dL <200 [facility] Comment on above: <200 mg/dL Desirable 200-240 mg/dL Borderline >240 mg/dL High Risk Glucose [Mass/Vol] 105 mg/dL 74-106 [facility] Comment on above: Fasting Glucose resu lt from 100 to 125 mg/dL suggests IMPAIRED HOMEOSTASIS per A.D.A. criteria. Hemoglobin (Bld) [Mass/Vol] 9.5 g/dL 12.0-15.0 [facility] Potassium [Moles/Vol] 4.3 mmol/L 3.5-5.1 [facility] Protein [Mass/Vol] 7.2 g/dL 6.4-8.2 [facility] Sodium [Moles/Vol] 138 mmol/L 136-145 [facility] Triglyceride [Mass/Vol] 94 mg/dL <199 [facility] Comment on above: The drugs N-Acetylcy steine and Metamizole may falsely depress this assay.Serum Triglycerides Reference Interval Normal <150 mg/dL Borderline high 150 - 199 mg/dL High 200 - 499 mg/dL Very High > or = 500 mg/dL WBC (Bld) [#/Vol] 5.1 10*3/uL 4.4-11.0 [facility] Determination of erythrocyte mean corpuscular volume (MCV)Ordered By: Ellie Debi on 03-28-2023 MCV (RBC) [Entitic vol] 88.0 fL 81-99 [facility] Erythrocyte distribution wid th ratioOrdered By: [facility] on 03-28-2023 Erythrocyte distribution width (RBC) [Ratio] 15.2 % 11.6-14.6 [facility] Erythrocyte distribution wid th standard deviationOrdered By: [facility] on 03-28-2023 Erythrocyte distribution width (RBC) [Entitic vol] 48.9 fL 35.1-43.9 [facility] Hematocrit Auto (Bld) [Volum e fraction]Ordered By: [facility] on 03-28-2023 Hematocrit (Bld) [Volume fraction] 31.4 % 37-47 [facility] - Chemistry and C hemistry - challengeOrdered By: [facility] on 03-28-2023 Albumin/Globulin [Mass ratio] 1.1 {ratio} 0.9-2.4 [facility] ALP [Catalytic activity/Vol] 68 U/L 45-117 [facility] ALT [Catalytic activity/Vol] 17 U/L 13-56 [facility] Cholesterol in HDL [Mass/Vol] 63 mg/dL >40 [facility] Comment on above: The drugs N-Acetylcy steine and Metamizole may falsely depress this assay. Reference Range HDL <40 mg/dL Low HDL Cholesterol HDL >or= 60 mg/dL High HDL Cholesterol Cholesterol in LDL [Mass/Vol] 125 mg/dL 0-130 [facility] CO2 [Moles/Vol] 29.0 mmol/L 21.0-32.0 [facility] Globulin (S) [Mass/Vol] 3.5 g/dL 2.2-4.2 [facility] Urea nitrogen/Creatinine [Mass ratio] 16.7 mg/mg 10-20 [facility] - Hematology and Cell countsOrdered By: Ellie Carrera on 03-28-2023 MCH (RBC) [Entitic mass] 26.6 pg 27.0-32.0 [facility] MCHC (RBC) [Mass/Vol] 30.3 g/dL 32-36 [facility] Platelet mean volume (Bld) [Entitic vol] 11.2 fL 6.2-12.0 [facility] Platelets (Bld) [#/Vol] 217 10*3/uL 150-450 [facility] No Panel InformationOrdered By: Ellie Carrera on 03-28-2023 Estimated GFR (MDRD) Amer 43 mL/min >60 [facility] Comment on above: GFR Calc Estimated GFR (MDRD) Non-Af Amer 36 mL/min >60 [facility] Comment on above: Non- GFR Calc VLDL Cholesterol 19 mg/dL 5-40 [facility] RBC Auto (Bld) [#/Vol]Ordere d By: Ellie Carrera on 03-28-2023 RBC (Bld) [#/Vol] 3.57 10*6/uL 4.2-5.[address] [facility] Serum or plasma calcium cliff urement (mass/volume)Ordered By: Ellie Carrera on 03-28-2023 Calcium [Mass/Vol] 9.0 mg/dL 8.5-10.1 [facility] Serum or plasma creatinine m easurement (mass/volume)Ordered By: Ellie Carrera on 03-28-2023 Creatinine [Mass/Vol] 1.56 mg/dL 0.55-1.02 [facility] Comment on above: The validity of the calculated GFR & GFRAA in patients over 70 years has not been determined. Clinical correlation is essential. Serum or plasma urea nitroge n measurement (mass/volume)Ordered By: Ellie Carrera on 03-28-2023 Urea nitrogen [Mass/Vol] 26 mg/dL 7-18 [facility] Thin prep Papanicolaou smear with manual screeningOrdered By: Ellie Carrera on 03-28-2023 Thin prep Papanicolaou smear with manual screening 3.7 g/dL 3.2-5.0 [facility] Thin prep Papanicolaou smear with manual screening 17 U/L 15-37 [facility] Thin prep Papanicolaou smear with manual screening 3 5-15 [facility] Whole blood hemoglobin A1c/t otal hemoglobin ratio (mass fraction)Ordered By: Ellie Carrera on 03-28-2023 HbA1c (Bld) [Mass fraction] 6.5 % 3.8-5.6 [facility] Comment on above: Normal < 5.7 % Predi abetic 5.7 - 6.4 % Diabetic >or= 6.5 % Please note range changes. Ferritin SerPl-mCncon 2022 Ferritin [Mass/Vol] 333.0 ng/mL High 14.7-205.1 [facility] Comment on above: Order Comment: Silvina mendoza Type: BLOOD SPECIMEN Ordering Facility: External Submitter Address: , , Performed By: #### 3 3762-6, 2276-4 #### [facility] CLIA [id number] [address] [place] [address] [place] NT-proBNP SerPl-mCncon 11-01 Natriuretic peptide.B prohormone N-Terminal [Mass/Vol] 399 pg/mL High <125 [facility] Comment on above: Order Comment: Silvina mendoza Type: BLOOD SPECIMEN Ordering Facility: External Submitter Address: , , Performed By: #### 3 3762-6, 2276-4 #### [facility] CLIA [id number] [address] [place] [id number] [facility] CNCAliyah 09-28-2022 [facility] HNO ID: [id number] Author: Coordinator, Mammography Service: ? Author Type: Physician Type: Letter Filed: 10/02/2022 11:34 PM Note Text: September 29, 2022 PID: [id number] Maritza Mir [address] [place] [address] Dear Ms. Mir, We are pleased to [...] report will be kept on file at [facility] as part of your permanent medical record and are available for your continuing care. Thank you for allowing us to help in meeting your health care needs. Sincerely, Dr. Rey Interpreting Radiologist [facility] (Normal over 40) Normal [facility] SCREENINGon 09-27-2022 [facility] SCREENING * * *Final Report* * * DATE OF EXAM: Sep 27 2022 8:13AM [id number] - [facility] SCREENING / PROCEDURE REASON: Encounter for screening mammogram for malignant neoplasm of breast * * * * Physician Interpretation * * * * RESULT: #[id number] - [facility] SCREENING BILATERAL DIGITAL SCREENING MAMMOGRAM WITH CAD: 09/27/2022 HISTORY: Encounter For Screening Mammogram For Malignant Neoplasm Of Breast / Screening Mammogram-Patient reports NO symptoms. /priors available for comparison. RESULT: TECHNIQUE: The study was acquired using full field digital technology and interpreted from soft copy. Current study was also evaluated with a Computer Aided Detection (CAD). Comparison is made to exams dated: 03/23/2021 mammogram and 11/06/2019 mammogram - [facility]. There are scattered fibroglandular elements in both breasts. There are benign calcifications in both breasts. No significant masses, calcifications, or other findings are seen in either breast. There has been no significant interval change. IMPRESSION: BENIGN FINDING There is no mammographic evidence of malignancy. A 1 year screening mammogram is recommended. Elena lewis/karthik:09/28/2022 16:41:43 Kaiawhina(s): DEISI Davis)(M), [facility] letter sent: Normal over 40 Mammogram BI-RADS: 2 Benign finding Multiple national specialty organizations have released breast cancer screening guidelines for women at average risk for developing breast cancer - guidelines that are based on both evidence and opinion, yet differ on when to start and how often to screen for breast cancer. With representation from Breast Imaging, Internal Medicine, Women's Health, Family Medicine, and Medical/Surgical Oncology, the [facility] has carefully reviewed the data and reached the following consensus: 1) All women should engage in shared decision-making with their providers to decide when to start and how often to screen; 2) All women should have the opportunity to start screening mammography at age 40; 3) For women ages 45-55, we recommend annual screening mammograms; 4) For women ages 55 and over, we support both the transition from an annual to a biennial interval if this aligns more with patient's values and preferences, or continuation with annual screening; 5) All women should discuss with their providers when to stop screening mammograms. Steel Box Toe Inserter: Karthik Transcribe Date/Time: Sep 27 2022 7:43A Dictated by: ELENA REY MD This examination was interpreted and the report reviewed and electronically signed by: ELENA REY MD on Sep 28 2022 4:41PM EST [id number] Normal [facility] CNOVon 09-20-2022 CNOV Office Visit (OBGYWM ) MARITZA MIR ([id number]) 1960 F Date Time Provider Department 09/20/22 11:10 AM FLY DELNUA OBGYWM During your visit today, we recorded the following information about you: Blood pressure Weight Height 142/88 162.8 kg 1.727 m Fly Deluna MD 09/20/2022 11:49 AM Signed Maritza is a 61 year old who [...] L3 SAB0 IAB0 Ectopic0 Multiple0 Live Births4 Indian 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 History LMP: 11/17/2009, Ablation Age at Menarche: Age at First : Age at Menopause: Indian Nanny History Comments: Sexual Activity: Yes; Male Contraception: Tubal Ligation PAST MEDICAL HISTORY Diagnosis Date Anemia Asthma Back pain Depression Essential hypertension, benign Generalized osteoarthrosis, unspecified site Dr Fuller-davis Headache(784.0) Hyperlipidemia Impaired fasting glucose Nocturnal leg cramps spasms controlled with requip Obesity, unspecified Snoring PAST SURGICAL HISTORY Procedure Laterality Date ARTHRP ACETBLR/PROX FEM PROSTC AGRFT/ALGRFT 02/24/2011 right hip ARTHRP ACETBLR/PROX FEM PROSTC AGRFT/ALGRFT Left 01/2017 ARTHRP KNE CONDYLEANDPLATU MEDIALANDLAT COMPARTMENTS 11/12 left knee replacement ARTHRP KNE CONDYLEANDPLATU MEDIALANDLAT COMPARTMENTS 03/17/09 right Knee replacement[facility] , low cervical [...] medication updated:Yes EXAM: BP 142/88 Ht 5' 8" (1.73m) Wt 359 lb (162.8kg) LMP 11/17/2009 [...] external genitalia normal, normal Bartholin's glands, urethra, [place]'s glands, no vulvar lesions, no cervical lesions, [...] wt management appointment, has struggeled w/ wt fdc 2) Follow up one year or sooner as needed Fly Deluna MD Referring Provider: SELF [200] Allergies As of Date: 09/20/2022 (No Known Allergies) Date Reviewed: 09/20/2022 Reviewed by: Fly Deluna MD - Fully Assessed Reason for Visit: Yearly Exam [187] Primar (more content not included)... Normal [facility] 08-17-2022 [facility] Telephone (OBGYWM) MARITZA MIR ([id number]) 1960 F Date Time Provider Department 08/17/22 FLY DELUNA OBGYWM During your visit today, we recorded the following information about you: Marta Dodd [facility] 08/17/2022 10:34 AM Signed Patient called requesting a carlin screening to be placed,can be reached at [phone] [facility] 08/17/2022 10:46 AM Signed See pended order below and pt will then be assisted to schedule appointment. Kari Hanks SIDE SEAM MACHINE OPERATORRah Deluna MD 08/18/2022 9:32 AM Signed Please schedule. MD Kari Adams LPN 08/18/2022 10:35 AM Signed Message left asking pt to call the office to schedule mammogram. Kari Hanley [facility] 08/18/2022 3:57 PM Signed 1st attempt left message to return call to schedule annual mammography Roseanne Ramesh [facility] 08/19/2022 2:41 PM Signed 2nd attempt to reach patient to schedule mammogram Allergies As of Date: 08/17/2022 (No Known Allergies) Date Reviewed: 03/23/2021 Reviewed by: Fly Deluna MD - Fully Assessed Reason for Visit: Orders [681] Primary Visit Diagnosis:Encounter for screening mammogram for malignant neoplasm of breast [Z12.31] Order(s):[facility] SCREENING [4085160] Order #: [id number] FUTURE Prescriptions as of 08/19/2022 - latanoprost (XALATAN) 0.005 % ophthalmic solution Use 1 Drop in both eyes daily at bedtime. - furosemide (LASIX) 40 mg tablet - meloxicam (MOBIC) 15 mg tablet - methocarbamol (ROBAXIN) 500 mg tablet - KLOR-CON M20 20 mEq tablet - pyridoxine, vitamin B6, (VITAMIN B6) 100 mg tablet DAILY - acetaminophen (TYLENOL EXTRA STRENGTH) 500 mg tablet Take 2 tablets by mouth every 8 hours. - gabapentin (NEURONTIN) 300 mg capsule Take 1 capsule by mouth three times daily. - rOPINIRole (REQUIP) 0.5 mg tablet Take 1 tablet by mouth. Take 2 hrs before bed for restless legs. Take 1/2 tab nightly x2 days, then can increase to 1 tab daily. - albuterol 90 mcg/actuation Aero Inhale 1-2 Puffs as instructed four times daily as needed (for wheezing and shortness of breath). - atenolol 50 mg tablet Take 1 tablet by mouth twice daily. - THERAPEUTIC MULTIVITAMIN ORAL TAB Take one(1) tablet daily. Problem List As Of Date 08/17/2022 Noted Resolved Essential Hypertension, Benign [I10] Obesity [E66.9] Generalized Osteoarthrosis, Unspecified Site [M* KNEE JOINT REPLACEMENT [Z96.659] 12/12/2007 Lumbago [M54.50] 05/28/2008 Routine Gynecological Examination [Z01.419] 04/07/2009 Class: Chronic Hyperlipidemia [E78.5] 04/07/2009 Impaired Fasting Glucose [R73.01] 04/07/2009 Sciatica [M54.30] 06/29/2010 Hip pain [M25.559] 03/27/2011 Osteoarthrosis, unspecified whether generalized*08/25/2011 Special screening for malignant neoplasms, colo*05/30/2012 Anemia [D64.9] Lumbosacral spondylosis without myelopathy [M47*08/30/2016 History of total knee replacement, bilateral [Z*10/26/2016 Status post total replacement of left hip [Z96.*10/26/2016 Obesity, Class III, BMI >= 40 (morbid obesity) *01/22/2017 OA (osteoarthritis) [M19.90] 01/23/2017 01/24/2017 Osteoarthritis of hip [M16.9] 01/23/2017 01/24/2017 Primary osteoarthritis of left hip [M16.12] 02/15/2017 Encounter Status:Closed by FLY DELUNA on 08/18/22 Normal [facility] XR CHEST 2V FRONTAL/LATon XR CHEST 2V FRONTAL/LAT * * *Final Report* * * DATE OF EXAM: Mar 31 2022 11:06AM WRX 5291 - XR CHEST 2V FRONTAL/LAT / PROCEDURE REASON: sob, asthma * * * * Physician Interpretation * * * * EXAMINATION: CHEST RADIOGRAPH (2 VIEW FRONTAL and LATERAL) CLINICAL HISTORY: Short of breath. Asthma MQ: XC2_6 EXAM DATE/TIME: 03/31/2022 11:06 AM COMPARISON: 12/17/2017 RESULT: Lines, tubes, and devices: None. Lungs and pleura: A few calcifications in the lateral left lung likely granulomas. No effusion is seen. No definite signs of pneumonia. Mild interstitial prominence Cardiomediastinal silhouette: Normal cardiomediastinal silhouette. Bones and soft tissues: Unremarkable. IMPRESSION: Slight interstitial prominence likely related to emphysema and/or chronic change Steel Box Toe Inserter: NEENA Transcribe Date/Time: Mar 31 2022 11:40A Dictated by : GIO MAS MD This examination was interpreted and the report reviewed and electronically signed by: GIO MAS MD on Mar 31 2022 11:40AM EST [id number] Normal [facility] Basic Metabolic Panlon 01-24 Anion gap 10 mmol/L Normal 10-23 [facility] Comment on above: Performed By: #### C BCDIF, IRON, CMP ####[facility] [phone]#### FERR ####[facility] [address] [place], [place] [phone] Calcium 8.7 mg/dL Normal 8.5-10.2 [facility] Comment on above: Performed By: #### C BCDIF, IRON, CMP ####[place] [phone]#### FERR ####[place] [address] Chloride 101 mmol/L Normal 97-105 [facility] Comment on above: Performed By: #### C BCDIF, IRON, CMP ####[place] [phone]#### FERR ####[place] [address] CO2 30 mmol/L Normal 22-30 [facility] Comment on above: Performed By: #### C BCDIF, IRON, CMP ####[place] [phone]#### FERR ####[place] [address] Creatinine 1.00 mg/dL High 0.58-0.96 [facility] Comment on above: Performed By: #### C BCDIF, IRON, CMP ####[place] [phone]#### FERR ####[place] [phone] eGFR (non-black) mL/min/{1.73_m2} Normal >60 [facility] Comment on above: Performed By: #### C BCDIF, IRON, CMP ####[place] [phone]#### FERR ####[address] eGFR (non-black) 58 . Low >60 [facility] Comment on above: Performed By: #### C BCDIF, IRON, CMP ####[place] [phone]#### FERR ####[place] [phone] Glucose mass conc 109 mg/dL High 74-99 [facility] Comment on above: Performed By: #### C BCDIF, IRON, CMP ####[place] [phone]#### FERR ####[place] [phone] Potassium molar conc 4.1 mmol/L Normal 3.7-5.1 [facility] Comment on above: Performed By: #### C BCDIF, IRON, CMP ####[place] [phone]#### FERR ####[place] [phone] Sodium 141 mmol/L Normal 136-144 [facility] Comment on above: Performed By: #### C BCDIF, IRON, CMP ####[place] [phone]#### FERR ####[place] [address] Urea nitrogen 17 mg/dL Normal 7-21 [facility] Comment on above: Performed By: #### C BCDIF, IRON, CMP ####[place] [phone]#### FERR ####[place] [phone] CASE MANAGEMon 01-24-2017 CASE MANAGEM HNO ID: [id number] thor: Courtney Cohn) HouseService: Care ManagementAuthor Type: Social WorkerType: Care Mgt Progress NoteFiled: 01/25/2017 10:24 AMNote Text:CARE MANAGEMENT DISCHARGE NOTESERVICE DATE: 01/25/2017SERVICE TIME: delayed entry LOS: 1 dayAdmission Date: 01/23/2017DISCHARGE ARRANGEMENT (list agency and phone number)Home and Home careProvider: Efraín [facility] cAREGIVER ASSESSMENT:Caregiver is ready, willing and able to meet the patient's needs asrecommended by the inter-professional team? No Caregiver NeededPatient's transition needs and plan for meeting these needs:Does the patient have an acute stroke diagnosis, or has the patient had astroke during this admission? NoHANDOFF COMMUNICATION:[facility] soc date 01/25/17TRANSPORTATION ARRANGEMENTS:ADDITIONAL CONTACT RESOURCES:SIGNATURE: DILIA Bragg PATIENT NAME: Maritza MirDATE: January 25, 2017 : 10:19 AM PAGER/CONTACT #: [facility] [id number] thor: Courtney Stevens) HouseService: Care ManagementAuthor Type: Social WorkerType: Care Mgt Initial AssessmentFiled: 01/24/2017 11:44 AMNote Text:CARE MANAGEMENT: ASSESSMENT AND DISCHARGE PLANSERVICE DATE: 01/24/2017SERVICE TIME: 10;00amPRIQUAIL RUN BE[facility] PHYSICIAN:GENTRY Olivohone: [phone] STATUS: InpatientPOTENTIAL DISCHARGE PLANSHomeHjamaica plain va medical center CareBelchertown State [facility] OT/PTPatient/Wood Furniture Assembler Stated Goals: Ms. Mir tells me her goal is toreturn home at d/c.Needs Prior to Discharge: Discharge Prescriptions;DischargeTranspor tation;Pharmacy Bedside DeliveryHealth Insurance: AnthemLiving Arrangement: HomeLives With: SpouseFinancial Resources: Employed: yesPrimary Contact:Extended Emergency Contact InformationPrimary Emergency Contact: French MirAddress: [address], [place] [address]Phff Klroutcv: SpouseSupportive: YesOther Important Patient Contacts: NoneCAREGIVER ASSESSMENT:Caregiver is ready, willing and able to meet the patient's needs asrecommended by the inter-professional team? No Caregiver NeededPatient's transition needs and plan for meeting these needs: TBD pendingPT/OTDoes the patient have an acute stroke diagnosis, or has the patient had astroke during this admission? NoADVANCE DIRECTIVES:Does Patient Have Advance Directives? No, copies givenDoes Patient Have Concerns About Advance Directives? NoPRIOR TO ADMISSION:Baseline Mental Status: Alert AND Oriented, Person, Place , Time andSituationFunctional Status: IndependentDoes Patient Currently Receive Any Community Services or Home Care? NoneEquipment Prior to Admission: Cane - StraightElevated toilet seatWalkerHEALTH:Health Issues Impacting Discharge Plan: s/p left total hip replacement.Health Literacy Issues: NoPSYCHOSOCIAL:Is the Patient Psychosocially Complex? NoFamily/Patient Understanding of Illness/Diagnosis: Patient voicedunderstanding of surgery and d/c planning needs.Medication Adherence:Do you forget to take your medications? Once per weekHave you ever stopped taking medications because you felt worse? None ofthe timeHave you ever taken less of your medication than what was prescribed byyour doctor? None of the timeIn the past 3 months, have you had issues obtaining one or more of yourmedications? None of the timeAre you interested in bedside delivery of your medications? NoFood Concerns:In the Last Month, Have You had Trouble Getting Food? No trouble gettingfoodDuring the Last Month, Have You Worried Whether Your Food Would Run OutBefore You Had Enough Money to Buy More? NoPsychosocial Needs: NoneUTILIZATION:Last Admission Date: Previous admit date: 02/23/2011Is this Within the Past 30 days? NoHas the Patient Been in a Prison Facility in the Past 30 days? NoFREEDOM OF CHOICE EXPLAINED:Yes Maritza ClarkeFincristianaial Disclosure ProvidedThe patient and/or family has been given the Provider List: YesProvider List: Home CarePreference: [facility].HANDOFF COMMUNICATION:[facility]IGN[facility] DILIA Bragg PATIENT NAME: Maritza MirDATE: January 24, 2017 : 11:32 AM PAGER/CONTACT #: [facility] 01-24-2017 Erythrocyte distribution width Auto Ratio (RBC) 14.1 % Normal 11.5-15.0 [facility] Comment on above: Performed By: #### C BCDIF, IRON, CMP ####[place] [phone]#### FERR ####[address] Av[address] [place] [phone] Erythrocytes (RBC) 3.65 10*6/uL Low 3.90-5.20 [facility] Comment on above: Performed By: #### C BCDIF, IRON, CMP ####[place] [phone]#### FERR ####[place] [phone] Hematocrit (HCT) 34.5 % Low 36.0-46.0 [facility] Comment on above: Performed By: #### C BCDIF, IRON, CMP ####[address] #### FERR ####[place] [phone] Hemoglobin mass conc (Bld) 10.6 g/dL Low 11.5-15.5 [facility] Comment on above: Performed By: #### C BCDIF, IRON, CMP ####[place] [phone]#### FERR ####[place] [phone] MCH 29.0 pG Normal 26.0-34.0 [facility] Comment on above: Performed By: #### C BCDIF, IRON, CMP ####[address] #### FERR ####[place] [phone] MCHC mass conc (RBC) 30.7 g/dL Normal 30.5-36.0 [facility] Comment on above: Performed By: #### C BCDIF, IRON, CMP ####[place] [phone]#### FERR ####[address] [place] [phone] MCV 94.5 fL Normal 80.0-100.0 [facility] Comment on above: Performed By: #### C BCDIF, IRON, CMP ####[place] [phone]#### FERR ####[phone] Platelet mean volume (PMV) 11.5 fL Normal 9.0-12.7 [facility] Comment on above: Performed By: #### C BCDIF, IRON, CMP ####[place] [phone]#### FERR ####[phone] Platelets 189 10*3/uL Normal 150-400 [facility] Comment on above: Performed By: #### C BCDIF, IRON, CMP ####[address] #### FERR ####[place] [phone] WBC (Leukocytes) 7.83 10*3/uL Normal 3.70-11.00 [facility] Comment on above: Performed By: #### C BCDIF, IRON, CMP ####[place] [phone]#### FERR ####[place] [phone] NURSING PROGon 01-24-2017 NURSING PROG HNO ID: [id number] thor: Jona Gay (RnNeal Kirby, RNService: NursingAuthor Type: Registered NurseType: Nursing Progress NoteFiled: 01/24/2017 6:21 PMNote Text: Nursing Progress NotePatient Name: Maritza MirMRN: [id number] Location: [facility]/[id number] D aily Note:DC instructions reviewed with pt and with opportunityfor questions. Verbailzed understatnding of expectations. HL removed.VSS. NO s/s of distress. Scripts and DC instructions handed to patient.This note was completed by: Jona Kirby, RN [facility] NURSING PROG HNO ID: [id number] thor: Elsie ([facility]) Prince, RNService: (none)Author Type: Advance Clinical NurseType: Nursing Progress NoteFiled: 01/24/2017 12:49 PMNote Text: Nursing Progress NotePatient Name: Maritza MirMRN: [id number] Location: [facility]/[id number] D aily Note:Patient attended discharge instruction class for total joints , wheredischarge instructions were reviewed.Education/Teaching points reviewed:Wound care for Silverlon/Mepilex AG - any drainage upon removal notifysurgeonShoweringNutrition Use of ice, no heatNo pillow under the kneeWearing protocol for irene hose/barbara wrapsSwelling (abnormal vs. Normal)Exercises , positioning restrictions for total hipsLevel of activity patient should have daily to decrease post opcomplicationsIncentive spirometer use for home q1-2hrs while awake x1 weekS/S of wound infectionFever greater than 101 and interventionsS/S of DVT/PE and interventionsHome physical therapyF/U careNo submersion of knee or hip in tub or pool for 8-12 weeksMade aware they can activate metal detectorsNo driving while on narcotics and not until cleared by surgeonAny questions or concerns after D/C told to call surgeon's officeIf after hours, told to contact orthopedic resident on callIf any SOB/chest pain call 911Antibiotic and DVT prophylaxisMedication handouts outlining the most common side effects for thefollowing classifications of drugs were reviewed by the pharmacist:Bowel management/constipationOpiod therapy/pain managementAnti inflammatory/pain and swellingTylenol/analgesicAntico agulants/DVT prophylaxisPatient validated understanding of the above instructions.This note was completed by: Elsie Morrison RN [facility] PROGRESSon 01-24-2017 PROGRESS HNO ID: [id number] thor: Benito Plascenciae: General Internal MedicineAuthor Type: PhysicianType: Progress NotesFiled: 01/24/2017 1:15 PMNote Text:INPATIENT PROGRESS NOTESERVICE DATE: 01/24/2017SERVICE TIME: 1:13 PMSUBJECTIVECHIEF COMPLAINT: post op painPRIMARY SERVICE: orthoINTERVAL HPI: seen for medical follow up. Feeling OK, but notes post oppainNo SOB. No chest painCurrent hospital medications:lidocaine 10 mg/mL (1 %) 1-2 mg injection (XYLOCAINE) 0.1-0.2 mLINTRADERMAL PRNlactated ringers infusion 5-30 mL/hr INTRAVENOUS CONTINUOUSscopolamine - VERIFY patch OTHER q 8 Hscopolamine - REMOVE PATCH OTHER ONCEgabapentin 300 mg cap(s) (NEURONTIN) 300 mg ORAL TIDrOPINIRole 0.5 mg tab(s) (REQUIP) 0.5 mg ORAL AT BEDTIMEmetoprolol tartrate (short acting) 50 mg tab(s) (LOPRESSOR) 50 mg ORAL q12 Halbuterol 2.5 mg /3 mL (0.083 %) 2.5 mg (PROVENTIL) 2.5 mg INHALATION q 4H PRNlactated ringers infusion 75 mL/hr INTRAVENOUS CONTINUOUS0.9% NaCl 2-10 mL 2-10 mL INTRAVENOUS q 12 H0.9% NaCl 2-10 mL 2-10 mL INTRAVENOUS q 12 Hmorphine 2 mg injection 2 mg INTRAVENOUS q 2 H PRNoxyCODONE IR 5-10 mg tab(s) (ROXICODONE) 5-10 mg ORAL q 3 H PRNacetaminophen 1,000 mg tab(s) (TYLENOL) 1,000 mg ORAL q 8 Hondansetron 4 mg tab(s) (ZOFRAN) 4 mg ORAL q 6 H PRNondansetron (PF) 4 mg injection (ZOFRAN) 4 mg INTRAVENOUS q 6 H PRNaluminum-magnesium hydroxide-simethicone 200-200-20 mg/5 mL 30 mL(MAALOX,MYLANTA,MAG-AL PLUS) 30 mL ORAL q 2 H PRNascorbic acid (vitamin C) 500 mg tab(s) (VITAMIN C) 500 mg ORAL BID wMEALSdocusate sodium 100 mg cap(s) (COLACE) 100 mg ORAL BID[START ON 01/25/2017] bisacodyl EC 10 mg tab(s) (DULCOLAX) 10 mg ORALDAILYmagnesium hydroxide 400 mg/5 mL 30 mL (MOM) 30 mL ORAL DAILY PRNketorolac 30 mg injection (TORADOL) 30 mg INTRAVENOUS q 6 Henoxaparin 40 mg injection (LOVENOX) 40 mg SUBCUTANEOUS DAILYcyclobenzaprine 5-10 mg tab(s) (FLEXERIL) 5-10 mg ORAL TID PRNOBJECTIVEPHYSICAL EXAM:BP 141/60 Pulse 78 Temp (Src) 98.2 (Oral) Resp 18 Ht 5' 8" (1.73m) Wt 315 lb (142.9kg) SpO2 97% BMI 47.91 kg/(m2). GENERAL: Alert, no distress, cooperativeLUNGS: Lungs clear to auscultation, Good diaphragmatic excursionCARDIAC: Rhythm: regular rate and rhythmABDOMEN: Soft, nontenderDATA:Diagnostic tests reviewed for today's visit:Most recent labsCBC with diff:WBC 7.83 01/24/2017RBC 3.65 01/24/2017Hemoglobin 10.6 01/24/2017Hematocrit 34.5 01/24/2017MCV 94.5 01/24/2017MCH 29.0 01/24/2017MCHC 30.7 01/24/2017RDW-CV 14.1 01/24/2017Platelet Count 189 01/24/2017MPV 11.5 01/24/2017Neut% 54.0 01/04/2017Lymph% 29.9 01/04/2017Mono% 11.6 01/04/2017Eosin% 4.0 01/04/2017Baso% 0.5 01/04/2017Abs Neut (ANC) 2.15 01/04/2017Abs [place] 0.46 01/04/2017Abs Eosin 0.16 01/04/2017Abs Baso <0.03 01/04/2017Glucose (mg/dL)Date Value01/24/2017 109 Potassium (mmol/L)Date Value01/24/2017 4.1 Sodium (mmol/L)Date Value01/24/2017 141 Chloride (mmol/L)Date Value01/24/2017 101 CO2 (mmol/L)Date Value01/24/2017 30 Creatinine (mg/dL)Date Value01/24/2017 1.00 BUN (mg/dL)Date Value01/24/2017 17 Anion Gap (mmol/L)Date Value01/24/2017 10 Calcium (mg/dL)Date Value01/24/2017 8.7 ASSESSMENT/PLANAct jared Problems:POD #1Medically stableHx of HTN. BP stablePlan to continue home medsOK for discharge as per ortho plansSIGNATURE: Benito Segura MD PATIENT NAME: Maritza MirDATE: January 24, 2017 : 1:13 PM PAGER: [phone] [facility] PROGRESS HNO ID: [id number] thor: Nile Griffiths DOService: Orthopaedic SurgeryAuthor Type: ResidentType: Progress NotesFiled: 01/24/2017 8:44 AMNote Text:ORTHOPAEDIC POSTOP PROGRESS NOTESERVICE DATE: 01/24/2017SERVICE TIME: 8:43 AMSUBJECTIVEPatient states that they are comfortableWell Controlled hip pain.Mild incisional pain.OBJECTIVEVITAL SIGNS: BP 108/60 Pulse 65 Temp 36.6 ?C (97.9 ?F) (Oral) Resp16 Ht 172.7 cm (5' 8") Wt (!) 142.9 kg (315 lb) SpO2 95% BMI 47.9kg/z6ENAWYB AND OUTPUT:Intake/Output Summary (Last 24 hours) at 01/24/17 0843Last data filed at 01/24/17 0750 Gross per 24 hourIntake 4197.5 mlOutput 1500 mlNet 2697.5 mlPHYSICAL EXAMINATION:Left Lower Extremity: Dorsalis pedis pulses palpable. Posterior tibial pulses palpable. Dorsi flexion 5/5. Plantar flexion 5/5. Extensor hallucis extension: 5/5. Sensory intact to light touch L1-S1. Dressing clean, dry and intact. Surgical site no drainage.Problem Review and Assessment: Patient monitored, no new events overnight.LABS:Recent Labs HB 10.6*HCT 34.5*DATA:Diagnostic tests reviewed for today's visit:Most recent labs and imaging results.ASSESSMENT/PLANS/P Procedure(s) (LRB):ARTHROPLASTY REPLACE JOINT TOTAL HIP (Left) on 01/23/2017POSTOP PLAN: Physical Therapy evaluationDVT prophylaxis: with aspirin, additional anticoagulant is contraindicateddue to bleeding risk and Intermittent pneumatic compression device (IPCD)Pain controlAntibiotics: Discontinuing Antibiotics after 24 hoursCase Management for discharge planning, discharge todayACTIVE PROBLEM LISTEssential Hypertension, BenignObesityGeneralized Osteoarthrosis, Unspecified SiteKNEE JOINT REPLACEMENTLumbagoRoutine Gynecological ExaminationHyperlipidemiaImpair ed Fasting GlucoseSciaticaHip PainOsteoarthrosis, Unspecified Whether Generalized Or Localized, PelvicRegion and ThighSpecial Screening for Malignant Neoplasms, ColonAnemiaLumbosacral Spondylosis Without Myelopathy (Hcc)History of Total Knee Replacement, BilateralHistory of Hip Replacement, Total, RightObesity, Class III, BMI >= 40 (morbid obesity) ([facility]) E66.01Oa (Osteoarthritis)Osteoarthritis of HipPOST OPERATIVE COMPLICATIONS:Complicated by: uneventful/noneSIGNATURE: Nile Griffiths DO PATIENT NAME: Maritza Romo ClarkeDATE: January 24, 2017 : 8:43 AM PAGER/CONTACT #: [phone] [facility] THERAPY NTon 01-24-2017 THERAPY NT HNO ID: [id number] thor: Diana (Pt) GuddyService: Physical TherapyAuthor Type: Physical TherapistType: Therapy (PT/OT/Speech/Resp)Filed: 01/24/2017 3:44 PMNote Text:Physical Therapy TreatmentSERVICE DATE: 01/24/2017SERVICE TIME: 1431 to 1455ROOM: [id number] Discharge Disposition: Home PTAnticipated Discharge Needs: Physical Assist at HomePhysical Assist at Home for: StairsSupervision at Home due to: Other: See Comment (d/t recent THR surgeyr)Recommended Discharge Equipment: Cane (fitted for and issued cane )PT Recommendations to Nursing: Ambulate without device;Ambulate withdevice;To bathroom;In halls;With assist of 1 person;OOB for mealsAmbulation Device: Wheeled WalkerPT 6 Clicks Score: 22Precautions/Activity Restrictions: Total Hip Replacement;Weight BearingRestrictionsExtremity With Weight Bearing Restricted: Left Lower ExtremityLeft Lower Extremity Weight Bearing Status: WBATTotal Hip Replacement Precautions: PosteriorASSESSMENT :PT progressing as expected. Fitted for and issued cane forstairs. Cleared from PT standpoint for D/C home today with home PT.Tolerated Full Session Without limitationsPhysical Therapy Problem List: Pain;Safety Deficits;Impaired SelfCare;Decreased Activity Tolerance;Decreased Range Of Motion;DecreasedStrength;Functi onal Mobility Impairment;Balance ImpairedPatient /Caregiver Goals: Walk;Go HomeGoals for Plan of Care:Able to perform HEP with: IndependentRolling with: SupervisionTransfer supine to/from sit with: SupervisionTransfer sit to/from stand with: SupervisionAmbulate with: SupervisionDistance: 125 feetDevice: Wheeled WalkerAmbulate up and down curb step with: Stand By AssistanceDevice: WalkerProgress Toward Goals: Progressing as expectedRehab Potential: GoodPLAN:Treatment Frequency (times per week): 7 Current admissionTreatment Interventions: Education;Self Care / Home Management;EnergyConservation Training;Strengthening;Function al Mobility Training;BalanceTrainingPlan of Care developed with: PatientTREATMENT INTERVENTIONS:Therapy Diagnosis: Reduced mobility-otherInterventions Provided: Gait Training (01195);Therapeutic Activity (89010)Therapeutic Activity (94800) Treatment Minutes: 81 unitSkilled Intervention(s): Instructed patient in sit to supine using safe,effective techniqueEducation with POC, precautions, toileting, conservation of energytechniquesGait Training (70128) Treatment Minutes: 151 unitSkilled Intervention(s): Instruction in sit to stand technique with properhand placement and body positioning at edge of bed/chair, Instruction instand to sit technique with LE's touching chair/bed and reaching back forsurface, Instruction in sequencing, gait pattern, Instruction incorrection of gait deviations, Instruction in WB precautions, Instructionin stair negotiation, Instruction in use of equipment, cues for sequenceand pattern and posture, balance, safety, equipmentTotal Timed Code Treatment Minutes: 23Total Treatment Time (minutes): 23SUBJECTIVE:Current Hospital Course: Chart reviewed and no significant medical updatesrelevant to therapy were notedPatient Report: "I just wish someone would tell me when I can eave so Ican let my know"Home EnvironmentPatient Lives With: Significant OtherAssistance Available: PRNEntry To Home: StairsNumber Of Stairs Into Home: 2 (platform)Number Of Stairs To Bed/Bath: 1 flightStairs to Bed/Bath with: Unilateral RailTub/Shower Type: tub showerEquipment Owned: Crutch(es);Wheeled Walker;Commode-RaisedPrior Functional Level: Within Functional LimitsOBJECTIVE:CURRENT FUNCTIONAL STATUS:Current Functional Mobility Assist Level Additional InformationRollingSupine to Sit (. pt up in chair jen rrival. Will assess this afternoon)Sit to Supine Modified Independent (wit huse of cane as leg residence director)Scooting Modified IndependentSit to Stand SupervisionStand to Sit SupervisionBed to Chair SupervisionToilet/CommodeGait Supervision Gait Device: Wheeled Walker Gait Distance (feet): 75 feet x 1, 25 feet x 1Stairs Stand By Assistance Stairs Device: Cane;Crutch(es);Rail (1 crutch+1HR; 1 cane+1HR)Number of Stairs: 10 (7+3)Curb Step Stand By Assistance WalkerCar Transfer Minimal AssistanceGait Deviations Left Lower Extremity: Weight bearing decreased;Stance timedecreased;Heel strike during initial stance decreased;Push-off duringterminal stance decreased;Step length decreasedGeneral Gait Deviations: Estelita decreasedPlease see discipline specific clinical documentation flowsheet forcomplete details for this therapy evaluation/treatment.SIGNATURE: Diana Coronel PT PATIENT NAME: Maritza MirDATE: January 24, 2017 : 3:42 PM PAGER/CONTACT #: [phone] [facility] THERAPY NT HNO ID: [id number] thor: Meg (Ot) JAZZY Bryanervice: Occupational TherapyAuthor Type: Occupational TherapistType: Therapy (PT/OT/Speech/Resp)Filed: 01/24/2017 2:29 PMNote Text:Occupational Therapy TreatmentSERVICE DATE: 01/24/2017SERVICE TIME: 1324 to 1412ROOM: [id number] Discharge Disposition: Home OTAnticipated Discharge Needs: Physical Assist at Home;Supervision atHome;EquipmentPhysical Assist at Home for: StairsSupervision at Home due to: Other: See Comment (d/t recent THR surgeyr)OT Recommendations to Nursing: Assist of 1 person with bedside ADL?s;OOBfor mealsOT 6 Clicks Score: 22Precautions/Activity Restrictions: Total Hip Replacement;Weight BearingRestrictionsExtremity With Weight Bearing Restricted: Left Lower ExtremityLeft Lower Extremity Weight Bearing Status: WBATTotal Hip Replacement Precautions: PosteriorASSESSMENT:Patient is safe to discharge from acute care setting to home and care offamily supports via car from OT perspective.Patient is s/p LTHA and demonstrates impaired self care and functionalmobility.Patient would benefit from Home OT intervention to increase independencewith self care, functional mobility and home management.Tolerated Full SessionOccupational Therapy Problem List: Pain;Safety Deficits;Impaired SelfCare;Functional Mobility ImpairmentPatient /Caregiver Goals: Go HomeGoals for Plan of Care:Lower Body Bathing with: Modified IndependentLower Body Dressing with: Modified IndependentChair Transfer with: Modified IndependentToilet Transfer with: Modified IndependentKitchen Mobility Tasks with: Modified IndependentDemonstrate Competence With Education with: IndependentTransfer: car with min assistProgress Toward Goals: Progressing as expectedPLAN:Treatment Frequency (times per week): 5 Current admissionTreatment Interventions: Education;Self Care / Home Management;FunctionalMobility TrainingPlan of Care developed with: PatientTREATMENT INTERVENTIONS:Therapy Diagnosis: Reduced mobility-other;Decreased activities of dailyliving (ADL)Interventions Provided: Therapeutic Activity (24472);Self Care HomeManagement (50890)Therapeutic Activity (02323) Treatment Minutes: 302 unitsSkilled Intervention(s): Instructed pt in functional transfers whilemaintaining post-operative precautions including: sit to stand, stand tosit, bed and car transfers. Instructed in use of cane to get LLE in/outof car and bed. Pt needed physical guidance of LLE into/out of car. Ptable to use cane successfully to get in/out of bed.Instructed on walker safety measures and adaptive methods for functionalmobility and transfers within her home.Self Senior Care Management (57822) Treatment Minutes: 181 unitSkilled Intervention(s):Reviewed post-operative THR precautions and guidelines with ADLs andfunctional mobility/ transfer techniques.Recommended home modifications for safety, including removal of throwrugs, clear pathways, and pre-positioning items for easy access.Patient instructed to not carry items in hands while using walker (usewalker bag or basket).lTotal Timed Code Treatment Minutes: 48Total Treatment Time (minutes): 48FUNCTIONAL G CODE:OT 6 Clicks Score: 22 (01/24/17 1324)Self Care Current Status (G8987): CJ (01/24/17 1324)Self Care Goal Status (G8988): CI (01/24/17 1324)Based on clinical assessment and the score on the 6 Clicks FunctionalAssessment Tool, the G code and corresponding severity modifiers aredocumented above.SUBJECTIVE:Current Hospital Course: Chart reviewed and no significant medical updatesrelevant to therapy were notedPatient Report: " We have both are cars out of commission and My sister frankie has to go to work, I do not have a ride home. "Home EnvironmentPatient Lives With: Significant OtherAssistance Available: PRNEntry To Home: StairsNumber Of Stairs Into Home: 2 (platform)Number Of Stairs To Bed/Bath: 1 flightStairs to Bed/Bath with: Unilateral RailTub/Shower Type: tub showerEquipment Owned: Crutch(es);Wheeled Walker;Commode-RaisedPrior Functional Level: Within Functional LimitsOBJECTIVE:CURRENT FUNCTIONAL STATUS:Current Activities of Daily Living Assist LevelFeeding IndependentGrooming IndependentBathing Upper Body Set UpBathing Lower Body Minimal AssistanceDressing Upper Body IndependentDressing Lower Body Minimal AssistanceToileting SupervisionInstrumental Activities of Daily Living Assist LevelMeal/Beverage PrepLight CleaningLaundryMedication Management with StrategiesFunctional Mobility Assist LevelRollingSupine to Sit Modified IndependentSit to Supine Modified IndependentScooting IndependentSit to Stand Verbal Cues OnlyStand to Sit Verbal Cues OnlyBed to Chair SupervisionWheeled WalkerToilet/Commode SupervisionFunctional MobilityCar Transfer: Minimal AssistancePlease see discipline specific clinical documentation flowsheet forcomplete details for this therapy evaluation/treatment.SIGNATURE: ROSY Hanna/Clarissa PATIENT NAME: Maritza Romo BasileDATE: January 24, 2017 : 2:25 PM PAGER: [phone] [facility] THERAPY NT HNO ID: [id number] thor: Diana (Pt) GuddyService: Physical TherapyAuthor Type: Physical TherapistType: Therapy (PT/OT/Speech/Resp)Filed: 01/24/2017 12:15 PMNote Text:Physical Therapy TreatmentSERVICE DATE: 01/24/2017SERVICE TIME: 1100 to 1140ROOM: [id number] Discharge Disposition: Home PTAnticipated Discharge Needs: Physical Assist at Home;Supervision atHome;EquipmentPhysical Assist at Home for: StairsSupervision at Home due to: Other: See Comment (d/t recent THR surgeyr)Recommended Discharge Equipment: CanePT Recommendations to Nursing: Ambulate with device;To bathroom;Inhalls;With assist of 1 person;OOB for mealsAmbulation Device: Wheeled WalkerPT 6 Clicks Score: 21Precautions/Activity Restrictions: Total Hip Replacement;Weight BearingRestrictionsExtremity With Weight Bearing Restricted: Left Lower ExtremityLeft Lower Extremity Weight Bearing Status: WBATTotal Hip Replacement Precautions: PosteriorASSESSMENT :Pt progressing as expected. Pt participated throughout sessionand stair training with multiple seated/standing rest breaks. AnticipateD/C home today after pm PT session for bed mobility and additional stairtraining.Tolerated Full Session Fatigue (participated with multiple seated andstanding rest breaks)Physical Therapy Problem List: Pain;Impaired Self Care;Decreased ActivityTolerance;Decreased Range Of Motion;Decreased Strength;Functional MobilityImpairment;Balance ImpairedPatient /Caregiver Goals: Walk;Go HomeGoals for Plan of Care:Able to perform HEP with: IndependentRolling with: SupervisionTransfer supine to/from sit with: SupervisionTransfer sit to/from stand with: SupervisionAmbulate with: SupervisionDistance: 125 feetDevice: Wheeled WalkerAmbulate up and down curb step with: Stand By AssistanceDevice: WalkerRehab Potential: GoodPLAN:Treatment Frequency (times per week): 7 Current admissionTreatment Interventions: Education;Self Care / Home Management;EnergyConservation Training;Strengthening;Function al Mobility Training;BalanceTrainingPlan of Care developed with: PatientTREATMENT INTERVENTIONS:Therapy Diagnosis: Reduced mobility-otherInterventions Provided: Gait Training (87355);Therapeutic Activity (41669)Therapeutic Activity (78682) Treatment Minutes: 171 unitSkilled Intervention(s): Instruction in sit to and from stand techniquewith proper hand placement and body positioning at edge of bed/chairEducation with POC, precautions, home management and set up, conservationof energy techniques, benefits of mobility and use of call light tomobilize/reposition as tolerated, seated LE THR exercises and antiembolics(performed 1x10)Gait Training (44566) Treatment Minutes: 232 unitsSkilled Intervention(s): Instruction in sit to stand technique with properhand placement and body positioning at edge of bed/chair, Instruction instand to sit technique with LE's touching chair/bed and reaching back forsurface, Instruction in sequencing, gait pattern, Instruction incorrection of gait deviations, Instruction in WB precautions, Instructionin stair negotiation, Instruction in use of equipment, cues for sequenceand pattern and posture, balance, safety, equipmentTotal Timed Code Treatment Minutes: 40Total Treatment Time (minutes): 40SUBJECTIVE:Current Hospital Course: Chart reviewed and no significant medical updatesrelevant to therapy were notedPatient Report: "I'm not sure about going home today""I was here for acouple days after my last surgery"Home EnvironmentPatient Lives With: Significant OtherAssistance Available: PRNEntry To Home: StairsNumber Of Stairs Into Home: 2 (platform)Number Of Stairs To Bed/Bath: 1 flightStairs to Bed/Bath with: Unilateral RailTub/Shower Type: tub showerEquipment Owned: Crutch(es);Wheeled Walker;Commode-RaisedPrior Functional Level: Within Functional LimitsOBJECTIVE:CURRENT FUNCTIONAL STATUS:Current Functional Mobility Assist Level Additional InformationRollingSupine to Sit (. pt up in chair jen rrival. Will assess this afternoon)Sit to SupineScootingSit to Stand SupervisionStand to Sit SupervisionBed to Chair SupervisionToilet/CommodeGait Supervision (requires several standing breaks d/t overall fatigue)Gait Device: Wheeled Walker (bariatric ) Gait Distance (feet): 175 feet x 2, 20 feet x 1Stairs Stand By Assistance Stairs Device: Cane;Crutch(es);Rail (1 crutch+1HR; 1 cane+1HR)Number of Stairs: 10 (7+3)Curb StepCar TransferGait Deviations Left Lower Extremity: Weight bearing decreased;Stance timedecreased;Heel strike during initial stance decreased;Push-off duringterminal stance decreased;Step length decreasedGeneral Gait Deviations: Estelita decreased;Shuffling Gait (initiating stepthru)Please see discipline specific clinical documentation flowsheet forcomplete details for this therapy evaluation/treatment.SIGNATURE: Diana Coronel PT PATIENT NAME: Maritza MirDATE: January 24, 2017 : 12:12 PM PAGER/CONTACT #: [phone] [facility] THERAPY NT HNO ID: [id number] thor: Meg (Ot) Randi OTService: Occupational TherapyAuthor Type: Occupational TherapistType: Therapy (PT/OT/Speech/Resp)Filed: 01/24/2017 10:47 AMNote Text:Occupational Therapy EvaluationSERVICE DATE: 01/24/2017SERVICE TIME: 2245 to 1023ROOM: [id number] Discharge Disposition: Home OTAnticipated Discharge Needs: Physical Assist at HomePhysical Assist at Home for: Cleaning;Laundry;Meals;Stairs;S afety;SelfCare;Shopping;Transpo rtationOT Recommendations to Nursing: Assist of 1 person with bedside ADL?s;OOBfor mealsOT 6 Clicks Score: 22Precautions/Activity Restrictions: Total Hip Replacement;Weight BearingRestrictionsExtremity With Weight Bearing Restricted: Left Lower ExtremityLeft Lower Extremity Weight Bearing Status: WBATTotal Hip Replacement Precautions: PosteriorASSESSMENT:Patient is s/p LTHA and demonstrates impaired self care and functionalmobility.Patient requires skilled OT intervention to maximize independence/safetywith ADLs, IADLs, functional mobility, and to educate on precautions andadaptive techniques/equipment .Patient would benefit from post acute OT intervention to increaseindependence with self care, functional mobility and home management.Anticipate patient will be safe to discharge from acute care setting [facility] and care of family supports via car. Will assess safety with cartransfer this afternoon.Tolerated Full SessionOccupational Therapy Problem List: Pain;Safety Deficits;Impaired SelfCare;Functional Mobility ImpairmentPatient /Caregiver Goals: Go HomeGoals for Plan of Care:Lower Body Bathing with: Modified IndependentLower Body Dressing with: Modified IndependentChair Transfer with: Modified IndependentToilet Transfer with: Modified IndependentKitchen Mobility Tasks with: Modified IndependentDemonstrate Competence With Education with: IndependentTransfer: car with min assistProgress Toward Goals: Progressing as expectedPLAN:Treatment Frequency (times per week): 5 Current admissionTreatment Interventions: Education;Self Care / Home Management;FunctionalMobility TrainingPlan of Care developed with: PatientTREATMENT INTERVENTIONS:Therapy Diagnosis: Reduced mobility-other;Decreased activities of dailyliving (ADL)Interventions Provided: Evaluation;Therapeutic Activity (21468);Self CareHome Management (95729)$ Evaluation-Low (75790) Billed Units: 1 unitTherapeutic Activity (46539) Treatment Minutes: 81 unitSkilled Intervention(s): Instructed pt in functional transfers whilemaintaining post-operative precautions including: sit to stand, stand tosit, chair and toilet transfers.Walker safety handout issued. car transfer handout issued.Self Senior Care Management (12126) Treatment Minutes: 151 unitSkilled Intervention(s):Educated on role of OT, POC, and discharge recommendations.Reviewed post-operative THR precautions and guidelines with ADLs andfunctional mobility/ transfer techniques.Instructed pt through demonstration and verbal cues, on use adaptivetechniques/equipment with lower body dressing and bathing.Recommended use of long handled sponge for bathing, and hot roller, longhandled shoe horn, and sock aid for lower body dressing.Issued equipment recommendation sheet.Recommended purchase of hip-kit adaptive equipment.Total Timed Code Treatment Minutes: 23Total Treatment Time (minutes): 38FUNCTIONAL G CODE:OT 6 Clicks Score: 22 (01/24/17944)Self Care Current Status (G8987): CJ (01/24/17944)Self Care Goal Status (G8988): CI (01/24/17944)Based on clinical assessment and the score on the 6 Clicks FunctionalAssessment Tool, the G code and corresponding severity modifiers aredocumented above.SUBJECTIVE:Current Hospital Course: Chart reviewed; Pt admitted s/p LTHA. PMHrelevant to POC: RTKR, LTKR, RTHR, asthma, HTN, OA, HAPatient Report: Pt indicates her is available to assist as needed.Home EnvironmentPatient Lives With: Significant OtherAssistance Available: PRNEntry To Home: StairsNumber Of Stairs Into Home: 2 (platform)Number Of Stairs To Bed/Bath: 1 flightStairs to Bed/Bath with: Unilateral RailTub/Shower Type: tub showerEquipment Owned: Crutch(es);Wheeled Walker;Commode-RaisedPrior Functional Level: Within Functional LimitsOBJECTIVE:CURRENT FUNCTIONAL STATUS:Current Activities of Daily Living Assist LevelFeeding IndependentGrooming IndependentBathing Upper Body Set UpBathing Lower Body Minimal AssistanceDressing Upper Body IndependentDressing Lower Body Minimal AssistanceToileting SupervisionInstrumental Activities of Daily Living Assist LevelMeal/Beverage PrepLight CleaningLaundryMedication Management with StrategiesFunctional Mobility Assist LevelRollingSupine to Sit Modified IndependentSit to SupineScootingSit to Stand SupervisionStand to Sit SupervisionBed to Chair SupervisionWheeled WalkerToilet/Commode SupervisionFunctional MobilityPlease see discipline specific clinical documentation flowsheet forcomplete details for this therapy evaluation/treatment.SIGNATURE: ROSY Hanna/Clarissa PATIENT NAME: [facility] centerDATE: January 24, 2017 : 10:43 AM PAGER: [phone] [facility] ANES Lex 01-23-2017 ANES POST HNO ID: [id number] thor: Qian Almarazice: AnesthesiologyAuthor Type: AnesthesiologistType: Anesthesia PostOpFiled: 01/23/2017 3:32 PMNote Text:POST ANESTHESIA EVALUATION NOTESERVICE DATE: 01/23/2017SERVICE TIME: 3:32DOB: 1960Vitals: 01/23/1714Temp: 36.2 ?C (97.2 ?F) 36 ?C (96.8 ?F) 01/23/1715BP: 121/86 110/62 118/60 110/55 01/23/1715Pulse: (!) 58 (!) 58 (!) 58 60 01/23/1715Resp: 16 16 16 16 01/23/1715SpO2: 100% 95% 95% 95%Validated Vital Signs: YesPOST ANES STATUS: No apparent anesthetic complications. The patient isappropriately hydrated with stable respiratory and cardiovascular status.Patient has safe and adequate airway control. The patient has appropriatepain relief and no significant post operative nausea or vomiting. Thepatient has achieved baseline mental status.Further assessment by Anesthesia Service: NoneOther Remarks:SIGNATURE: Qian Loaiza MD PATIENT NAME: Maritza MirDATE: January 23, 2017 : 3:32 PM PAGER/CONTACT #: [phone] [facility] ANES PREOPon 01-23-2017 ANES PREOP HNO ID: [id number] thor: Qian Almarazice: AnesthesiologyAutholala Type: AnesthesiologistType: Anesthesia PreOpFiled: 01/23/2017 12:03 PMNote Text: ANESTHESIOLOGY DAY OF SURGERY NOTESERVICE DATE: 01/23/2017SERVICE TIME: 12:01DOB: [birth year]Procedure(s) (LRB):ARTHROPLASTY REPLACE JOINT TOTAL HIP (Left)Surgeon(s):Lisseth FullerEstimated body mass index is 48.96 kg/(m2) as calculated from thefollowing: Height as of 01/04/17: 172.7 cm (5' 8"). Weight as of 01/04/17: 146.1 kg (322 lb).Most recent hematocrit and potassium results:Hematocrit 34.2 01/04/2017Potassium 5.0 01/04/2017ANES DOS/PREOP NOTE:Vitals: 127BP: 175/75Pulse: 62Resp: 16Temp: 36.2 ?C (97.2 ?F)TempSrc: Temporal ArterySpO2: 98%ACTIVE PROBLEM LISTEssential Hypertension, BenignObesityGeneralized Osteoarthrosis, Unspecified SiteKNEE JOINT REPLACEMENTLumbagoRoutine Gynecological ExaminationHyperlipidemiaImpair ed Fasting GlucoseSciaticaHip PainOsteoarthrosis, Unspecified Whether Generalized Or Localized, PelvicRegion and ThighSpecial Screening for Malignant Neoplasms, ColonAnemiaLumbosacral Spondylosis Without Myelopathy ([facility])History of Total Knee Replacement, BilateralHistory of Hip Replacement, Total, RightObesity, Class III, BMI >= 40 (morbid obesity) ([facility] E66.01Oa (Osteoarthritis)PAST MEDICAL HISTORYDiagnosis Date- Anemia- Asthma- Back pain- Depression- Essential hypertension, benign- Generalized osteoarthrosis, unspecified site Dr Fuller-ortho- Headache(784.0)- Hyperlipidemia- Impaired fasting glucose- Nocturnal leg cramps spasms controlled with requip- Obesity, unspecified- SnoringPAST SURGICAL HISTORYProcedure Laterality Date- DELIVERY ONLY 1998,1994 , low cervical- LIGATE FALLOPIAN TUBE 1998 Tubal ligation- ORAL SURGERY PROCEDURE 1979 jaw reconstruction- PAST SURGICAL HISTORY OF December 14, 2009 Diagnostic Hysteroscopy, Uterine Dilation and Curettage- PAST SURGICAL HISTORY OF December 14, 2009 Novasure Endometrial Ablation- REVISE MEDIAN N/CARPAL TUNNEL SURG 2004 Carpal tunnel decomp RIGHT- TOTAL HIP REPLACEMENT 02/24/2011 right hip- TOTAL KNEE REPLACEMENT 11/12 left knee replacement- TOTAL KNEE REPLACEMENT 03/17/09 right Knee replacement, total Dr. MccollumCleveland [facility]uclid HospitalFAMILY HISTORYProblem Relation Age of Onset- Fibromyalgia [Other] [OTHER] Mother- Asthma Mother- Emphysema Father- Hypertension Father- Coronary Artery Disease Father stent placement (late in life)- sleep apnea [Other] [OTHER] Father- Hypertension Brother- sleep apnea [Other] [OTHER] Brother- Colon Cancer No Family History- Cancer Son brainSocial History:Social HistorySubstance Use Topics- Smoking status: Former Smoker Packs/day: 1.00 Years: 15.00 Quit date: 12/07/1994- Smokeless tobacco: Never Used- Alcohol use No Comment: rarelyNo current facility-administered medications on file prior to encounter.Current Outpatient Prescriptions on File Prior to Encounter:gabapentin (NEURONTIN) 300 mg capsule Take 1 capsule by mouth three timesdaily.rOPINIRole (REQUIP) 0.5 mg tablet Take 1 tablet by mouth. Take 2 hrsbefore bed for restless legs. Take 1/2 tab nightly x2 days, then canincrease to 1 tab daily.albuterol 90 mcg/actuation Aero Inhale 1-2 Puffs as instructed four timesdaily as needed (for wheezing and shortness of breath).atenolol 50 mg tablet Take 1 tablet by mouth twice daily.DOCUSATE CALCIUM (STOOL SOFTENER ORAL) Take by mouth as needed.THERAPEUTIC MULTIVITAMIN ORAL TAB Take one(1) tablet daily.Current Facility-Administered Medications:lidocaine 10 mg/mL (1 %) 1-2 mg injection (XYLOCAINE) 0.1-0.2 mLINTRADERMAL PRN Yolette N (Pa-C) Millerlactated ringers infusion 5-30 mL/hr INTRAVENOUS CONTINUOUS Yolette N (Pa-C)MillerceFAZolin 3 g in sterile water 30 mL (ANCEF) 3 g INTRAVENOUS ONCE Yolette N(Pa-C) Milleracetaminophen 1,000 mg tab(s) (TYLENOL) 1,000 mg ORAL ONCE Yolette N (Pa-C)Millerscopolamine 1 mg over 3 days 1 Patch (TRANSDERM-SCOP) 1 Patch TRANSDERMALONCE Qian Yamat 1 Patch at 01/23/17 1130Andscopolamine - VERIFY patch OTHER q 8 H Qian Sarika[START ON 01/24/2017] scopolamine - REMOVE PATCH OTHER ONCE CatherineYamatAllergies: ALLERGIESNo Known AllergiesDOS EXAM: Adequate NPO Status: YesAnesthetic Risks, Benefits, Alternatives, Personnel and Consent Discussed:YesPatient agrees to proceed: YesPrevious Anesthesia: No history of adverse eventAirway Assessment: MP 3; Neck ROM: Full ROM without neurologic symptoms;Airway Evaluation: small mouthSymptoms of Sleep Apnea: NoneDentition: Teeth intactAdditional Physical Exam:Lungs: Patient health status unchanged since recent history and physical.See history and physical for exam findings.Cardiac: Patient health status unchanged since recent history andphysical. See history and physical for exam findings.Additional Pertinent Findings: N/ABlood Products: Will accept Blood/Blood ProductsAnesthetic Plan: spinal vs generalAnesthetic Monitoring: Standard ASA MonitorsPain Management Plan: Parenteral or OralASA Class: 3Other Medical Problems: NoneChronic Beta Milana medication administered within 24 hours: N/AI have interviewed and examined the patient. I have reviewed the medicalrecord and/or the pre-anesthesia evaluation, pertinent labs, and testresults.Significant changes in the patient's condition since the History andPhysical, not otherwise documented in primary service progress notes: NoThis contains updated information obtained within 48 hours ofSurgery/Procedure.SIGNATURE: Qian Loaiza MD PATIENT NAME: Maritza MirDATE: January 23, 2017 : 12:01 PM CSN: [id number] [facility] BRIEF OP NOTon 01-23-2017 BRIEF OP NOT HNO ID: [id number] thor: Lisseth George: Orthopaedic SurgeryAuthor Type: PhysicianType: Brief Op NoteFiled: 01/23/2017 5:26 PMNote Text:BRIEF OPERATIVE / PROCEDURE NOTETOTAL HIP ARTHROPLASTYLOG ID: [id number]/Procedure Date: 01/23/2017Incision/Procedure Start Time: 1:02 PMIncision Close/Procedure End Time: 2:22 PMSurgeon(s)/Proceduralist(s) and Personnel Adviser(s):Surgeon(s) and Role: * Lisseth Fuller - Primary * French (Nico) Trini - Resident - AssistingSurgical Personnel Adviser: Jennie DicksonkProcedure(s):Procedure(s ) (LRB):ARTHROPLASTY REPLACE JOINT TOTAL HIP (Left)Anesthesia: SpinalApproach: PosteriorFindings: hip OAEstimated Blood Loss: 200 mlsSpecimens: NoneComplications: NoneImplant:Implant Name Type Inv. Item Serial No. Relocation Manager Lot No. LRB No. UsedCUP PINNACLE 52MM GRIPTION ACETABULAR SECTOR - [id number] Joint - Hip CUPPINNACLE 52MM GRIPTION ACETABULAR SECTOR J AND J [employer] [id number] 1LINER PINNACLE 52MM 36MM +4MM NEUTRAL ALTRX ACETABULAR LATERALIZE HIP -[id number] Joint - Hip LINER PINNACLE 52MM 36MM +4MM NEUTRAL ALTRXACETABULAR LATERALIZE HIP J AND J [employer] [id number] Left 1STEM CORAIL ARTICUL/ANDREAS 10MM 135D 39.5MM 12/14 MINI TAPER STANDARD OFFSET- [id number] Joint - Hip STEM CORAIL ARTICUL/ANDREAS 10MM 135D 39.5MM 12/14MINI TAPER STANDARD OFFSET J AND J [employer] [id number] Left 1HEAD ARTICUL/ANDREAS 36MM +5MM 12/14 METAL FEMORAL M-SPEC HIP - [id number] - Hip HEAD ARTICUL/ANDREAS 36MM +5MM 12/14 METAL FEMORAL M-SPEC HIP JAND J [employer] [id number] Left 1Bearing Surface: Metal on PolyFixation: CementlessPre-Op/Pre-Procedure Diagnosis: Other secondary osteoarthritis of left hip[M16.7]Post-Op/Post-Procedur e Diagnosis: Other secondary osteoarthritis of lefthip [M16.7]Weight Bearing Status: Weight Bearing As ToleratedSIGNATURE: French Feliz MD PATIENT NAME: Maritza MirDATE: January 23, 2017 : 2:32 PM PAGER/CONTACT #: [phone] [facility] CONSULTon 01-23-2017 CONSULT HNO ID: [id number] thor: Bneito Hoang: General Internal MedicineAuthor Type: PhysicianType: ConsultsFiled: 01/23/2017 5:01 PMNote Text:CONSULT: MEDICAL SERVICESERVICE DATE: 01/23/2017SERVICE TIME: 4:54 PMREASON FOR CONSULT: 4:54 PMREQUESTING PHYSICIAN: [facility]ALL[facility]: Aram OlivoSteven Mir is a 56 year old female who presents for left SHANNAN. I was askedto see the pt for post op medical care.Pt seen and chart reviewed.At this time, the pt has no medical concerns.She has a past hx of HTN, high cholesterol, anemia.Pt denies SOB, chest pain and palpitations.FUNCTIONAL STATUS: IndependentPAST MEDICAL HISTORYDiagnosis Date- Anemia- Asthma- Back pain- Depression- Essential hypertension, benign- Generalized osteoarthrosis, unspecified site Dr Fuller-ortho- Headache(784.0)- Hyperlipidemia- Impaired fasting glucose- Nocturnal leg cramps spasms controlled with requip- Obesity, unspecified- SnoringPAST SURGICAL HISTORYProcedure Laterality Date- DELIVERY ONLY , low cervical- LIGATE FALLOPIAN TUBE 1998 Tubal ligation- ORAL SURGERY PROCEDURE 1979 jaw reconstruction- PAST SURGICAL HISTORY OF December 14, 2009 Diagnostic Hysteroscopy, Uterine Dilation and Curettage- PAST SURGICAL HISTORY OF December 14, 2009 Novasure Endometrial Ablation- REVISE MEDIAN N/CARPAL TUNNEL SURG 2003 Carpal tunnel decomp RIGHT- TOTAL HIP REPLACEMENT 02/24/2011 right hip- TOTAL KNEE REPLACEMENT 11/12 left knee replacement- TOTAL KNEE REPLACEMENT 03/17/09 right Knee replacement, total Dr. MccollumC[facility] HospitalFAMILY HISTORYProblem Relation Age of Onset- Fibromyalgia [Other] [OTHER] Mother- Asthma Mother- Emphysema Father- Hypertension Father- Coronary Artery Disease Father stent placement (late in life)- sleep apnea [Other] [OTHER] Father- Hypertension Brother- sleep apnea [Other] [OTHER] Brother- Colon Cancer No Family History- Cancer Son brainSocial HistorySubstance Use Topics- Smoking status: Former Smoker Packs/day: 1.00 Years: 15.00 Quit date: 12/07/1994- Smokeless tobacco: Never Used- Alcohol use No Comment: rarelyPrescriptions Prior to Admission:iron sucrose (VENOFER) 100 mg iron/5 mL injection Please give [id number] IV in 250ml NS over 90 minutes for 1 dose (total 200mg). Pleasecomplete prior to surgery on 01/23/2017. Disp: 10 mL Rfl: 0 01/11/2017 atFadumowrah timegabapentin (NEURONTIN) 300 mg capsule Take 1 capsule by mouth three timesdaily. Disp: Rfl: 01/22/2017 at 0600rOPINIRole (REQUIP) 0.5 mg tablet Take 1 tablet by mouth. Take 2 hrsbefore bed for restless legs. Take 1/2 tab nightly x2 days, then canincrease to 1 tab daily. Disp: 30 tablet Rfl: 5 01/21/2017 at Unknown timealbuterol 90 mcg/actuation Aero Inhale 1-2 Puffs as instructed four timesdaily as needed (for wheezing and shortness of breath). Disp: 1 InhalerRfl: 1 Unknown at Unknown timeatenolol 50 mg tablet Take 1 tablet by mouth twice daily. Disp: 180 tabletRfl: 3 01/23/2017 at 0745DOCUSATE CALCIUM (STOOL SOFTENER ORAL) Take by mouth as needed. Disp:Rfl: Unknown at Unknown timeTHERAPEUTIC MULTIVITAMIN ORAL TAB Take one(1) tablet daily. Disp: Rfl: 0Past Week at Unknown timeCurrent hospital medications:lidocaine 10 mg/mL (1 %) 1-2 mg injection (XYLOCAINE) 0.1-0.2 mLINTRADERMAL PRNlactated ringers infusion 5-30 mL/hr INTRAVENOUS CONTINUOUSceFAZolin 3 g in sterile water 30 mL (ANCEF) 3 g INTRAVENOUS ONCEacetaminophen 1,000 mg tab(s) (TYLENOL) 1,000 mg ORAL ONCEscopolamine 1 mg over 3 days 1 Patch (TRANSDERM-SCOP) 1 Patch TRANSDERMALONCEscopolamine - VERIFY patch OTHER q 8 H[START ON 01/24/2017] scopolamine - REMOVE PATCH OTHER ONCEgabapentin 300 mg cap(s) (NEURONTIN) 300 mg ORAL TIDrOPINIRole 0.5 mg tab(s) (REQUIP) 0.5 mg ORAL AT BEDTIMEmetoprolol tartrate (short acting) 50 mg tab(s) (LOPRESSOR) 50 mg ORAL q12 Halbuterol 2.5 mg /3 mL (0.083 %) 2.5 mg (PROVENTIL) 2.5 mg INHALATION q 4H PRNlactated ringers infusion 75 mL/hr INTRAVENOUS CONTINUOUS0.9% NaCl 2-10 mL 2-10 mL INTRAVENOUS q 12 H0.9% NaCl 2-10 mL 2-10 mL INTRAVENOUS q 12 Hmorphine 2 mg injection 2 mg INTRAVENOUS q 2 H PRNoxyCODONE IR 5-10 mg tab(s) (ROXICODONE) 5-10 mg ORAL q 3 H PRNacetaminophen 1,000 mg tab(s) (TYLENOL) 1,000 mg ORAL q 8 Hondansetron 4 mg tab(s) (ZOFRAN) 4 mg ORAL q 6 H PRNondansetron (PF) 4 mg injection (ZOFRAN) 4 mg INTRAVENOUS q 6 H PRNaluminum-magnesium hydroxide-simethicone 200-200-20 mg/5 mL 30 mL(MAALOX,MYLANTA,MAG-AL PLUS) 30 mL ORAL q 2 H PRN[START ON 01/24/2017] ascorbic acid (vitamin C) 500 mg tab(s) (VITAMIN C)500 mg ORAL BID w MEALS[START ON 01/24/2017] docusate sodium 100 mg cap(s) (COLACE) 100 mg ORALBID[START ON 01/25/2017] bisacodyl EC 10 mg tab(s) (DULCOLAX) 10 mg ORALDAILY[START ON 01/24/2017] magnesium hydroxide 400 mg/5 mL 30 mL (MOM) 30 mLORAL DAILY PRNceFAZolin 2 g in dextrose (iso-osmotic) 100 mL (ANCEF, KEFZOL) 2 gINTRAVENOUS q 8 Hketorolac 30 mg injection (TORADOL) 30 mg INTRAVENOUS q 6 H[START ON 01/24/2017] enoxaparin 40 mg injection (LOVENOX) 40 mgSUBCUTANEOUS DAILYcyclobenzaprine 5-10 mg tab(s) (FLEXERIL) 5-10 mg ORAL TID PRNinfluenza vaccine 60 mcg (Patients 3 to 64 years) (PF) (FLUZONE 2016-)0.5 mL INTRAMUSCULAR ONCE (IMMUNIZATION)pneumococcal vaccine 23 VALENT 0.5 mL injection (PNEUMOVAX) 0.5 mLINTRAMUSCULAR ONCE (IMMUNIZATION)Allergies As of Date: 11/22/2016(No Known Allergies)Fully Assessed 10/31/2016COMPLETE REVIEW OF SYSTEMS:GENERAL: no fever or chillsRESPIRATORY: no SOBCARDIOVASCULAR: denies chest painGI: No nausea, vomiting, or diarrheaMUSCULOSKELETAL: positive for arthritisOBJECTIVEPHYSICAL EXAM: GENERAL: Alert, no distress, cooperativeHEAD/SINUSES: No significant findingsOROPHARYNX: MMMLUNGS: Lungs clear to auscultation, Good diaphragmatic excursionCARDIAC: Rhythm: regular rate and rhythmABDOMEN: Soft, nontenderPatient Vitals for the past 24 hrs: BP Temp Temp src Pulse Resp SpO2 Height Xeuevn62/19/17 1553 - - - - - - 172.7 cm (5' 8") (!) 142.9 kg (315 lb)01/23/17 1551 135/61 36.3 ?C (97.4 ?F) Oral 67 16 100 % - -01/23/17 1530 110/55 - - 60 16 95 % - -01/23/17 1515 118/60 - - (!) 58 16 95 % - -01/23/17 1500 110/62 - - (!) 58 16 95 % - -01/23/17 1445 121/86 - - (!) 58 16 100 % - -01/23/17 1432 119/86 36 ?C (96.8 ?F) Temporal Art 71 20 100 % - -01/23/17 1224 133/63 - - 70 16 98 % - -01/23/17 1219 144/89 - - 68 16 98 % - -01/23/17 1127 175/75 36.2 ?C (97.2 ?F) Temporal Art 62 16 98 % - -Body mass index is 47.9 kg/(m2).DATA:Diagnostic tests reviewed for today's visit:No new labsIMPRESSION/RECOMMENDATIONSA ctive Problems:S/P THAMedically stable Obesity, Class III, BMI >= 40 (morbid obesity) ([facility]) E66.01 Assessment AND Plan: recommend dietary modification and follow up withPCPHx of HTN. Will monitor BPLovenox for DVT prophylaxis.Will follow. Thanks.SIGNATURE: Benito Segura MD PATIENT NAME: Maritza MirDATE: January 23, 2017 : 4:54 PM PAGER: [phone] [facility] NURSING PROGon 01-23-2017 NURSING PROG HNO ID: [id number] thor: Velia (Rn) Audie, RNService: NursingAuthor Type: Registered NurseType: Nursing Progress NoteFiled: 01/23/2017 4:16 PMNote Text: Nursing Progress NotePatient Name: Maritza MirMRN: [id number] Location: [facility]-[id number] D aily Note:1600 -Pt received from PACU alert and oriented x 3. Ice chipsand water given. Oriented to 5D unit environment, call light, bedcontrols, falls/safety precautions, pain scale and PRN/scheduled painmeds. Pt reports good understanding of information given.This note was completed by: Velia Bronson RN [facility] NURSING PROG HNO ID: [id number] thor: Tammy (Rn) Estefanía, RNService: (none)Author Type: Registered NurseType: Nursing Progress NoteFiled: 01/23/2017 3:25 PMNote Text: Nursing Progress NotePatient Name: Maritza MirMRN: [id number] Location: [place] [id number] Daily Note:pt to pacu; sleepy. Placed on monitor. drsg to left hip dryand intact. Pt has sensation to umbilicus with no movement to legs/feet.Pt has hip abductor in place with scds on bilaterally. Denies pain toleft hip. Ice applied to left hip. Safety maintained.1500 Xray at bedside.1510 Pt has shivering; medicated. Safety maintained.1520 Pt states shivering is better. States feeling warmer. Pt has grossmotor movement to bilateral feet with sensation down to feet. Denies painto left hip. Safety maintained.1540 Ready to go to floor.This note was completed by: Tammy José RN [facility] NURSING PROG HNO ID: [id number] thor: Ryan Jeronimo) Priya Cristobal: (none)Author Type: Registered NurseType: Nursing Progress NoteFiled: 01/23/2017 2:32 PMNote Text:Discharge Status:Patient is Awakening, and is no airway issues. Skin condition was WNL.Transported to recovery room via bed with siderails up. Accompanied byanesthetist and KATHIE/. [facility] NURSING PROG HNO ID: [id number] thor: Ryan (Adrianna) Xiao Cristobalice: (none)Author Type: Registered NurseType: Nursing Progress NoteFiled: 01/23/2017 1:27 PMNote Text:Patient transported to the OR via cart, accompanied by Susu stinson.Level of consciousness: Alert and Oriented x 3Emotional Status:CalmSensory Impairments: NoLanguage Barrier: NoMobility Impairments: NoAddressed any patient concerns regarding consents, OR environment, andanesthetics.Body temperature maintained by maintaining OR room temperature pzpxunh44-79 degrees F, providing patient with warm bath blankets, limiting areasof exposure and providing warm irrigation fluid. [facility] NURSING PROG HNO ID: [id number] thor: Gloria Jeronimo) Xiao Niice: NursingAuthor Type: Registered NurseType: Nursing Progress NoteFiled: 01/23/2017 11:37 AMNote Text: Nursing Progress NotePatient Name: Maritza MirN: [id number] Location: [place] [id number] Wipes pre op as directed.This note was completed by: Gloria Ni RN [facility] OPERATIVE NOon 01-23-2017 OPERATIVE NO HNO ID: [id number] thor: Lisseth George: Orthopaedic SurgeryAuthor Type: PhysicianType: Operative ReportFiled: 01/23/2017 5:28 PMNote Text:OPERATIVE/PROCEDURE REPORTLOG ID: [id number]/Procedure Date: 01/23/2017Incision/Procedure Start Time: 1:02 PMIncision Close/Procedure End Time: 2:22 PMSurgeon(s)/Proceduralist(s) and Personnel Adviser(s):Surgeon(s) and Role: * Lisseth Fuller - Primary * French (Paloma Feliz - Resident - AssistingAnesthesia: SpinalPreop Diagnosis: Pre-Op Diagnosis Codes: * Other secondary osteoarthritis of left hip [M16.7]Postop Diagnosis: Pre-Op Diagnosis Codes: * Other secondary osteoarthritis of left hip [M16.7]Procedure(s):Procedure(s ) (LRB):ARTHROPLASTY REPLACE JOINT TOTAL HIP (Left)Implants:Implant Name Type Inv. Item Serial No. Relocation Manager Lot No. LRB Model NumNo. UsedCUP PINNACLE 52MM GRIPTION ACETABULAR SECTOR - [id number] Joint - Hip CUPPINNACLE 52MM GRIPTION ACETABULAR SECTOR J [employer] J [employer] [id number] 1LINER PINNACLE 52MM 36MM +4MM NEUTRAL ALTRX ACETABULAR LATERALIZE HIP -[id number] Joint - Hip LINER PINNACLE 52MM 36MM +4MM NEUTRAL ALTRXACETABULAR LATERALIZE HIP J AND J [employer] [id number] Left [id number] 1STEM CORAIL ARTICUL/ANDREAS 10MM 135D 39.5MM 12/14 MINI TAPER STANDARD OFFSET- [id number] Joint - Hip STEM CORAIL ARTICUL/ANDREAS 10MM 135D 39.5MM 12/14MINI TAPER STANDARD OFFSET J AND J [employer] [id number] Left [id number] 1HEAD ARTICUL/ANDREAS 36MM +5MM 12/14 METAL FEMORAL M-SPEC HIP - [id number] - Hip HEAD ARTICUL/ANDREAS 36MM +5MM 12/14 METAL FEMORAL M-SPEC HIP JAND Brenda [employer]TH[employer] [id number] Left [id number] 1Problem List: ACTIVE PROBLEM LISTEssential Hypertension, BenignObesityGeneralized Osteoarthrosis, Unspecified SiteKNEE JOINT REPLACEMENTLumbagoRoutine Gynecological ExaminationHyperlipidemiaImpair ed Fasting GlucoseSciaticaHip PainOsteoarthrosis, Unspecified Whether Generalized Or Localized, PelvicRegion and ThighSpecial Screening for Malignant Neoplasms, ColonAnemiaLumbosacral Spondylosis Without Myelopathy ([facility])History of Total Knee Replacement, BilateralHistory of Hip Replacement, Total, RightObesity, Class III, BMI >= 40 (morbid obesity) ([facility]) E66.01Oa (Osteoarthritis)Osteoarthritis of HipFindings: Complete eburnation of femoral head and periacetabularosteophytesSpecim ens: Femoral headOPERATIVE INDICATIONS: This patient was seen in the office and found tohave intractable left hip pain with imaging showing significant jointspace narrowing. They exhausted non-operative management with acombination of meds, activity modification, and home exercise program.These were no longer providing the relief they desired. The risks,benefits and alternatives to that were discussed at length with thepatient. A shared decision was made. Complications discussed included butwere not limited to leg length discrepancy, dislocation, fracture,infection, blood clots,and medical complications.PROCEDURE: The patient was taken to the operating room and aftersatisfactory spinal anesthesia she was placed in the lateral position withthelefthip superior. Herleft hip and lower extremity were prepped anddraped in the usual sterile fashion. A 6-inch incision was made over thetrochanter, curving posteriorly. Dissection was carried down to the tensorfascia tez, which was incised in line with the incision. A Charnleyretractor was placed in the wound. Sciatic nerve was identified andprotected. The piriformis was incised off the back of the trochanter andagain was tagged. The capsule was opened posteriorly and the hip wasdislocated. The femoral neck was cut 1 fingerbreadth proximal to thelesser trochanter and retractors were placed around the acetabulum. Thecapsulectomy was completed. Reaming was begun with a 44 millimeter reamerand carried up to a 51 mm reamer, and a 52 mm gription cup was impacted in45 degrees of abduction and 20 degrees of anteversion. The cup was stableand a liner was impacted, 36 millimeters. Attention was then turned tothe canal, which was opened with a box osteotome and a T-handled reamer.Broaching was begun with a size 8 and carried up to a size 10 corail stem.Trial reduction was carried out with a 36, +5 mm head. The hip was stableas it was taken through a full range of motion. X-ray was obtainedintraoperatively to show satisfactory positioning of the components. Thefinal size 36 head was impacted on the Welch taper. Again, the hip wasreduced. The wound was copiously irrigated with antibiotic solution.Closure was begun. The piriformis was repaired through drill holes in theback of the trochanter. The tensor fascia was repaired with 0 suture.Subcutaneous tissues were closed with 2-0 suture. Skin was closed withsubcuticular 3-0 undyed suture. Steri- Strips and sterile dressing wereapplied. The patient was then awakened and taken to the recovery room insatisfactory condition.The arthritis was primary osteoarthritis.Estimated Blood Loss: 150 mlsDrains: NoneComplications: NoneThe primary surgeon/proceduralist performed the procedure with assistance.I performed the procedure with assistance. The resident and PA assistedwith exposure and closure.SIGNATURE: Lisseth Fuller MD PATIENT NAME: Maritza MirDATE: January 23, 2017 : 5:26 PM PAGER/CONTACT #: [facility] PT EDon 01-23-2017 PT ED HNO ID: [id number] thor: Gloria (Rn) EKATERINA Niervice: NursingAuthor Type: Registered NurseType: Patient EducationFiled: 01/23/2017 11:05 AMNote Text:PATIENT EDUCATION TOPIC: PROCEDURE / SURGERY: Pre-op Teaching:LogisticsPATIENT NAME: Maritza MirMRN: [id number] LOCATION: [place] [address]READINESS TO LEARNCOGNITIVE ABILITY: Alert and orientedMOTIVATION TO LEARN: EagerFAMILY SUPPORT: High - Very involved in pt careINSTRUCTION PROVIDED TO: Patient and family memberPATIENT LEARNS BEST BY: Verbal InstructionFACTORS AFFECTING LEARNING: NonePHYSICAL LIMITATIONS AFFECTING LEARNING: NoneLEARNING RESPONSEPATIENT/FAMILY RESPONSE: Verbalizes understanding of: ZLZ-ZDJIZLVWSGHXWTYLDEJXW-Piqpz ct action to take to follow pre-operative instructionsMETHOD OF INSTRUCTION: Verbal instructionFOLLOW-UP PLAN: Complete - No need for follow-upINSTRUCTIONAL AIDS USED: NASUPPLEMENTAL MATERIAL PROVIDED TO PATIENT: NoneREFERRAL (RECOMMENDATION): NoneElectronically Signed By: Gloria Ni RN [facility] SURGICAL PATHOLOGYon 017 SURGICAL PATHOLOGY [facility]: [id number] Physician: Lisseth Fuller M.D. FINAL DIAGNOSISLeft hip, arthroplasty - Degenerative joint disease.Eric Morel M.D.(Electronic Signature) SPECIMEN SUBMITTEDA: BONES, TISSUE, LEFT HIP CLINICAL DATAOA LEFT HIP GROSS DESCRIPTIONA. Received in formalin labeled "bones, tissue, left hip" is a femoral headwith attached neck measuring 6 x 4 x 4 cm. The articular surface isirregular with areas of eburnation and cartilage loss. The peripherydemonstrates moderate to severe osteophyte formation. Sectioning revealstan trabeculated bony cut surfaces underlying areas of eburnation. Nodistinct areas of necrosis or other areas of interest are noted. Separatesegments of bony fragments and soft tissue are separately received,aggregating to 3 x 3 x 1.5 cm. Wood Furniture Assembler sections are submitted asfollows: A1 soft tissue, A2 eburnation following decalcification. Gross examination performed at [facility] [address], [place] [address]HFO/gp 01/24/2017Patient ID #: [id number] of Report: 01/30/2017Date of Procedure: 01/23/2017Date of Receipt: 01/23/2017Submitted by: Lisseth Fuller M.D.Location: SA6RNidpsfrqrd interpretation performed at [facility] DiagnosticsMarc [place] [id number]. [facility] THERAPY NTon 01-23-2017 THERAPY NT HNO ID: [id number] thor: Diana (Pt) AnyayService: Physical TherapyAuthor Type: Physical TherapistType: Therapy (PT/OT/Speech/Resp)Filed: 01/23/2017 5:42 PMNote Text:Physical Therapy EvaluationSERVICE DATE: 01/23/2017SERVICE TIME: 1705 to 1722ROOM: [id number] Discharge Disposition: Home PTAnticipated Discharge Needs: Physical Assist at HomePhysical Assist at Home for: StairsRecommended Discharge Equipment: No equipment needs anticipatedPT 6 Clicks Score: 11Precautions/Activity Restrictions: Total Hip Replacement;Weight BearingRestrictionsExtremity With Weight Bearing Restricted: Left Lower ExtremityLeft Lower Extremity Weight Bearing Status: WBATTotal Hip Replacement Precautions: PosteriorASSESSMENT :Pt presents with impaired tolerance to activity and functionalmobility following L THR. Pt requires skilled PT for post op THReducation, exercises and progression of mobility. Unable to assess OOBmobility on evaluation d/t residual numbness and decreased motor functions/p spinal anesthesia. Anticipate D/C home tomorrow after PT session andstair training. Pt would benefit from continued PT at home upon D/C toprogress HEP and independent mobility.Tolerance Limited By Other: See Comment (continued numbness/motor controldeficits s/p spinal)Physical Therapy Problem List: Pain;Impaired Self Care;Decreased ActivityTolerance;Decreased Range Of Motion;Decreased Strength;Functional MobilityImpairment;Balance ImpairedPatient /Caregiver Goals: Walk;Go HomeGoals for Plan of Care:Able to perform HEP with: IndependentRolling with: SupervisionTransfer supine to/from sit with: SupervisionTransfer sit to/from stand with: SupervisionAmbulate with: SupervisionDistance: 125 feetDevice: Wheeled WalkerAmbulate up and down curb step with: Stand By AssistanceDevice: WalkerRehab Potential: GoodPLAN:Treatment Frequency (times per week): 7 Current admissionTreatment Interventions: Education;Self Care / Home Management;EnergyConservation Training;Strengthening;Function al Mobility Training;BalanceTraining;Neurom uscular Re-educationPlan of Care developed with: Patient;CaregiverTREATMENT INTERVENTIONS:Therapy Diagnosis: Reduced mobility-otherInterventions Provided: Evaluation$ Evaluation-Low (14246) Billed Units: 1 unitTotal Treatment Time (minutes): 15FUNCTIONAL G CODE:PT 6 Clicks Score: 11 (01/23/17 1706)Mobility: Walking and Moving Around Current Status (G8978): CL ()Mobility: Walking and Moving Around Goal Status (G8979): CJ ()Based on clinical assessment and the score on the 6 Clicks FunctionalAssessment Tool, the G code and corresponding severity modifiers aredocumented above.SUBJECTIVE:Current Hospital Course: Chart reviewed; 56 y.o female admitted 01/23/17s/p L THR. PMH includesanemia, asthma, depression, HTN, OA, RIVERA, obesity, RTKR 2009, L TKR 2007, R THR 2011Patient Report: "My legs are still pretty numb"Home EnvironmentPatient Lives With: Significant OtherAssistance Available: PRNEntry To Home: StairsNumber Of Stairs Into Home: 2 (platform)Number Of Stairs To Bed/Bath: 1 flightStairs to Bed/Bath with: Unilateral RailEquipment Owned: Crutch(es);Wheeled Walker;Commode-RaisedPrior Functional Level: Within Functional LimitsOBJECTIVE:CURRENT FUNCTIONAL STATUS:Current Functional Mobility Assist Level Additional InformationRollingSupine to Sit Other: See Comment (NT d/t continued numbness and motordeficits s/p spinal)Sit to SupineScootingSit to StandStand to SitBed to ChairToilet/CommodeGaitStairsCu rb StepCar TransferPlease see discipline specific clinical documentation flowsheet forcomplete details for this therapy evaluation/treatment.SIGNATURE: Diana Coronel, PT PATIENT NAME: Maritza MirDATE: January 23, 2017 : 5:36 PM PAGER/CONTACT #: [phone] [facility] XR PELVIS 1V APon 01-23-2017 XR PELVIS 1V AP * * *Final Report* * *DATE OF EXAM: Jan 23 2017 3:10PM LUX 5239 - XR PELVIS 1V AP / REASON: Postoperative state * * * * Physician Interpretation * * * * Indication: Status post left hip arthroplastyComparison: Intraoperative left hip x-ray 01/23/2017AP portable x-ray of the pelvis is obtained. There is satisfactory position of a left hip prosthesis. A right hip prosthesis is again noted. No fracture or dislocation is identified. There is soft tissue swelling and gas in the tissues consistent with recent surgery.IMPRESSION: Satisfactory postoperative appearance of left hip arthroplasty.Steel Box Toe Inserter: NEENA Transcribe Date/Time: Jan 23 2017 3:22PDictated by : Marita MARIE examination was interpreted and the report reviewed and electronically signed by: SOSA FLORES MD on Jan 23 2017 3:23PM [id number] [facility] XR PELVIS 1V AP * * *Final Report* * *DATE OF EXAM: Jan 23 2017 1:39PM MELE 5239 - XR PELVIS 1V AP / REASON: Other secondary osteoarthritis of left hip * * * * Physician Interpretation * * * * CLINICAL: Hip arthroplasty.COMPARISON: Comparison is made to prior study dated 10/31/2016.FINDINGS: Recumbent portable radiograph of the lower pelvis obtained on 01/23/2017 1:39 PM is presented for interpretation later the same day at 1344 hours. Film demonstrates postsurgical changes compatible with left hip arthroplasty. The visualized acetabular and femoral stem components appear in good anatomic alignment without apparent interval complication. Please refer to procedural report.IMPRESSION: Postsurgical changes without interval complication.Steel Box Toe Inserter: [facility]OSPITALMichi Transcribe Date/Time: Jan 23 2017 1:44PDictated by : Marita DIA examination was interpreted and the report reviewed and electronically signed by: MICHA BLOOM MD on Jan 23 2017 1:44PM [id number] [facility] NURSING PROGon 01-08-2017 NURSING PROG HNO ID: [id number] thor: Ashley (Rn) Diego, RNService: NeurosurgeryAuthor Type: Registered NurseType: Nursing Progress NoteFiled: 01/12/2017 11:22 AMNote Text:PACC Nurse Progress NoteHistory AND Physical:PACC Visit Date: 01-04Labs Within Last 6 Months:CBC: Date 01-04BMP/CMP: Date 11-30STAAMP: Date 01-04 negTYPE AND SCREEN: 01-04Imaging Within Last 12 Months:N/ACardiac Testing:EKG in last 12 Months: Yes: Date: 01-04, Comment: N/ANarrative:01-18 Patient has an appt for a venofer infusionChart Check:Lexa Gipson RNDecember 2016 2:27 PM01/12/17 11:20am EKG confirmed. Chart complete. Ashley Cortez RN [facility] HOSP 01-05-2017 HOSP Patient Update (LULPAT) MARITZA DEAL ([id number]) 1960 FDate Time Provider Gjgtfdzlnn16/1/17 ADORE IRAHETA (HIST) LULPCHELSY During your visit today, we recorded the following information about you:Maritza Poole Dir 01/05/2017 8:59 AM SignedPatient referred to Blood Management for evaluation and treatment ofpre-surgical anemia and/or iron deficiency.Surgical Procedure: Hip replacementDate of surgery: 01/23/2017Medical/Surgical History:PAST MEDICAL HISTORYDiagnosis Date- Anemia- Asthma- Back pain- Depression- Essential hypertension, benign- Generalized osteoarthrosis, unspecified site Dr Fuller-ortho- Headache(784.0)- Hyperlipidemia- Impaired fasting glucose- Nocturnal leg cramps spasms controlled with requip- Obesity, unspecified- SnoringPAST SURGICAL HISTORYProcedure Laterality Date- DELIVERY ONLY 1998,1994 , low cervical- LIGATE FALLOPIAN TUBE 1998 Tubal ligation- ORAL SURGERY PROCEDURE 1979 jaw reconstruction- PAST SURGICAL HISTORY OF December 14, 2009 Diagnostic Hysteroscopy, Uterine Dilation and Curettage- PAST SURGICAL HISTORY OF December 14, 2009 Novasure Endometrial Ablation- REVISE MEDIAN N/CARPAL TUNNEL SURG 2004 Carpal tunnel decomp RIGHT- TOTAL HIP REPLACEMENT 02/24/2011 right hip- TOTAL KNEE REPLACEMENT 11/12 left knee replacement- TOTAL KNEE REPLACEMENT 03/17/09 right Knee replacement, [facility]/Surgical history:N/ACurrent Outpatient Prescriptions:ibuprofen (MOTRIN) 800 mg tablet as needed.HYDROcodone-acetaminophe n (NORCO) 5-325 mg per tablet Take 1 tablet by mouthonce daily as needed. Do not fill until September 09, 2016.diclofenac, EC, (VOLTAREN) 75 mg EC tablet Take 75 mg by mouth twice daily.gabapentin (NEURONTIN) 300 mg capsule Take 1 capsule by mouth three timesdaily.naproxen (NAPROSYN) 500 mg tablet Take 1 tablet by mouth twice daily as needed(pain/inflammation, take with food.).rOPINIRole (REQUIP) 0.5 mg tablet Take 1 tablet by mouth. Take 2 hrs before bedfor restless legs. Take 1/2 tab nightly x2 days, then can increase to 1 tabdaily.albuterol 90 mcg/actuation Aero Inhale 1-2 Puffs as instructed four times dailyas needed (for wheezing and shortness of breath).atenolol 50 mg tablet Take 1 tablet by mouth twice daily.DOCUSATE CALCIUM (STOOL SOFTENER ORAL) Take by mouth as needed.THERAPEUTIC MULTIVITAMIN ORAL TAB Take one(1) tablet daily.No current facility-administered medications for this visit.Current medications that may affect iron absorption and/or blood loss:N/ABaseline laboratory values:WBC (k/uL)Date Value01/04/2017 3.98RBC (m/uL)Date Value01/04/2017 3.69 (L)Hemoglobin (g/dL)Date Value01/04/2017 10.5 (L)Hematocrit (%)Date Value01/04/2017 34.2 (L)MCV (fL)Date Value01/04/2017 92.7MCH (pG)Date Value01/04/2017 28.5MCHC (g/dL)Date Value01/04/2017 30.7RDW-CV (%)Date Value01/04/2017 13.4Platelet Count (k/uL)Date Value01/04/2017 193MPV (fL)Date Value01/04/2017 10.8IronDate Value Ref Range Sgegkp7001/04/2017 66 41 - 186 ug/dL Final TIBCDate Value Ref Range Uzsyjf7701/04/2017 301 232 - 386 ug/dL Final FerritinDate Value Ref Range Tyauol6201/04/2017 192.6 14.7 - 205.1 ng/mL Final FolateDate Value Ref Range Oyfnqg1605/31/2012 16.3 2.8 - 18 ng/mL Final Vitamin L78Awxo Value Ref Range Zblylm3105/31/2012 585 221 - 700 pg/mL Final Transferrin SaturationDate Value Ref Range Rvazym3201/04/2017 22 20 - 55 % Final Assess for the need to augment a patient?s natural red blood cell production:- Pre-surgicalRecommendations according to Blood Management patient care guidelines:- Iron Sucrose 200 mg, IV push, dose(s) 1- Procrit 40,000 unit SQ weekly for 1 dose(s)Clinical information is sent to a provider for review and evaluation fortreatment.Allergies As of Date: 01/05/2017(No Known Allergies)Date Reviewed: 01/04/2017Reviewed by: Kayleen Obrien LPN - Fully AssessedPrescriptions as of 01/05/2017 Sig: IBUPROFEN 800 MG TABLET as needed. HYDROCODONE 5 MG-ACETAMINOPHE* Take 1 tablet by mouth once d* DICLOFENAC SODIUM 75 MG TABLE* Take 75 mg by mouth twice tiarra* GABAPENTIN 300 MG CAPSULE Take 1 capsule by mouth three* NAPROXEN 500 MG TABLET Take 1 tablet by mouth twice * ROPINIROLE 0.5 MG TABLET Take 1 tablet by mouth. Take * ALBUTEROL 90 MCG/ACTUATION AE* Inhale 1-2 Puffs as instructe* ATENOLOL 50 MG TABLET Take 1 tablet by mouth twice * STOOL SOFTENER ORAL Take by mouth as needed. THERAPEUTIC MULTIVITAMIN TABL* Take one(1) tablet daily.Problem List As Of Date 01/05/2017 Noted Resolved Essential Hypertension, Benign [I10] More... Obesity [E66.9] Generalized Osteoarthrosis, Unspecified Site [M* More... KNEE JOINT REPLACEMENT [Z96.659] INVALID FOR* Lumbago [M54.5] INVALID FOR* More... Routine Gynecological Examination [Z01.419] INVALID FOR* Class: Chronic More... Hyperlipidemia [E78.5] INVALID FOR* Impaired Fasting Glucose [R73.01] INVALID FOR* More... Sciatica [M54.30] INVALID FOR* Hip pain [M25.559] INVALID FOR* Osteoarthrosis, unspecified whether generalized*INVALID FOR* Special screening for malignant neoplasms, colo*INVALID FOR* Anemia [D64.9] Lumbosacral spondylosis without myelopathy [M47*INVALID FOR* History of total knee replacement, bilateral [Z*INVALID FOR* History of hip replacement, total, right [Z96.6*INVALID FOR*Follow-up and Disposition History RecordedEncounter Number: [id number] Status:Closed by MARITZA BUTLER on 01/05/17 [facility] PROGRESSon 01-05-2017 PROGRESS HNO ID: [id number] thor: Maritza DueñasService: (none)Author Type: (none)Type: Progress NotesFiled: 01/05/2017 8:59 AMNote Text:Patient referred to Blood Management for evaluation and treatment ofpre-surgical anemia and/or iron deficiency.Surgical Procedure: Hip replacementDate of surgery: 01/23/2017Medical/Surgical History:PAST MEDICAL HISTORYDiagnosis Date- Anemia- Asthma- Back pain- Depression- Essential hypertension, benign- Generalized osteoarthrosis, unspecified site Dr Fuller-ortho- Headache(784.0)- Hyperlipidemia- Impaired fasting glucose- Nocturnal leg cramps spasms controlled with requip- Obesity, unspecified- SnoringPAST SURGICAL HISTORYProcedure Laterality Date- DELIVERY ONLY , low cervical- LIGATE FALLOPIAN TUBE 1998 Tubal ligation- ORAL SURGERY PROCEDURE 1979 jaw reconstruction- PAST SURGICAL HISTORY OF December 14, 2009 Diagnostic Hysteroscopy, Uterine Dilation and Curettage- PAST SURGICAL HISTORY OF December 14, 2009 Novasure Endometrial Ablation- REVISE MEDIAN N/CARPAL TUNNEL SURG 2004 Carpal tunnel decomp RIGHT- TOTAL HIP REPLACEMENT 02/24/2011 right hip- TOTAL KNEE REPLACEMENT 11/12 left knee replacement- TOTAL KNEE REPLACEMENT 03/17/09 right Knee replacement, [facility]/Surgical history:N/ACurrent Outpatient Prescriptions:ibuprofen (MOTRIN) 800 mg tablet as needed.HYDROcodone-acetaminophe n (NORCO) 5-325 mg per tablet Take 1 tablet bymouth once daily as needed. Do not fill until September 09, 2016.diclofenac, EC, (VOLTAREN) 75 mg EC tablet Take 75 mg by mouth twicedaily.gabapentin (NEURONTIN) 300 mg capsule Take 1 capsule by mouth three timesdaily.naproxen (NAPROSYN) 500 mg tablet Take 1 tablet by mouth twice daily asneeded (pain/inflammation, take with food.).rOPINIRole (REQUIP) 0.5 mg tablet Take 1 tablet by mouth. Take 2 hrsbefore bed for restless legs. Take 1/2 tab nightly x2 days, then canincrease to 1 tab daily.albuterol 90 mcg/actuation Aero Inhale 1-2 Puffs as instructed four timesdaily as needed (for wheezing and shortness of breath).atenolol 50 mg tablet Take 1 tablet by mouth twice daily.DOCUSATE CALCIUM (STOOL SOFTENER ORAL) Take by mouth as needed.THERAPEUTIC MULTIVITAMIN ORAL TAB Take one(1) tablet daily.No current facility-administered medications for this visit.Current medications that may affect iron absorption and/or blood loss:N/ABaseline laboratory values:WBC (k/uL)Date Value01/04/2017 3.98RBC (m/uL)Date Value01/04/2017 3.69 (L)Hemoglobin (g/dL)Date Value01/04/2017 10.5 (L)Hematocrit (%)Date Value01/04/2017 34.2 (L)MCV (fL)Date Value01/04/2017 92.7MCH (pG)Date Value01/04/2017 28.5MCHC (g/dL)Date Value01/04/2017 30.7RDW-CV (%)Date Value01/04/2017 13.4Platelet Count (k/uL)Date Value01/04/2017 193MPV (fL)Date Value01/04/2017 10.8IronDate Value Ref Range Ruzekv5501/04/2017 66 41 - 186 ug/dL Final TIBCDate Value Ref Range Egqhli4701/04/2017 301 232 - 386 ug/dL Final FerritinDate Value Ref Range Bnihea1701/04/2017 192.6 14.7 - 205.1 ng/mL Final FolateDate Value Ref Range Nnwvcl4205/31/2012 16.3 2.8 - 18 ng/mL Final Vitamin X66Diiv Value Ref Range Vhvfvi3805/31/2012 585 221 - 700 pg/mL Final Transferrin SaturationDate Value Ref Range Vpccpf1401/04/2017 22 20 - 55 % Final Assess for the need to augment a patient?s natural red blood cellproduction:- Pre-surgicalRecommendations according to Blood Management patient care guidelines:- Iron Sucrose 200 mg, IV push, dose(s) 1- Procrit 40,000 unit SQ weekly for 1 dose(s)Clinical information is sent to a provider for review and evaluation fortreatment. Normal [facility] CBC and Differentialon 01-04 Abs Baso <0.03 Normal <0.11 [facility] Comment on above: Performed By: #### C BCDIF, IRON, CMP ####[place] [id number]#### FERR ####[place] [phone] Abs [place] 0.46 k/uL Normal <0.87 [facility] Comment on above: Performed By: #### C BCDIF, IRON, CMP ####[place] [id number]#### FERR ####[place] [address] [address] [place] [phone] Abs Neut 2.15 k/uL Normal 1.45-7.50 [facility] Comment on above: Performed By: #### C BCDIF, IRON, CMP ####[place] [id number]#### FERR ####[place] [address] [phone] Basophils/100 WBC Auto (Bld) 0.5 % Normal [facility] Comment on above: Performed By: #### C BCDIF, IRON, CMP ####[place] [id number]#### FERR ####[place] [address] [address] [phone] Eosinophils 0.16 10*3/uL Normal <0.46 [facility] Comment on above: Performed By: #### C BCDIF, IRON, CMP ####[place] [id number]#### FERR ####[place] [address] [address] [place] [phone] Eosinophils/100 leukocytes 4.0 % Normal [facility] Comment on above: Performed By: #### C BCDIF, IRON, CMP ####[place] [id number]#### FERR ####[place] [address] [address] [phone] Erythrocyte distribution width Auto Ratio (RBC) 13.4 % Normal 11.5-15.0 [facility] Comment on above: Performed By: #### C BCDIF, IRON, CMP ####[place] [id number]#### FERR ####[place] [address] [address] [place] [phone] Erythrocytes (RBC) 3.69 10*6/uL Low 3.90-5.20 [facility] Comment on above: Performed By: #### C BCDIF, IRON, CMP ####[place] [id number]#### FERR ####[place] [address] [address] [place] [phone] Erythrocytes (RBC) 0.0 /100 WBC Normal 0 [facility] Comment on above: Performed By: #### C BCDIF, IRON, CMP ####[place] [id number]#### FERR ####[place] [address] [address] [phone] Hematocrit (HCT) 34.2 % Low 36.0-46.0 [facility] Comment on above: Performed By: #### C BCDIF, IRON, CMP ####[place] [id number]#### FERR ####[address] [phone] Hemoglobin mass conc (Bld) 10.5 g/dL Low 11.5-15.5 [facility] Comment on above: Performed By: #### C BCDIF, IRON, CMP ####[place] [id number]#### FERR ####[phone] Lymphocytes 1.19 10*3/uL Normal 1.00-4.00 [facility] Comment on above: Performed By: #### C BCDIF, IRON, CMP ####[address] #### FERR ####[address] Av[address] [place] [phone] Lymphocytes/100 leukocytes 29.9 % Normal [facility] Comment on above: Performed By: #### C BCDIF, IRON, CMP ####[address] #### FERR ####[place] [address] [address] [phone] MCH 28.5 pG Normal 26.0-34.0 [facility] Comment on above: Performed By: #### C BCDIF, IRON, CMP ####[place] [id number]#### FERR ####[place] [phone] MCHC mass conc (RBC) 30.7 g/dL Normal 30.5-36.0 [facility] Comment on above: Performed By: #### C BCDIF, IRON, CMP ####[place] [id number]#### FERR ####[place] [phone] MCV 92.7 fL Normal 80.0-100.0 [facility] Comment on above: Performed By: #### C BCDIF, IRON, CMP ####[place] [id number]#### FERR ####[place] [phone] Monocytes/100 leukocytes 11.6 % Normal [facility] Comment on above: Performed By: #### C BCDIF, IRON, CMP ####[place] 280[address]13216-363-2018#### FERR ####[place] [phone] Neutrophils/100 WBC Auto (Bld) 54.0 % Normal [facility] Comment on above: Performed By: #### C BCDIF, IRON, CMP ####[place] [id number]#### FERR ####[address] [place] [phone] Platelet mean volume (PMV) 10.8 fL Normal 9.0-12.7 [facility] Comment on above: Performed By: #### C BCDIF, IRON, CMP ####[place] [id number]#### FERR ####[place] [address] [address] [phone] Platelets 193 10*3/uL Normal 150-400 [facility] Comment on above: Performed By: #### C BCDIF, IRON, CMP ####[place] [id number]#### FERR ####[address] [place] [phone] WBC (Leukocytes) 3.98 10*3/uL Normal 3.70-11.00 [facility] Comment on above: Performed By: #### C BCDIF, IRON, CMP ####[place] [id number]#### FERR ####[place] [phone] Comp Metabolic Panelon 01-04 Alanine aminotransferase (ALT) 20 U/L Normal 7-38 [facility] Comment on above: Performed By: #### C BCDIF, IRON, CMP ####[place] [id number]#### FERR ####[place] [phone] Albumin 4.3 g/dL Normal 3.9-4.9 [facility] Comment on above: Performed By: #### C BCDIF, IRON, CMP ####[place] [id number]#### FERR ####[address] [place] [phone] Alkaline phosphatase (ALP) 68 U/L Normal 32-117 [facility] Comment on above: Performed By: #### C BCDIF, IRON, CMP ####[place] [id number]#### FERR ####[place] [address] [address] [place] [phone] Anion gap 7 mmol/L Low 9-18 [facility] Comment on above: Performed By: #### C BCDIF, IRON, CMP ####[place] [id number]#### FERR ####[place] [address] [address] [place] [phone] Aspartate aminotransferase (AST) 21 U/L Normal 13-35 [facility] Comment on above: Performed By: #### C BCDIF, IRON, CMP ####[place] [id number]#### FERR ####[address] [place] [phone] Bilirubin (total) 0.3 mg/dL Normal 0.2-1.3 [facility] Comment on above: Performed By: #### C BCDIF, IRON, CMP ####[place] [id number]#### FERR ####[place] [address] [address] [place] [phone] Calcium 9.5 mg/dL Normal 8.5-10.2 [facility] Comment on above: Performed By: #### C BCDIF, IRON, CMP ####[place] 280[address]13216-363-2018#### FERR ####[place] [address] [address] [place] [phone] Chloride 102 mmol/L Normal 97-105 [facility] Comment on above: Performed By: #### C BCDIF, IRON, CMP ####[place] [id number]#### FERR ####[place] [address] [place] [address] CO2 32 mmol/L High 22-30 [facility] Comment on above: Performed By: #### C BCDIF, IRON, CMP ####[place] [id number]#### FERR ####[place] [address] Creatinine 1.16 mg/dL High 0.58-0.96 [facility] Comment on above: Performed By: #### C BCDIF, IRON, CMP ####[place] [id number]#### FERR ####[place] [address] eGFR (non-black) 59 mL/min/{1.73_m2} Low >60 [facility] Comment on above: Performed By: #### C BCDIF, IRON, CMP ####[place] [id number]#### FERR ####[place] [address] eGFR (non-black) 49 . Low >60 [facility] Comment on above: Performed By: #### C BCDIF, IRON, CMP ####[place] [id number]#### FERR ####[place] [address] Glucose mass conc 85 mg/dL Normal 74-99 [facility] Comment on above: Performed By: #### C BCDIF, IRON, CMP ####[place] [id number]#### FERR ####[address] Potassium molar conc 5.0 mmol/L Normal 3.7-5.1 [facility] Comment on above: Performed By: #### C BCDIF, IRON, CMP ####[place] [id number]#### FERR ####[place] [phone] Protein 7.4 g/dL Normal 6.3-8.0 [facility] Comment on above: Performed By: #### C BCDIF, IRON, CMP ####[place] [id number]#### FERR ####[place] [phone] Sodium 141 mmol/L Normal 136-144 [facility] Comment on above: Performed By: #### C BCDIF, IRON, CMP ####[place] 2809613216-363-2018#### FERR ####[place] [phone] Urea nitrogen 18 mg/dL Normal 7-21 [facility] Comment on above: Performed By: #### C BCDIF, IRON, CMP ####[place] [id number]#### FERR ####[place] [phone] Ferritinon 01-04-2017 Ferritin 192.6 ng/mL Normal 14.7-205.1 [facility] Comment on above: Performed By: #### C BCDIF, IRON, CMP ####[place] [id number]#### FERR ####[address] [place] [phone] Iron and TIBCon 01-04-2017 Iron 66 ug/dL Normal 41-186 [facility] Comment on above: Performed By: #### C BCDIF, IRON, CMP ####[address] #### FERR ####[place] [address] [address] [place] [phone] TIBC 301 ug/dL Normal 232-386 [facility] Comment on above: Performed By: #### C BCDIF, IRON, CMP ####[place] [id number]#### FERR ####[place] [address] [address] [place] [phone] Transferrin Saturatn 22 % Normal 20-55 [facility] Comment on above: Performed By: #### C BCDIF, IRON, CMP ####[address] #### FERR ####[place] [address] [phone] Staph aureus PCRon 7 MRSA PCR Negative [facility] Comment on above: Performed By: #### S APCR ####[place] [id number] [address] [phone] S aureus Spec Source Nasal Main [facility] Comment on above: Performed By: #### S APCR ####[place] [id number] [address] [place] [phone] Staph aureus PCR Negative [facility] Comment on above: Performed By: #### S APCR ####[place] [id number] [address] [place] [phone] Type and SCR (30D)on 017 ABO/RH(D) Positive [facility] Comment on above: Performed By: #### T SCR30 ####[facility] [phone] Antibody Screen Negative Normal [facility] Comment on above: Performed By: #### T SCR30 ####[facility] [phone] HOSPon 11-22-2016 HOSP Patient:Drake Mir LMRN: Height:5' 8"(1.727 m)Weight:322 lb (146.058 kg)Outpatient Medications as of 01/23/17:enoxaparin (LOVENOX) 40 mg/0.4 mL syrgoxyCODONE IR (ROXICODONE) 5 mg immediate release tabletacetaminophen (TYLENOL EXTRA STRENGTH) 500 mg tabletdocusate sodium (COLACE) 100 mg capsuleiron sucrose (VENOFER) 100 mg iron/5 mL injectiongabapentin (NEURONTIN) 300 mg capsulerOPINIRole (REQUIP) 0.5 mg tabletalbuterol 90 mcg/actuation Aeroatenolol 50 mg tabletDOCUSATE CALCIUM (STOOL SOFTENER ORAL)THERAPEUTIC MULTIVITAMIN ORAL TABAdmission/Clinic Administered Medications as of 01/23/17:lidocaine 10 mg/mL (1 %) 1-2 mg injection (XYLOCAINE)lactated ringers infusionceFAZolin 3 g in sterile water 30 mL (ANCEF)acetaminophen 1,000 mg tab(s) (TYLENOL)scopolamine 1 mg over 3 days 1 Patch (TRANSDERM-SCOP)scopolamine - VERIFY patchscopolamine - REMOVE PATCHProblem List:Essential hypertension, benign [I10]Obesity [E66.9]Generalized osteoarthrosis, unspecified site [M15.9]KNEE JOINT REPLACEMENT [Z96.659]Lumbago [M54.5]Routine gynecological examination [Z01.419]Hyperlipidemia [E78.5]Impaired fasting glucose [R73.01]Sciatica [M54.30]Hip pain [M25.559]Osteoarthrosis, unspecified whether generalized or localized, pelvic region andthigh [M16.9]Special screening for malignant neoplasms, colon [Z12.11]Anemia [D64.9]Lumbosacral spondylosis without myelopathy (HCC) [M46.94]History of total knee replacement, bilateral [Z96.653]History of hip replacement, total, right [Z96.641]Obesity, Class III, BMI >= 40 (morbid obesity) ([facility]) E66.01 [E66.01]OA (osteoarthritis) [M19.90]Allergies:No Known AllergiesDate Verified:01/23/17Lab ValuesLab Value Units Date High LowPOTA* 5.0 mmol/L 01/04/2017 5.1 3.7HEMA* 34.2 % 01/04/2017 46.0 36.0Progress Notes ([facility] OUTPATIENT):Roseanne Salgado, RN, RN 01/19/2017 7:15 AM SignedChronic Care Clinic Visit for: AnemiaDeemir Mir is a 56 year old female who presents here for evaluation andmanagement of:Diagnosis / Problem: Iron Deficiency Anemia: VenoferAs a: New patientBP 155/65 (BP Site: Left Arm, BP Position: Sitting, BP Cuff Size: Regular Adult) Pulse (!) 55 Temp 36.8 ?C (98.2 ?F) Resp 18 SpO2 96%Anemia Initial VisitMaritza Mir is a 56 year old female who presents here for management ofiron Deficiency Anemia and management of pre-surgical anemia and administrationof Iron Sucrose (Venofer).Patient teaching material provided to patient at start of visit. Patientverbalizes understanding of information provided. No questions at this time.Medication Reconciliation :YesTaking all medications as prescribed: YesPHYSICAL EXAMINATION:General appearance: Well appearing, alert, in no acute distress, well-hydrated,well nourished.Alert: person, place and timeSkin: Skin color, texture, turgor normal, no suspicious rashes or lesionsPulmonary: Lungs clear to auscultation. No wheezing, rhonchi, ralesCardiovascular: Regular rhythmLocomotion: normal and steadyLaboratory Studies: Previous lab work acceptable from past 30 days:Date of study: 01/04/2017HB.5HCT: 34.2Ferritin: 192.6TSAT%: 22Vital Signs, pre-infusion: BP155/65 (BP Site: Left Arm, BP Position: Sitting, BP Cuff Size: Regular Adult) Pulse (!) 55 Temp 36.8 ?C (98.2 ?F) Resp 18 SpO2 96%#24 gauge heparin lock inserted in left hand without difficulty.Iron Sucrose (Venofer) 200mg IVP over 5-10 minutes as ordered, started at 1358.Infusion completed at 1410 heparain lock discontinued.Vital Signs, post-infusion: BP 148/75 (BP Site: Right Arm, BP Position: Sitting,BP Cuff Size: Regular Adult) Pulse (!) 54 Temp (!) 35.9 ?C (96.7 ?F) Resp16 SpO2 98%RAUL Estradarogcyndi Notes ([facility] OUTPATIENT):Genny Arauz Ma 01/17/2017 8:52 AM SignedLeft voicemail message to confirm appointment for tomorrow [facility] Vital Signs Date Time Vital Sign Value Performing Clinician Leif velasco 03-02-2023 16:20-0500 Body temperature 96.5 [degF] DO Jennifer oDziernger Work Phone: [facility] 03-02-2023 16:20-0500 Diastolic blood pressure 86 mm[Hg] DO Jennifersabrina Doziernger Work Phone: [facility] 03-02-2023 16:20-0500 Heart rate 82 /min DO Jennifer Doziernger Work Phone: [facility] 03-02-2023 16:20-0500 Respiratory rate 18 /min DO Jennifer Doziernger Work Phone: [facility] 03-02-2023 16:20-0500 SaO2% (BldA) [Mass fraction] 93 % DO Jennifer Edie Work Phone: [facility] 03-02-2023 16:20-0500 Systolic blood pressure 148 mm[Hg] DO Jennifersabrina Doziernger Work Phone: [facility] 09-20-2022 11:18-0400 Body height 172.7 cm Fly Deluna MD Work Phone: [facility] 09-20-2022 11:18-0400 Body weight 162.84 kg Fly Deluna MD Work Phone: [facility] 09-20-2022 11:18-0400 Diastolic blood pressure 88 mm[Hg] Fly Deluna MD Work Phone: [facility] 09-20-2022 11:18-0400 Systolic blood pressure 142 mm[Hg] Fly Deluna MD Work Phone: [facility] Encounters Encounter Date Encounter Type Care Provider Facility Start: 12-08-2024 End: 12-08-2024 ambulatory [facility] Facility:[facility] Start: 11-19-2024 End: 11-19-[address] [facility] Facility:[facility] Start: 05-24-2024 End: 05-24-2024 ambulatory PHY REFERRING Facility:A Start: 03-13-2024 End: 03-13-[address] [facility] Facility:[facility] Start: 05-09-2023 End: 05-09-2023 ambulatory DO Jennifer Foyer Work Phone: [facility] Work Phone: Start: 05-09-2023 End: 05-09-2023 Patient encounter procedure DO Jennifer Foyer Work Phone: [facility] Start: 04-06-2023 End: 04-06-2023 ambulatory DO Jennifer Foyer Work Phone: [facility] Work Phone: Start: 04-06-2023 End: 04-06-2023 Patient encounter procedure DO Jennifer Foyer Work Phone: [facility] Work Phone: Start: 03-28-2023 End: 03-28-2023 Patient encounter procedure DO Jennifer Foyer Work Phone: [facility] Start: 03-02-2023 End: 03-02-2023 Patient encounter procedure DO Jennifer Foyer Work Phone: [facility] Work Phone: Start: 01-17-2023 End: 01-17-2023 ambulatory DO Jennifer Irizarry Work Phone: [facility] Work Phone: Start: 01-17-2023 End: 01-17-2023 Patient encounter procedure DO Jennifer Irizarry Work Phone: [facility], [facility] Work Phone: Start: 11-01-2022 End: 11-02-2022 ambulatory CLEMENT MCCRAY Facility:[facility] Start: 10-11-2022 Non-patient / Non-visit DO Jina Irizarry Work Phone: [facility] Start: 10-11-2022 End: 10-11-2022 ambulatory DO Jennifer Irizarry Work Phone: [facility] Work Phone: Start: 10-11-2022 End: 10-11-2022 Patient encounter procedure DO Jennifer Irizarry Work Phone: [facility]-Cardiovascul ar Services Work Phone: Start: 09-28-2022 Documentation procedure Mammog darien Coordinator [facility] Start: 09-28-2022 Letter encounter Mammography Coordinator [facility] Department Start: 09-27-2022 End: 09-27-2022 ambulatory FLY DELUNA Facility:[facility] Start: 09-27-2022 End: 09-27-2022 Subsequent hospital visit by physician Screen Mammo [facility] Mammogram Comment on above: Encounter for screen ing mammogram for malignant neoplasm of breast [Z12.31] Start: 09-20-2022 End: 09-20-2022 ambulatory FLY DELUNA Facility:[facility] Start: 09-20-2022 End: 09-20-2022 Patient encounter procedure Fly Deluna MD Work Phone: OB/Gynecology Comment on above: Encounter for gyneco logical examination (general) (routine) without abnormal findings (Primary Dx); Encounter for screening mammogram for breast cancer Start: 09-20-2022 End: 09-20-2022 Patient encounter status Fly Deluna MD Work Phone: [facility] Start: 08-17-2022 Telephone encounter Fly Deluna MD Work Phone: OB/Gynecology Comment on above: Orders Start: 03-31-2022 End: 03-31-2022 ambulatory CLEMENT HOWARD SHAZIA Facility:[facility] Start: 03-31-2022 End: 03-31-2022 Subsequent hospital visit by physician Xr [facility] Work Phone: Radiology Start: 10-12-2021 End: 10-12-2021 ambulatory [facility] Work Phone: Start: 10-12-2021 End: 10-12-2021 Patient encounter procedure [facility]-Pulmonary Services/Neurology Start: 01-23-2017 End: 01-24-2017 Evaluation and management of inpatient [facility] Start: 01-16-2017 End: 02-05-2017 Ambulatory [facility] Start: 2009 Patient encounter status Ryan Deluna MD Work Phone: [facility] Work Phone: Procedures Date Procedure Procedure Detail Performing Clinician Start: 01-17-2023 CT of chest without contrast DO Jennifer Irizarry Work Phone: Start: 09-27-2022 End: 09-27-2022 Mammography Fly Deluna MD Work Phone: Start: 03-31-2022 Radiologic exam chest 2 views [facility] Provider Start: 03-23-2021 Mammography Fly Deluna MD Work Phone: Start: 05-29-2012 Lipid 1996 panel - Serum or Plasma Screen Wstr Start: 12-12-2007 H/O: artificial joint KNEE JOINT REPLACEMENT Fly Deluna MD Work Phone: H/O: section History of section H/O: surgery Hx of excision o f dermoid cyst History of decompres reza of median nerve History of carpal tunnel release Plan of Treatment Date Care Activity Detail Author Start: 03-23-2026 HPV TESTING HPV TESTING [facility] Start: 03-23-2026 PAP TESTING PAP TESTING [facility] Start: 09-28-2023 Mammography [facility] Start: 10-06-2022 Covid-19 Vaccine () Covid-19 Vaccine () [facility] Start: 10-06-2022 Influenza vaccination [facility] Start: 05-28-2022 DIABETES SCREEN DIABETES SCREEN [facility] Start: 05-28-2022 Diabetes Screening Diabetes Screenin g [facility] Start: 03-23-2022 Mammography MAMMOGRAM [facility] Start: 02-05-2022 DEPRESSION ASSESSMENT DEPRESSION ASS ESSMENT [facility] Start: 2021 RSV Vaccine (1 - 1-d ose 60+ series) RSV Vaccine (1 - 1-dose 60+ series) [facility] Start: 11-23-2020 COVID-19 VACCINE (3 - Pfizer series) COVID-19 VACCINE (3 - Pfizer series) [facility] Start: 05-29-2017 Lipid 1996 panel - S siobhan or Plasma Lipid Screening [facility] Start: 05-29-2017 LIPID SCREEN LIPID SCREEN [facility] Start: 01-20-2014 Urine microalbumin profile [facility] Start: 10-22-2011 SHINGRIX VACCINE (1 of 2) SHINGRIX VACCINE (1 of 2) [facility] Start: 2006 COLOGUARD (FIT-DNA) COLOGUARD (FIT-D NA) [facility] Start: 2006 Colonoscopy COLONOSCOPY [facility] Start: 2006 COLORECTAL CANCER SCREENING COLORECTAL CANCER SCREENING [facility] Start: [address] [facility] Start: 2006 FECAL OCCULT BLOOD FECAL OCCULT BLOO D [facility] Start: 2006 SIGMOIDOSCOPY SIGMOIDOSCOPY [facility] Start: 10-22-1979 ANNUAL PCP TEAM MARKETING TRAFFIC COORDINATOR ALYSSA DISEASE VISIT ANNUAL PCP TEAM CHRONIC DISEASE VISIT [facility] Start: 10-22-1979 BP CONTROLLED (<130/80) BP CONTROLLE D (<130/80) [facility] Start: 10-22-1979 HEPATITIS C SCREENING HEPATITIS C SC HAYDER [facility] Start: 10-22-1979 HIV SCREENING HIV SCREENING [facility] End: 09-16-2023 CARLIN SCREENING CARLIN SCREENING Radiology Routine Encounter for screening mammogram for malignant neoplasm of breast 1 Occurrences starting 08/18/2022 until 09/16/2023 [facility] Work Phone: Comment on above: 1 Occurrences starti ng 08/18/2022 until 09/16/2023 End: 10-20-2023 CARLIN SCREENING CARLIN SCREENING Radiology Routine Encounter for gynecological examination (general) (routine) without abnormal findings Encounter for screening mammogram for breast cancer 1 Occurrences starting 09/20/2022 until 10/20/2023 [facility] Work Phone: Comment on above: 1 Occurrences starti ng 09/20/2022 until 10/20/2023 [facility] Immunizations Immunization Date Immunization Notes Care Provider Fa [facility] 01-07-2020 influenza, injectabl e, quadrivalent, contains preservative Fly Deluna MD Work Phone: [facility] 01-07-2020 influenza virus vacc ine, unspecified formulation Screen Wstr [facility] 01-23-2017 influenza, injectabl e, quadrivalent, preservative free Fly Deluna MD Work Phone: [facility] 01-23-2017 pneumococcal polysaccharide vaccine, 23 valent Fly Deluna MD Work Phone: [facility] 02-24-2011 influenza virus vacc ine, unspecified formulation Fly Deluna MD Work Phone: [facility] 02-24-2011 pneumococcal polysaccharide vaccine, 23 valent Fly Deluna MD Work Phone: [facility] 12-08-2004 influenza virus vacc ine, unspecified formulation Fly Deluna MD Work Phone: [facility] Work Phone: 01-21-2004 tetanus and diphther ia toxoids, adsorbed, preservative free, for adult use (2 Lf of tetanus toxoid and 2 Lf of diphtheria toxoid) Fly Deluna MD Work Phone: [facility] Work Phone: 02-05-2003 diphtheria, tetanus toxoids and acellular pertussis vaccine, unspecified formulation Fly Deluna MD Work Phone: [facility] Work Phone: Payers Date Payer Category Payer Unknown [id number] 2024 Unknown [id number] 2024 Self-pay [id number] 2012 Unknown [id number] 2012 Unknown [employer] PPO OOS [id number] 2012-Present [phone] [address] [place] [address] PPO [id number] 2009 Unknown [employer] [id number] 1961 Unknown [id number] Unknown [id number] Unknown [id number] Unknown [id number] Unknown [id number] Social History Date Type Detail Facility Start: 02-06-2021 End: 04-09-2022 Tobacco smoking status WIIS Unknown if ever smoked [facility] Start: 12-11-2019 Non-smoker [facility] Start: 1960 Sex Assigned At Female [facility] Start: 05-22-2012 End: 09-20-2022 Tobacco smoking status NHIS Ex-smoker [facility] Work Phone: End: 12-07-1994 History of tobacco use Current smoker [facility] Work Phone: End: 12-07-1994 History of tobacco use Cigarette Smoker [facility] Work Phone: Start: 05-22-2012 End: 01-13-2020 Cigarettes smoked current (pack per day) - Reported 1 [facility] Start: 05-22-2012 End: 09-20-2022 Tobacco use and exposure Smokeless tobacco non-user [facility] Work Phone: Start: 03-23-2021 End: 09-20-2022 Alcohol intake Current non-drinker of alcohol (finding) [facility] Start: 01-13-2020 End: 03-23-2021 Tobacco use panel [facility] National Score (1-10 0), lower number is lower risk Not on file [facility] Start: 05-22-2012 Alcohol [facility] Start: 1960 Sex Assigned At Not on file [facility] Medical Equipment Procedure Code Equipment Code Equipment Origin al Text Equipment Identifier Dates Head Fem -2mm 36mm Hip M - [id number] Start: 02-23-2011 Head Articul/Andreas 36mm +5mm 01/18 Metal Femoral M-Spec Hip - [id number] Start: 01-23-2017 Clinical Notes 01-23-2017 to 09-28-2022 Letter - Coordinator, Mammography - 09/28/2022 4:41 PM Fly Dawn MD - 09/20/2022 11:09 AM EDTTelephone Encounter - Kari Hanks LPN - 08/18/2022 10:35 AM EDT Note Date & Type Note Facility 09-28-2022 Miscellaneous Notes September 29, 2022 PID: [id number] Maritza Mir [address] [place] [address] Dear Ms. Mir, We are pleased to [...] report will be kept on file at [facility] as part of your permanent medical record and are available for your continuing care. Thank you for allowing us to help in meeting your health care needs. Sincerely, Dr. Rey Interpreting Radiologist [facility] (Normal over 40) documented in this encounter [facility] 09-20-2022 Note HNO ID: [id number] Author: Fly Deluna MD Service: ? 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 LMP: 11/17/2009, Ablation Age at Menarche: Age at First : Age at Menopause: [place] Nanny History Comments: Sexual Activity: Yes; Male Contraception: Tubal Ligation PAST MEDICAL HISTORY Diagnosis Date Anemia Asthma Back pain Depression Essential hypertension, benign Generalized osteoarthrosis, unspecified site Dr Fuller-davis Headache(784.0) Hyperlipidemia Impaired fasting glucose Nocturnal leg cramps spasms controlled with requip Obesity, unspecified Snoring PAST SURGICAL HISTORY Procedure Laterality Date ARTHRP ACETBLR/PROX FEM PROSTC AGRFT/ALGRFT 02/24/2011 right hip ARTHRP ACETBLR/PROX FEM PROSTC AGRFT/ALGRFT Left 01/2017 ARTHRP KNE CONDYLEANDPLATU MEDIALANDLAT COMPARTMENTS 11/12 left knee replacement ARTHRP KNE CONDYLEANDPLATU MEDIALANDLAT COMPARTMENTS 02/10/10 right Knee replacement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 LMP: 11/17/2009, Ablation Age at Menarche: Age at First : Age at Menopause: Indian 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 History Comments: Sexual Activity: Yes; Male Contraception: Tubal Ligation PAST MEDICAL HISTORY Diagnosis Date Anemia Asthma Back pain Depression Essential hypertension, benign Generalized osteoarthrosis, unspecified site Dr Fuller-davis Headache(784.0) Hyperlipidemia Impaired fasting glucose Nocturnal leg cramps spasms controlled with requip Obesity, unspecified Snoring PAST SURGICAL HISTORY Procedure Laterality Date ARTHRP ACETBLR/PROX FEM PROSTC AGRFT/ALGRFT 02/24/2011 right hip ARTHRP ACETBLR/PROX FEM PROSTC AGRFT/ALGRFT Left 01/2017 ARTHRP KNE CONDYLE&PLATU MEDIAL&LAT COMPARTMENTS 11/12 left knee replacement ARTHRP KNE CONDYLE&PLATU MEDIAL&LAT COMPARTMENTS 03/17/09 right Knee replacement, [facility] , low cervical CYST/MOLE [...] medication updated:Yes EXAM: BP 142/88 Ht 5' 8" (1.73m) Wt 359 lb (162.8kg) LMP 11/17/2009 [...] external genitalia normal, normal Bartholin's glands, urethra, [place]'s glands, no vulvar lesions, no cervical lesions, [...] wt management appointment, has struggeled w/ wt delivery mgr 2) Follow up one year or sooner as needed Fly Deluna MD documented in this encounter [facility] 08-18-2022 Miscellaneous Notes Message left asking pt to call the office to schedule mammogram. Kari Hanks LPN Please schedule. Fly Deluna MD See pended order below and pt will then be assisted to schedule appointment. Kari Hanks LPN Patient called requesting a carlin screening to be placed,can be reached at [phone] Marta Us documented in this encounter [facility] 03-31-2022 Note HNO ID: [id number] Author: RT Memo(R) Service: ? Author Type: [...] RT Memo(R) March 31, 2022 11:07 AM [facility] 03-31-2022 History of Present illness Narrative [...] 2022 11:07 AM documented in this encounter [facility] 01-23-2017 History of Past i llness Narrative Problem Noted Date Diagnosed Date Resolved Date OA (osteoarthritis) 01/23/2017 01/25/20 17 Osteoarthritis of hip 01/23/20172016 Overview: S/p LTHR 01/23/17 documented as of this encounter (statuses as of 08/18/2022) [facility]12-19-2017 History of Past illness Narrative* Problem Noted Date Diagnosed Date Resolved Date OA (osteoarthritis) 01/23/2017 01/25/20 17 Osteoarthritis of hip 01/23/20172016 Overview: S/p LTHR 01/23/17 documented as of this encounter (statuses as of 09/21/2022) [facility]12-19[facility]2017 History of Past illness Narrative* Problem Noted Date Diagnosed Date Resolved Date OA (osteoarthritis) 01/23/2017 01/25/20 17 Osteoarthritis of hip 01/23/20172016 Overview: S/p LTHR 01/23/17 documented as of this encounter (statuses as of 09/30/2022) [facility]12[facility]2017 History of Past illness Narrative* Problem Noted Date Diagnosed Date Resolved Date OA (osteoarthritis) 01/23/2017 01/25/20 17 Osteoarthritis of hip 01/23/20172016 Overview: S/p LTHR 01/23/17 documented as of this encounter (statuses as of 12/10/2022) [facility] History of Past illness Narrative* Problem Noted Date Diagnosed Date Resolved Date OA (osteoarthritis) 01/23/2017 01/25/20 17 Osteoarthritis of hip 01/23/20172016 Overview: S/p LTHR 01/23/17 documented as of this encounter (statuses as of 12/10/2022) [facility]No [facility] Work Phone: Evaluation note* Diagnosis Encounter for screening mammogram for malignant neoplasm of breast- Primary Other screening mammogram [facility] Diagnosis Encounter for gynecological examination (general) (routine) without abnormal findings- Primary Encounter for screening mammogram for breast cancer documented [facility]* Diagnosis Encounter for screening mammogram for malignant neoplasm of breast Other screening mammogram documented [facility] encounter [facility]* Diagnosis Onset Date Resolution Status Asthma exacerbation acute URI (upper respiratory infection) [facility] Work Phone: Reason for referral (narrative)* Diagnostic Procedure Only (Routine) - Pending Review Specialty Diagnoses / Procedures Referred By Nathalie t Referred To Contact [facility] Diagnoses Encounter for screening mammogram for malignant neoplasm of breast Procedures CARLIN SCREENING SCREENING MAMMOGRAPHY [facility] [employer] Fly Damon MD [address] [place] [address] [facility] [address] [place] [address] Referral ID Status Reason Start Date Expiration Date Visits Requested Visits Authorized [id number] Pending Review Auto-Generat ed Referral 08/18/2022 09/16/2023 1 1 [facility] for referral (narrative)* Diagnostic Procedure Only (Routine) - Pending Review Specialty Diagnoses / Procedures Referred By Nathalie bojorquez Referred To Contact [facility] Diagnoses Encounter for gynecological examination (general) (routine) without abnormal findings Encounter for screening mammogram for breast cancer Procedures CARLIN SCREENING SCREENING MAMMOGRAPHY [facility] [employer] [employer] Fly Damon MD [address] [place] [address] [facility] [address] [place] [address] Referral ID Status Reason Start Date Expiration Date Visits Requested Visits Authorized [id number] Pending Review Auto-Generat ed Referral 09/20/2022 10/20/2023 1 1 [facility] for referral (narrative)* Diagnostic Procedure Only (Routine) - Closed Specialty Diagnoses / Procedures Referred By Nathalie bojorquez Referred To Contact [facility] Diagnoses Encounter for screening mammogram for malignant neoplasm of breast Procedures CARLIN SCREENING SCREENING MAMMOGRAPHY [facility] [employer] [employer] Fly Damon MD [address] [place] [address] [facility] [address] [place] [address] Referral ID Status Reason Start Date Expiration Date V isits Requested Visits Authorized [id number] Closed Auto-Generate d Referral 08/18/2022 09/16/2023 1 1 [facility] for visit Narrative* Diagnostic Procedure Only (Routine) - Closed Specialty Diagnoses / Procedures Referred By Contac t Referred To Contact [facility] Diagnoses Encounter for screening mammogram for malignant neoplasm of breast Procedures CARLIN SCREENING SCREENING MAMMOGRAPHY [facility] [employer] Fly Damon MD [address] [place] [address] [facility] [address] [place] [address] Referral ID Status Reason Start Date Expiration Date V isits Requested Visits Authorized [id number] Closed Auto-Generate d Referral 08/18/2022 09/16/2023 1 1 [facility] Summary Purpose Family History No Family History Records Found Relationship Condition Age at Onset Recorded Date/T geetha mother Asthma Unknown father Kidney disorder Unknown Sleep apnea Unknown Cardiac disease Unknown brother Hypertension Unknown Malignant neoplasm Unknown Advance Directives No Advanced Directives Records Found Advance Directive Response Recorded Date/ Time Living Will No December 27, 020 3:47pm Power of Fruit Thinner No December 28, 2019 3:47pm Advance Directive Response Recorded Date/ Time Living Will No December 27, 2 020 2:47pm Power of Fruit Thinner No December 28, 2019 2:47pm Chief Complaint and Reason for Visit Chief Complaint LT HAND NUMBNESS, CO NSISTENT W/CTS Chief Complaint M79.89 Chief Complaint SOB,COUGH COUGH, SORE THROAT EORDER Reason for Visit Asthma exacerbation URI (upper respiratory infection) Chief Complaint M79.89 SOB,COUGH Additional Source Comments INFORMATION SOURCE (unrecogn ized section and content) DATE CREATED AUTHOR 07/31/2017 [facility] DATE CREATED AUTHOR AUTHOR'S ORGANIZ ATION 11/09/2022 [facility] DATE CREATED AUTHOR AUTHOR'S ORGANIZ ATION 05/26/2024 [facility] DATE CREATED AUTHOR AUTHOR'S ORGANIZ ATION 12/08/2024 [facility] Goals (unrecognized section and content) Goals may be documented in a n alternate sectionGoals may be documented in an alternate sectionGoals may be documented in an alternate sectionGoals may be documented in an alternate sectionGoals may be documented in an alternate section Source Comments (unrecognize d section and content) In the event this informatio n is protected by the Federal Confidentiality of Alcohol and Drug Abuse Patient Records regulations: The Federal rules restrict any use of the information to criminally investigate or prosecute any alcohol or drug abuse patient.[facility] the event this information is protected by the Federal Confidentiality of Alcohol and Drug Abuse Patient Records regulations: The Federal rules restrict any use of the information to criminally investigate or prosecute any alcohol or drug abuse patient.[facility] the event this information is protected by the Federal Confidentiality of Alcohol and Drug Abuse Patient Records regulations: The Federal rules restrict any use of the information to criminally investigate or prosecute any alcohol or drug abuse patient.[facility] the event this information is protected by the Federal Confidentiality of Alcohol and Drug Abuse Patient Records regulations: The Federal rules restrict any use of the information to criminally investigate or prosecute any alcohol or drug abuse patient.[facility] the event this information is protected by the Federal Confidentiality of Alcohol and Drug Abuse Patient Records regulations: The Federal rules restrict any use of the information to criminally investigate or prosecute any alcohol or drug abuse patient.[facility] Reason for Visit (unrecogniz ed section and content) Reason Comments Orders Reason Comments Yearly Exam Care Teams (unrecognized sec tion and content) [employer] Relationship Specialty Start Date End Date Clement Mccray MD PCP - General Family Medicine 09/08/16 [employer] Relationship Specialty Start Date End Date Clement Mccray MD PCP - General Family Medicine 09/08/16 [employer] Relationship Specialty Start Date End Date Clement Mccray MD PCP - General Family Medicine 09/08/16 Team Status: Active Member Role Status Dates Dr. Clement Mccray MD Family Provider Active Jennifer Irizarry DO Primary Care Provider Active Team Status: Active Member Role Status Dates Jennifer Irizarry DO Primary Care Provider Active Dr. Cade Rzd MD Attending Provider Active Team Status: Inactive Member Role Status Dates Jennifer Irizarry DO Primary Care Provi mica, Attending Provider, Referring Provider Active Dr. Armando Stevens MD Other Provider Active [employer] Relationship Specialty Start Date End Date Clement Mccray MD PCP - General Family Medicine 09/08/16 Team Status: Inactive Member Role Status Dates Jennifer M Edie , DO Primary Care Provider, Referring Provider Active RAFFY Dowd Attending Provider Active Team Status: Inactive Member Role Status Dates Jennifer Irizarry , DO Primary Care Provider Active Dr. Armando Stevens MD Attending Provider, Referrin g Provider Active Team Status: Inactive Member Role Status Dates Jennifer Irizarry , DO Primary Care Provi mica, Attending Provider, Referring Provider Active Team Status: Inactive Member Role Status Dates Jennifer Irizarry , DO Primary Care Provider, Attending Provider Active FOR RECORDS PERTAINING TO PATIENTS WHO ARE [...] BE BASED ON THE PRIMARY CLINICAL RECORDS. [employer] provides no warranty or guarantee of the accuracy or completeness of information in this document.
[2024-12-19] MEDS: HYDROcodone Bitartrate/Apap 5/325 Tablet PO (19:42)
[2024-12-19 19:46] VITALS: BP 132/70; PULSE 88; RESP 16; TEMP 36.6; O2SAT 99
== END 2024-12-19 20:09 | disposition home or self-care (01) ==
PROVIDERS: Emergency Provider Student in an Organized Health Care Education/Training Program; PCP Family Medicine; Visit Provider Student in an Organized Health Care Education/Training Program
DX: M25.551 Pain in right hip (principal); E66.01 Morbid (severe) obesity due to excess calories; Z68.43 Body mass index [BMI] 50.0-59.9, adult; I10 Essential (primary) hypertension; Z96.641 Presence of right artificial hip joint; Z79.899 Other long term (current) drug therapy; Z87.891 Personal history of nicotine dependence
CPT/HCPCS: 73502; 96372; 99282